=== PATIENT | female | born 1935 | race Caucasian/White ===

== ENCOUNTER 2020-08-03 11:53 | Outpatient (REF) | payer MEDICARE, SELFPAY | END 2020-08-03 11:54 | disposition home or self-care (01) | LOC: HO.10HDL 11:53 | PROVIDERS: Visit Provider Otolaryngology | DX: L50.1 Idiopathic urticaria (principal) | CPT/HCPCS: 36415; 82785; 86003 ==

== ENCOUNTER 2020-10-19 13:09 | Emergency (ER) | payer MEDICARE, SELFPAY ==
--- NOTE | ~2020-10-19 | CT_ITS ---
EXAMINATION: CT BRAIN AND CHEST X-RAY APPEAR CLINICAL INFORMATION: Resolving aphagia. YESTERDAY. COMPARISON: CT brain 11/22/2019 TECHNIQUE: Chest 2 views. 5 mm thin axial and reformatted 2 mm thin coronal and sagittal images of brain were obtained without contrast. DLP [id number] FINDINGS: BRAIN: There is no acute intra-axial, extra-axial bleed, masses or midline shift. There is no acute infarction in evolution. The lateral ventricles are symmetrical in size and configuration without enlargement. The cabrera to white matter differential is maintained normal. The lateral ventricles are symmetrical in size and mildly prominent. Bone windows reveal no calvarial abnormality. Bilateral paranasal sinuses and mastoid air cells are well-aerated. CHEST X-RAY: Both lungs are fairly well-expanded and clear. The heart size and pulmonary vascularity is normal. No gross bony abnormality seen. CT/CT head/brain wo IV con IMPRESSION: Unremarkable chest exam. No acute intracranial process seen.
[2020-10-19 13:14] VITALS: BP 190/83; PULSE 66; RESP 18; TEMP 36.8; O2SAT 95; BMI 28.3
--- NOTE | 2020-10-19 14:21 | ECG_ITS ---
Test Reason : WEAK Blood Pressure : / mmHG Vent. Rate : 059 BPM Atrial Rate : 059 BPM P-R Int : 174 ms QRS Dur : 094 ms QT Int : 422 ms P-R-T Axes : 018 -18 017 degrees QTc Int : 417 ms Sinus bradycardia Otherwise normal ECG When compared with ECG of 22-NOV-2019 16:24, No significant change was found Referred By: Lilibeth Silva Electronically Signed By:KHURRAM ROB
[2020-10-19 14:45] LABS: MANUAL DIFF FLAG NO
[2020-10-19 14:46] LABS: Basophils Absolute Auto 0.1 X10*3/uL (0.0-0.2); Basophils Percent Auto 0.7 % (0-2); Eosinophils Absolute Auto 0.1 X10*3/uL (0.0-0.4); Eosinophils Percent Auto 1.6 % (0-4); Hematocrit 40.6 % (37-47); Hemoglobin 13.6 g/dl (12.0-16.0); Imm Gran Abs Auto 0.02 X10*3/uL (0.00-0.03); Imm Gran Pct Auto 0.3 % (0.0-0.4); Lymphocytes Absolute Auto 1.8 X10*3/uL (1.2-4.9); Lymphocytes Percent Auto 26.7 % (20-40); Mean Corpuscular HGB Conc 33.5 g/dl (31.0-35.0); Mean Corpuscular Hemoglobin 29.4 pg (27.0-33.0); Mean Corpuscular Volume 87.7 fL (80-98); Mean Platelet Volume 9.5 fL (9.4-12.3); Monocytes Absolute Auto 0.7 X10*3/uL (0.1-1.2); Monocytes Percent Auto 9.4 % (2-11); Neutrophils Absolute Auto 4.2 X10*3/uL (2.0-8.3); Neutrophils Percent Auto 61.3 % (45-73); Platelet Count 251 X10*3/uL (160-400); Red Blood Count 4.63 X10*6/uL (4.20-5.50); Red Cell Distribution Width 12.1 % (11.0-16.0); White Blood Count 6.9 X10*3/uL (4.8-10.8)
[2020-10-19 14:58] LABS: Prothrombin Time 11.9 SEC (10.8-13.0)
[2020-10-19 15:26] LABS: Alanine Aminotransferase 11 U/L (0-31); Albumin Level 4.2 g/dL (3.5-5.0); Alkaline Phosphatase 89 U/L (39-117); Anion Gap 12 (12-20); Aspartate Amino Transferase 17 U/L (5-31); Bilirubin Total 0.8 mg/dL (0.0-1.0); Blood Urea Nitrogen 13 mg/dL (9-16); Calcium 9.2 mg/dL (8.4-10.2); Carbon Dioxide 27 mmol/L (22-29); Chloride 100 mmol/L (96-108); Creatinine Clr Calc Pharmacy 48.8; Estimated Glomerular Filt Rate > 60; Glucose Random 98 mg/dL (60-115); Potassium 4.2 mmol/L (3.3-5.1); Sodium 135 mmol/L (135-145); Total Protein 7.3 g/dL (6.5-8.0)
--- NOTE | 2020-10-19 15:45 | ED_ITS ---
HPI - Neuro Symptoms/Deficit General Chief Complaint: General Medical Stated Complaint: multiple complaints Time Seen by Provider: 10/19/20 14:05 Source: patient Mode of arrival: ambulatory Limitations: no limitations History of Present Illness HPI Narrative: 85-year-old female with a past medical history of hypothyroidism and hyperlipidemia presenting to the ED with complaints of resolve aphasia that occurred yesterday around 14:00 where she was unable to express her thoughts. She reports that the symptoms lasted less than 5 minutes. Reports after that she was able to go grocery shopping without any difficulty. She reports she called her niece today and told her what happened yesterday and her niece is a nurse and told that she should come to the ER for CT scan of her brain for a possible mini-stroke per patient. Patient denies any symptoms at this time. Patient denies being on any anticoagulation. Related Data Previous Rx's Medication Instructions Recorded aspirin 81 mg PO DAILY #30 tab 10/19/20 Allergies Allergy/AdvReac Type Severity Reaction Status Date / Time No Known Allergies Allergy Unverified 01/20/20 19:08 [No Known Allergies*] Review of Systems Review of Systems: Constitutional : No Fever, No Chills, No Night Sweats, No Fatigue, No Malaise ENT/Mouth : No Ear Pain, No Nasal Congestion, No Sinus Pain, No sore throat, No Rhinorrhea Eyes: No Eye Pain, No Swelling, No Redness, No Foreign Body, No Discharge, No Vision Changes Cardiovascular : No Chest Pain, No SOB, No Dyspnea on Exertion, No Orthopnea, No Palpitations Respiratory : No Cough, No Sputum, No Wheezing, No Dyspnea Gastrointestinal : No Nausea, No Vomiting, No Diarrhea, No Constipation, No abdominal Pain, No Hematochezia, No Melena Genitourinary : No Dysuria, No Urinary Frequency, No Urinary Incontinence, No Urgency, No Flank Pain Musculoskeletal : No joint pain, No Myalgias Skin : No lacerations Neuro : Positive resolved aphasia, No Focal weakness, no general weakness, No Numbness, No Paresthesias, No Loss of Consciousness, No Dizziness, No Headache Yes all other systems are reviewed and are negative [facility] Past Medical History Attestation statement: The following information was validated with the patient. Medical History High cholesterol Hypothyroid Surgical History History of hysterectomy Social History Social History Advance Directives: Yes Advance Directives Information Provided: Yes Advance Directives on File: No Physical Exam Vital Signs: Vital Signs: Last Vital Signs Temp 98.2 F 10/19/20 13:14 Pulse 66 10/19/20 13:14 Resp 18 10/19/20 13:14 BP 190/83 H 10/19/20 13:14 Pulse Ox 95 10/19/20 13:14 Body Mass Index 28.3 Vital signs have been reviewed as normal and appeared to be correct. Blood pressure hypertensive at 190/83. Heart rate normal. Respiration rate normal. Temperature normal. Oxygen saturation normal. Appearance: Alert. Oriented X3. No acute distress. Head: Normal external exam. Normocephalic. Atraumatic. Able to rotate head bilaterally. Eyes: PERRLA. EOMI. No nystagmus noted. Conjunctiva and sclera normal. Eyelids normal. Corneal reflex normal. ENT: EAC normal. TM's Normal. Hearing normal. Pharynx normal. Uvula midline. tongue midline. Moist mucous membranes. No trismus noted. No drooling noted. No muffled voice noted. No nystagmus noted. Neck: Normal inspection. Neck supple. FROM. No adenopathy. Trachea midline. Thyroid Normal. No meningeal signs. No neck mass noted. CVS: Normal heart rate and rhythm. Heart sound normal. No murmurs noted. Pulses normal throughout. Respiratory: No respiratory distress. Painless inspiration. Breath sounds normal. No wheezes/rales/rhonchi noted. Chest nontender. No accessory muscle usage noted or decreased air movement noted. Abdomen: Soft and nontender. Bowel sounds normal in all 4 quadrants. No distention noted. No organomegaly noted. No visible injury noted. Back: No CVA tenderness. Full range of motion noted. Skin: Skin warm and dry. Normal skin color. Normal skin turgor. No rashes/lesions/lacerations noted. Extremities: No lower extremity edema. Extremities exhibit normal range of motion. Extremities nontender. Able to shrug shoulders bilaterally and keep up against resistance. Neuro: Oriented X 3. No motor deficit. No sensory deficit. Reflexes normal. Moving all extremities. No focal motor deficits. Cranial nerves II-XI intact bilaterally. Facial strength normal. Normal cognition. Speech normal. Gait normal. Strength 5/5 throughout. No pronator drift. No tremor noted. No fasciculations noted. No rigidity noted. Muscle tone normal throughout. No asterixis noted. Bzyagf-lj-[id number] test normal. Heel to oakes test normal. Tandem gait normal. Does not sway with eyes open. Romberg test negative. Rapid al ternating movement upper extremity normal. Rapid alternating movement lower extremity normal. Hand drop from overhead Misses face. NIHSS score 0. Course Course Course Narrative: 14:21pm - 85-year-old female presenting to the ED with complaints of resolve aphasia that occurred yesterday around 14:00 where she was unable to express her thoughts. She reports that the symptoms lasted less than 5 minutes. Reports after that she was able to go grocery shopping without any difficulty. On exam patient is alert oriented x3. No focal neuro deficits are noted. Normal speech. NIH SS score is 0. Patient has non disabling symptoms and not a tPA candidate as symptoms started yesterday around to PN and again patient has non disabling symptoms. Normal steady gait. Lungs clear to auscultation. CV RRR. Abdomen is soft and nontender. No lower extremity edema is noted or calf tenderness. Plan: Labs, chest x-ray, EKG and CT scan of brain then re-evaluate. Reevaluation(s) Reevaluation #1: - labs obtained and all within normal limits. Chest x-ray negative for any acute processes. CT scan of brain within normal limits No acute processes are noted. EKG is normal sinus bradycardia no acute ischemic. - patient reports that she was at the mailbox and could not remember what she was going to ask a neighbor although resolved quickly and she has not had another episode and does not have any weakness or aphasia at this time. This occurred yesterday around 14:00. - therefore at this time I believe it is safe to discharge the patient on aspirin and instructions follow up with her primary care provider. Patient understands agrees with this plan. Time: 16:13 [facility] - Neuro Symptoms/Deficit Medical Records Attestation: I reviewed the patient's medical records. Lab Data Attestation: I reviewed the patient's lab results. Result diagrams: 10/19/20 14:40 10/19/20 14:40 Labs: Lab Results 10/19/20 10/19/20 10/19/20 Range/Units 14:40 14:40 14:40 WBC 6.9 (4.8-10.8) X10*3/uL RBC 4.63 (4.20-5.50) X10*6/uL Hgb 13.6 (12.0-16.0) g/dl Hct 40.6 (37-47) % MCV 87.7 (80-98) fL MCH 29.4 (27.0-33.0) pg MCHC 33.5 (31.0-35.0) g/dl RDW 12.1 (11.0-16.0) % Plt Count 251 (160-400) X10*3/uL MPV 9.5 (9.4-12.3) fL Immature Gran % (Auto) 0.3 (0.0-0.4) % Neut % (Auto) 61.3 (45-73) % Lymph % (Auto) 26.7 (20-40) % Stanly % (Auto) 9.4 (2-11) % Eos % (Auto) 1.6 (0-4) % Baso % (Auto) 0.7 (0-2) % Lymph # (Auto) 1.8 (1.2-4.9) X10*3/uL Stanly # (Auto) 0.7 (0.1-1.2) X10*3/uL Eos # (Auto) 0.1 (0.0-0.4) X10*3/uL Baso # (Auto) 0.1 (0.0-0.2) X10*3/uL Abs Immat Gran (auto) 0.02 (0.00-0.03) X10*3/uL Absolute Neuts (auto) 4.2 (2.0-8.3) X10*3/uL Absolute Nucleated RBC 0.000 (0.0-0.012) X10*3/uL Nucleated RBC % (auto) 0.0 (0.0-0.2) /100WBC Hold Purple Top PT 11.9 (10.8-13.0) SEC INR 1.0 (0.9-1.1) Sodium (135-145) mmol/L Potassium (3.3-5.1) mmol/L Chloride (96-108) mmol/L Carbon Dioxide (22-29) mmol/L Anion Gap (12-20) BUN (9-16) mg/dL Creatinine (0.5-1.4) mg/dL Estim Creat Clear Calc Estimated GFR Random Glucose (60-115) mg/dL Calcium (8.4-10.2) mg/dL Magnesium 2.0 (1.6-2.6) mg/dL Total Bilirubin (0.0-1.0) mg/dL AST (5-31) U/L ALT (0-31) U/L Alkaline Phosphatase (39-117) U/L Total Protein (6.5-8.0) g/dL Albumin (3.5-5.0) g/dL 10/19/20 10/19/20 Range/Units 14:40 14:40 WBC (4.8-10.8) X10*3/uL RBC (4.20-5.50) X10*6/uL Hgb (12.0-16.0) g/dl Hct (37-47) % MCV (80-98) fL MCH (27.0-33.0) pg MCHC (31.0-35.0) g/dl RDW (11.0-16.0) % Plt Count (160-400) X10*3/uL MPV (9.4-12.3) fL Immature Gran % (Auto) (0.0-0.4) % Neut % (Auto) (45-73) % Lymph % (Auto) (20-40) % Stanly % (Auto) (2-11) % Eos % (Auto) (0-4) % Baso % (Auto) (0-2) % Lymph # (Auto) (1.2-4.9) X10*3/uL Stanly # (Auto) (0.1-1.2) X10*3/uL Eos # (Auto) (0.0-0.4) X10*3/uL Baso # (Auto) (0.0-0.2) X10*3/uL Abs Immat Gran (auto) (0.00-0.03) X10*3/uL Absolute Neuts (auto) (2.0-8.3) X10*3/uL Absolute Nucleated RBC (0.0-0.012) X10*3/uL Nucleated RBC % (auto) (0.0-0.2) /100WBC Hold Purple Top SEE NOTE PT (10.8-13.0) SEC INR (0.9-1.1) Sodium 135 (135-145) mmol/L Potassium 4.2 (3.3-5.1) mmol/L Chloride 100 (96-108) mmol/L Carbon Dioxide 27 (22-29) mmol/L Anion Gap 12 (12-20) BUN 13 (9-16) mg/dL Creatinine 0.77 (0.5-1.4) mg/dL Estim Creat Clear Calc 48.8 Estimated GFR > 60 Random Glucose 98 (60-115) mg/dL Calcium 9.2 (8.4-10.2) mg/dL Magnesium (1.6-2.6) mg/dL Total Bilirubin 0.8 (0.0-1.0) mg/dL AST 17 (5-31) U/L ALT 11 (0-31) U/L Alkaline Phosphatase 89 (39-117) U/L Total Protein 7.3 (6.5-8.0) g/dL Albumin 4.2 (3.5-5.0) g/dL Imaging Data CT scan of brain without contrast: Attestation: I personally reviewed and interpreted this imaging study as follows: Radiologist's impression: FINDINGS: BRAIN: There is no acute intra-axial, extra-axial bleed, masses or midline shift. There is no acute infarction in evolution. The lateral ventricles are symmetrical in size and configuration without enlargement. The cabrera to white matter differential is maintained normal. The lateral ventricles are symmetrical in size and mildly prominent. Bone windows reveal no calvarial abnormality. Bilateral paranasal sinuses and mastoid air cells are well-aerated. Chest x-ray: Attestation: I personally reviewed and interpreted this imaging study as follows: Radiologist's impression: Both lungs are fairly well-expanded and clear. The heart size and pulmonary vascularity is normal. No gross bony abnormality seen. ECG Data Attestation: I personally reviewed and interpreted this ECG as follows: ECG interpretation date: 10/19/20 NIH Stroke Scale Internal: Initial- Upon Arrival Time: 14:21 Level of Consciousness: Alert Level of Consciousness Questions: Answers both questions correctly Level of Consciousness Commands: Performs both tasks correctly Best Gaze: Normal Visual: No visual loss Facial Palsy: Normal Motor Arm (Right): No drift Motor Arm (Left): No drift Motor Leg (Right): No drift Motor Leg (Left): No drift Limb Ataxia: Absent Sensory: Normal Best Language: No aphasia Dysarthia: Normal Extinction and Inattention: No abnormality Score: 0 Discharge Plan Discharge Clinical Impression: Encounter for wellness examination Patient Disposition: Home, Self-Care Instructions: Normal Exam (ED) Prescriptions: New aspirin 81 mg tablet,delayed release (DR/EC) 81 mg PO DAILY Qty: 30 RF: 0 Referrals: Dee Garcia MD [Primary Care Provider] - 2 days Print Language: Spanish
== END 2020-10-19 16:43 | disposition home or self-care (01) ==
PROVIDERS: Physician Assistant Medical; Emergency Provider Emergency Medicine; PCP Internal Medicine
DX: Z03.89 Encounter for observation for other suspected diseases and conditions ruled out (principal)
CPT/HCPCS: 36415; 70450; 71046; 80053; 83735; 85025; 85610; 93005; 99283; 99285

== ENCOUNTER → 2020-11-21 14:39 | Outpatient (BNVA) | payer MEDICARE, SELFPAY | PROVIDERS: PCP Internal Medicine; Visit Provider Surgery Vascular Surgery | DX: R47.01 Aphasia (principal); I65.23 Occlusion and stenosis of bilateral carotid arteries | CPT/HCPCS: 99202 ==

== ENCOUNTER 2021-01-03 12:53 | Outpatient (REF) | payer MEDICARE, SELFPAY ==
--- NOTE | ~2021-01-03 | US_ITS ---
EXAMINATION: BILATERAL LOWER EXTREMITY VENOUS ULTRASOUND (Reflux Exam) CLINICAL INDICATION: This is an 85-year-old female with venous insufficiency and varicose veins. COMPARISON: None. TECHNIQUE: Color flow triplex imaging and compression Doppler was performed to evaluate both the deep and the superficial systems bilaterally. To evaluate the superficial system, the examination was performed in the upright position. Color-flow Doppler ultrasound and compression ultrasound were utilized. In addition, maneuvers were utilized to demonstrate reflux. FINDINGS: 1. DEEP VENOUS ULTRASOUND OF THE RIGHT LOWER EXTREMITY: Common Femoral Vein: Compressible, normal respiratory variation and augmented flow. Femoral vein: Compressible, normal color flow and augmentation. Popliteal Vein: Compressible, normal augmentation. Deep Reflux: There is no evidence of reflux in the deep system in either the common femoral vein or the popliteal vein. . There is no evidence of a Mclean's cyst. 2. SUPERFICIAL ULTRASOUND WITH DOPPLER OF RIGHT LOWER EXTREMITY GREAT SAPHENOUS VEIN: Saphenofemoral junction: 0.8 cm. There is no reflux at the junction. Mid thigh: 0.6 cm. The reflux time is 3003 and 76 ms. Above knee: 0.5 cm. The reflux time is 3416 ms per Below knee: 0.6 cm. The reflux time is 3340 ms. Mid calf: 0.5 cm. The reflux time is 2936 ms. Ankle: 0.3 cm GSV REFLUX: There is reflux beginning in the proximal thigh and extending down the leg. There is no reflux at the junction. DUPLICATED GREAT SAPHENOUS VEIN: There is a duplicated lateral great saphenous vein measuring 0.3 cm without reflux. SMALL SAPHENOUS VEIN: Upper: 0.3 cm Lower: 0.3 cm SSV REFLUX: No evidence of reflux. VEIN OF GIACOMINI: None Imaged. PERFORATORS: There is a 0.3 cm office clinician in the mid calf without reflux. VARICOSITIES: There are 0.3 cm proximal thigh, distal thigh, mid calf varicose veins without reflux. 3. DEEP VENOUS ULTRASOUND OF THE LEFT LOWER EXTREMITY: Common Femoral Vein: Compressible, normal respiratory variation and augmented flow. Femoral vein: Compressible, normal color flow and augmentation. Popliteal Vein: Compressible, normal augmentation. Deep Reflux: There is no evidence of reflux in the deep system in either the common femoral vein or the popliteal vein. There is no evidence of a Mclean's cyst. 4. SUPERFICIAL ULTRASOUND WITH DOPPLER OF LEFT LOWER EXTREMITY GREAT SAPHENOUS VEIN: Saphenofemoral junction: 0.7 cm Mid thigh: 0.4 cm Above knee: 0.4 cm Below knee: 0.3 cm Mid calf: 0.2 cm Ankle: 0.3 cm GSV REFLUX: No evidence of reflux. DUPLICATED GREAT SAPHENOUS VEIN: There is a 0.3 cm duplicated lateral great saphenous vein without reflux. SMALL SAPHENOUS VEIN: Upper: 0.2 cm Lower: 0.2 cm SSV REFLUX: No evidence of reflux. VEIN OF GIACOMINI: None Imaged. PERFORATORS: None Imaged VARICOSITIES: There are 0.3 cm mid calf varicose veins with the reflux time of 3120 ms. There are 0.3 cm proximal and mid thigh, respectively, varicose veins without reflux. US/US venous duplex LE BI IMPRESSION: 1. There is a patent right great saphenous vein without reflux at the junction. The reflux begins in the proximal right thigh. 2. 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 3. There is a right small saphenous vein without reflux. 4. There are varicose veins on the right as described. 5. There is a patent left great saphenous vein without reflux. 6. There is a duplicated left lateral great saphenous vein without reflux. 7. There is a left small saphenous vein without reflux. 8. There are left-sided varicose veins as described.
== END 2021-01-03 12:54 | disposition home or self-care (01) ==
LOC: HO.US 12:53
PROVIDERS: Visit Provider Surgery Vascular Surgery
DX: I83.893 Varicose veins of bilateral lower extremities with other complications (principal)
CPT/HCPCS: 93970

== ENCOUNTER → 2021-02-08 15:14 | Outpatient (BNVA) | payer MEDICARE, SELFPAY | PROVIDERS: PCP Internal Medicine; Referring Provider Internal Medicine; Visit Provider Surgery Vascular Surgery | DX: I83.11 Varicose veins of right lower extremity with inflammation (principal); I65.23 Occlusion and stenosis of bilateral carotid arteries; E78.00 Pure hypercholesterolemia, unspecified; E03.9 Hypothyroidism, unspecified | CPT/HCPCS: 99212 ==

== ENCOUNTER 2021-12-05 11:48 | Outpatient (REF) | payer MEDICARE, SELFPAY ==
[2021-12-05 12:22] LABS: MANUAL DIFF FLAG NO
[2021-12-05 12:40] LABS: Basophils Percent Auto 0.7 % (0-2); Eosinophils Absolute Auto 0.1 X10*3/uL (0.0-0.4); Eosinophils Percent Auto 2.3 % (0-4); Hematocrit 39.1 % (37.0-47.0); Hemoglobin 13.2 g/dl (12.0-16.0); Imm Gran Abs Auto 0.01 X10*3/uL (0.00-0.03); Imm Gran Pct Auto 0.2 % (0.0-0.4); Lymphocytes Absolute Auto 1.9 X10*3/uL (1.2-4.9); Mean Corpuscular HGB Conc 33.8 g/dl (31.0-35.0); Mean Corpuscular Hemoglobin 29.7 pg (27.0-33.0); Mean Corpuscular Volume 87.9 fL (80.0-98.0); Mean Platelet Volume 10.3 fL (9.4-12.3); Monocytes Absolute Auto 0.6 X10*3/uL (0.1-1.2); Monocytes Percent Auto 10.2 % (2-11); Neutrophils Absolute Auto 3.4 x10*3/uL (2.0-8.3); Neutrophils Percent Auto 55.6 % (45-73); Platelet Count 224 X10*3/uL (160-400); Red Blood Count 4.45 X10*6/uL (4.20-5.50); Red Cell Distribution Width 12.1 % (11.0-16.0); White Blood Count 6.1 X10*3/uL (4.8-10.8)
[2021-12-05 14:32] LABS: Free T4 (Free Thyroxine) 1.12 ng/dL (0.71-1.85); Thyroid Stimulating Hormone 1.49 uIU/mL (0.32-4.0); Vitamin D 25-OH Total 62.1 ng/mL (>30)
[2021-12-05 15:00] LABS: Alanine Aminotransferase 16 U/L (0-31); Albumin Level 4.3 g/dL (3.5-5.0); Alkaline Phosphatase 71 U/L (39-117); Anion Gap 14 (12-20); Aspartate Amino Transferase 20 U/L (5-31); Bilirubin Total 0.9 mg/dL (0.0-1.0); Blood Urea Nitrogen 12 mg/dL (9-16); Calcium 9.1 mg/dL (8.4-10.2); Carbon Dioxide 25 mmol/L (22-29); Chloride 103 mmol/L (96-108); Cholesterol 143 mg/dL; Estimated Glomerular Filt Rate > 60; Glucose Fasting 88 mg/dL (60-99); HDL Cholesterol 43 mg/dL; LDL Cholesterol Calculated 79 mg/dl; Potassium 4.2 mmol/L (3.3-5.1); Sodium 138 mmol/L (135-145); Total Protein 7.1 g/dL (6.5-8.0); Triglycerides 109 mg/dL
== END 2021-12-05 11:49 | disposition home or self-care (01) ==
LOC: HO.LAB 11:48
PROVIDERS: PCP Internal Medicine; Visit Provider Internal Medicine
DX: E78.00 Pure hypercholesterolemia, unspecified (principal); E03.9 Hypothyroidism, unspecified; E55.9 Vitamin D deficiency, unspecified
CPT/HCPCS: 36415; 80053; 80061; 82306; 84439; 84443; 85025

== ENCOUNTER 2021-12-14 12:32 | Outpatient (REF) | payer MEDICARE, SELFPAY ==
--- NOTE | ~2021-12-14 | MM_ITS ---
EXAMINATION: MM SCREENING DIGITAL BREAST TOMOSYNTHESIS, BILATERAL CLINICAL INFORMATION: Screening. Asymptomatic. Remote prior mammography 2001 no longer available. The lifetime risk of breast cancer based on the Tyrer-Cuzick Model is 1%. COMPARISON: None (current study represents new baseline exam). TECHNIQUE: Digital breast tomosynthesis is performed in both the craniocaudal and mediolateral oblique views along with computer-aided detection (CAD). Synthesized 2D images are generated from the tomosynthesis. FINDINGS: There are scattered areas of fibroglandular density (ACR BI-RADS breast composition Category b). There are no significant masses, abnormal calcifications, or other abnormalities. The axilla and skin contours are unremarkable. MM/MM tomosynthesis screening BI IMPRESSION: No mammographic evidence of malignancy. ASSESSMENT: BI-RADS 1: Negative RECOMMENDATION: Routine annual mammography screening. This patient's information was entered into a reminder system with a target due date for their next mammogram.
--- NOTE | ~2021-12-14 | MM_ITS ---
EXAMINATION: BONE DENSITOMETRY CLINICAL INDICATION: Asymptomatic menopausal state. COMPARISON: None (current study represents initial baseline exam). TECHNIQUE: Using a [employer] DXA System (software version: 13.1) manufactured by [employer], dual-energy x-ray absorptiometry was performed of the lumbar spine and left hip. The images are of good technical quality. Summary results are attached. FINDINGS: AP SPINE L1-L2 (excluding L3 and L4): The data of L1-L4 has been changed to exclude the L3 and L4 vertebral bodies, because degenerative changes at these levels may cause overestimation of lumbar spine density. BMD 1.173 g/cm2, Z-score 2.0, T-score 0.1, normal. LEFT FEMUR, NECK: BMD 0.824 g/cm2, Z-score 0.8, T-score -1.5, osteopenia. LEFT FEMUR, TOTAL: BMD 1.016 g/cm2, Z-score 2.3, T-score 0.1, normal. IDENTIFIED RISK FACTORS: Menopause, hysterectomy, bilateral oophorectomy. HISTORY OF FRACTURE: None listed. MEDICATIONS: Vitamin D. MM/XR DEXA axial skeleton IMPRESSION: 1. DIAGNOSIS: Osteopenia based on the lowest T-score value of -1.5 in the femoral neck applying World Health Organization criteria. 2. 10-YEAR FRACTURE RISK PREDICTION, FRAX: Major osteoporotic fracture (clinical spine, forearm, hip or shoulder) 13.9%. Hip fracture 3.8%. 3. Treatment Recommendations: NOF guidelines recommend consideration for treatment in postmenopausal women and men age 50 and older presenting with the following: -A hip or vertebral (clinical or morphometric) fracture. -T-score less than or equal to -2.5 at the femoral neck or spine after appropriate evaluation to exclude secondary causes. -Low bone mass at the hip or spine and a 10-year fracture probability by FRAX of greater than or equal to 3% for hip fracture or greater than or equal to 20% for major osteoporotic fracture based on the [place] adapted WHO algorithm. 4. Other Recommendations: All treatment decisions require clinical judgment and consideration of individual patient factors, including patient preferences, comorbidities, previous drug use, risk factors not captured in the FRAX model (e.g. frailty, falls, vitamin D deficiency, increased bone turnover, interval significant decline in bone density) and possible under or overestimation of fracture risk by FRAX. Additional medical evaluation for secondary cause of low bone mineral density may be appropriate. FUTURE SCAN RECOMMENDATION: People with diagnosed cases of osteoporosis or at high risk for fracture should have regular bone mineral density tests. For patients eligible for Medicare, routine testing is allowed once every 2 years. The testing frequency can be increased to one year for patients who have rapidly progressing disease, those who are receiving or discontinuing medical therapy to restore bone mass, or have additional risk factors.
== END 2021-12-14 12:33 | disposition home or self-care (01) ==
LOC: HO.MAMMO 12:32
PROVIDERS: PCP Internal Medicine; Visit Provider Internal Medicine
DX: Z12.31 Encounter for screening mammogram for malignant neoplasm of breast (principal); Z13.820 Encounter for screening for osteoporosis; Z78.0 Asymptomatic menopausal state
CPT/HCPCS: 77063; 77067; 77080

== ENCOUNTER 2022-10-18 11:02 | Outpatient (REF) | payer MEDICARE, SELFPAY ==
[2022-10-18 14:12] LABS: Appearance Urine Cloudy; Color Urine Yellow; Glucose Urine UA Negative (Negative); Leukocyte Esterase Urine Large (3+) (Negative); Nitrite Urine Negative (Negative); PH 7.5 (5.0-9.0); Specific Gravity - Urine <= 1.005 (1.005-1.025); UMIC TRIGGER UA YES; Urine Blood Small (1+) (Negative); Urine Ketones Negative (Negative); Urine Protein Negative (Neg-Trace)
[2022-10-18 14:32] LABS: Bacteria Urine None Seen (None Seen); Hyaline Casts Urine 0-2 /LPF (0-2); RBC Urine 0-2 /HPF (0-2); Squamous Epithelial Cell Urine 0-2 /HPF (0-2); WBC Urine >50 /HPF (0-5)
== END 2022-10-18 11:03 | disposition home or self-care (01) ==
LOC: HO.10HDL 11:02
PROVIDERS: Visit Provider Internal Medicine
DX: R30.0 Dysuria (principal)
CPT/HCPCS: 81001; 81003; 87086

== ENCOUNTER 2022-11-02 11:38 | Emergency (ER) | payer MEDICARE, SELFPAY ==
--- NOTE | ~2022-11-02 | XR_ITS ---
EXAMINATION: XR CHEST CLINICAL INFORMATION: Cough and desaturation COMPARISON: 10/19/2020 TECHNIQUE: 2 views of the chest were obtained. FINDINGS: Nonspecific basal reticular markings unchanged likely minor airways disease. No focal pneumonia. No effusion or pneumothorax. Lung volumes preserved. Stable heart and mediastinum within normal limits. No pulmonary edema. No mass or adenopathy. Nonobstructive gas pattern. Atherosclerotic peripheral vascular disease. Positional scoliosis. XR/XR chest 2V IMPRESSION: No acute disease. 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
[2022-11-02 11:40] VITALS: BP 116/74; PULSE 96; RESP 19; TEMP 36.6; O2SAT 90; BMI 25.6
--- NOTE | 2022-11-02 11:42 | ED_ITS ---
HPI - General Adult General Chief complaint: General Medical Stated complaint: covid test Time Seen by Provider: 11/02/22 11:44 Source: patient Mode of arrival: ambulatory Limitations: no limitations History of Present Illness HPI narrative: Patient is an 87-year-old female with history of hypothyroid, carotid stenosis, and high cholesterol presenting to the emergency department with one week of diarrhea. Recently took Macrobid followed by a course of Cipro for a UTI, states diarrhea began 3-4 days after that. Reports several episodes per hour of diarrhea when not using Imodium. Last episode of diarrhea was 2:30 a.m. today, patient took Imodium prior to arrival. Does not have a thermometer at home but states has felt sweats/chills. Denies abdominaly pain, nausea, vomiting but reports decreased appetite. Denies any blood in stool or dark, tarry stool. Has been able to tolerate fluids, has been drinking water and Gatorade. Reports prior to treatment for UTI she had a cold for approximately 1 week which improved with Mucinex. Reports lingering nonproductive cough. Denies shortness of breath at rest or on exertion. Denies any chest pain. MD complaint: diarrhea Onset (ago): day(s) Location: abdomen Radiation: non-radiation Treatments prior to arrival: other (Imodium) Related Data Home Medications Medication Instructions Recorded Confirmed levothyroxine 50 mcg tablet 50 mcg PO DAILY 11/21/20 rosuvastatin 10 mg tablet 10 mg PO DAILY 11/21/20 nystatin 100,000 unit/gram topical 1 appl topical BID 02/08/21 cream Previous Rx's Medication Instructions Recorded aspirin 81 mg tablet,delayed 81 mg PO DAILY #30 tabs 10/19/20 release vancomycin 125 mg capsule 125 mg PO QID #40 caps 11/02/22 (Vancocin) Allergies Allergy/AdvReac Type Severity Reaction Status Date / Time No Known Allergies Allergy Verified 02/08/21 15:18 [No Known Allergies*] Review of Systems Review of Systems: As per HPI. Yes all other systems are reviewed and are negative Constitutional: Constitutional: Reports as per HPI PMF Past Medical History Medical History High cholesterol Hypothyroid Surgical History History of hysterectomy Social History Social History Advance Directives: No Advance Directives Information Provided: Yes Physical Exam ED Vital Signs: Vital Signs - 24 hr 11/02/22 11:40 11/02/22 11:59 11/02/22 13:51 Temperature 98 F 98.4 F Pulse Rate 96 93 79 Respiratory Rate 19 16 Blood Pressure 116/74 124/62 Pulse Oximetry 90 L 97 95 Oxygen Delivery Method Room Air Room Air Room Air 11/02/22 15:25 11/02/22 15:38 Temperature 97.5 F Pulse Rate 81 Respiratory Rate 15 Blood Pressure 121/64 Pulse Oximetry 92 94 Oxygen Delivery Method Room Air Room Air BMI result Body Mass Index 25.6 Vital signs have been reviewed and appear to be correct. Blood pressure normal. Heart rate normal. Respiratory rate normal. Temperature normal. Oxygen saturation initially low, repeat normal. Const General: cooperative, healthy appearing and no acute distress Orientation/consciousness: oriented to person, oriented to place, oriented to time and patient oriented x3 Limitations: no limitations HENMT Head: Yes normocephalic and Yes atraumatic Ears: external ears normal General nose exam: Normal external nose present Face and sinus: Yes face symmetric Mouth: oropharynx normal and moist mucous membranes Throat: Yes uvula midline Eyes Pupils: Equal, round and reactive pupils present Neck Neck: Yes normal visual inspection and Yes supple Resp Effort & Inspection: normal respiratory effort and able to speak in complete sentences Auscultation: clear to auscultation bilaterally Cardio Rate: regular rate Rhythm: regular rhythm Heart sounds: S1 normal heart sound present and S2 normal heart sound present GI Palpation (GI): Soft to palpation and nontender Auscultation: normoactive bowel sounds General: Yes no CVA tenderness Back/Spine/Pelvis Back: no CVA tenderness Skin General skin exam: elasticity normal and turgor normal Neuro General: oriented to person, oriented to place, oriented to time, patient oriented x3, moves all extremities, no focal motor deficits and CN's II-XI intact bilaterally Cranial nerves: Yes Equal, round and reactive pupils present Cognition (Neuro): normal cognition Extrem General: Yes full ROM, Yes no pedal edema and Yes no calf tenderness Psych Mental Status: mental status grossly normal Affect: normal affect Thought process: Normal thought process present Course Course Course Narrative: RME performed by Antonette Sahu PA-C. Patient is an 87 year old assigned female at presenting to the emergency department with diarrhea and nasal congestion. Patient states that she was told to come here by her niece who is an RN so that she can get tested for COVID because she has diarrhea and congestion. Labs and swab ordered. Patient placed back in the waiting room pending room availability and results. Medical Decision Making Medical Decision Making [facility] Narrative: Patient is an 87-year-old female with history of hypothyroid, carotid stenosis, and high cholesterol presenting to the emergency department with one week of diarrhea. On exam patient is awake, A+Ox3, nontoxic appearing, VS WNL, af ebrile, normal neurological exam without focal deficits, LS CTA throughout, abdomen soft and nontender with normoactive bowel sounds, no CVA tenderness. Given reported symptoms and physical exam findings, differential includes C. diff, other antibiotic associated diarrhea, electrolyte abnormality. Labs notable for leukocytosis with left shift, slight hyponatremia, mildly elevated bilirubin. X-ray notable for no acute disease. My interpretation is in agreement with the radiologist's interpretation. Considered but think unlikely diverticulitis, bowel obstruction, abscess. Stool positive for C. diff. Patient updated on results. Prescribed Vancomycin QID x 10 days. Instructed patient to follow-up with PCP, return precautions discussed bedside. All other results discussed and questions answered, patient agreeable to plan. Differential Diagnosis Differential Diagnoses: The differential diagnosis associated with the pres entation includes C. diff, other antibiotic associated diarrhea, electrolyte abnormality Admission/Observation Consideration of admission/observation: Escalation of care including admission/observation considered Considered upon initial assessment given report of frequent diarrhea and concern for possible electrolyte abnormality Lab Data [facility] Lab Attestation statement: I reviewed the patient's lab results. See above 11/02/22 11:55 11/02/22 11:55 Labs: Lab Results 11/02/22 11/02/22 11/02/22 Range/Units 11:55 11:55 11:55 WBC 17.9 H (4.8-10.8) X10*3/uL RBC 4.52 (4.20-5.50) X10*6/uL Hgb 13.1 (12.0-16.0) g/dl Hct 38.7 (37.0-47.0) % MCV 85.6 (80.0-98.0) fL MCH 29.0 (27.0-33.0) pg MCHC 33.9 (31.0-35.0) g/dl RDW 12.0 (11.0-16.0) % Plt Count 241 (160-400) X10*3/uL MPV 9.9 (9.4-12.3) fL Immature Gran % (Auto) 0.6 H (0.0-0.4) % Neut % (Auto) 80.4 H (45-73) % Lymph % (Auto) 5.7 L (20-40) % Mcleod % (Auto) 12.9 H (2-11) % Eos % (Auto) 0.1 (0-4) % Baso % (Auto) 0.3 (0-2) % Lymph # (Auto) 1.0 L (1.2-4.9) X10*3/uL Mcleod # (Auto) 2.3 H (0.1-1.2) X10*3/uL Eos # (Auto) 0.0 (0.0-0.4) X10*3/uL Baso # (Auto) 0.1 (0.0-0.2) X10*3/uL Abs Immat Gran (auto) 0.10 H (0.00-0.03) X10*3/uL Absolute Neuts (auto) 14.4 H (2.0-8.3) x10*3/uL Absolute Nucleated RBC 0.000 (0.0-0.012) X10*3/uL Nucleated RBC % (auto) 0.0 (0.0-0.2) /100WBC Smear Tech's Comments VERIFIED Sodium 132 L (135-145) mmol/L Potassium 3.4 (3.3-5.1) mmol/L Chloride 98 (96-108) mmol/L Carbon Dioxide 23 (22-29) mmol/L Anion Gap 14 (12-20) BUN 14 (9-16) mg/dL Creatinine 1.01 (0.5-1.4) mg/dL Estim Creat Clear Calc 35.6 Estimated GFR 52 Random Glucose 118 H (60-115) mg/dL Calcium 9.4 (8.4-10.2) mg/dL Magnesium 1.7 (1.6-2.6) mg/dL Total Bilirubin 1.5 H (0.0-1.0) mg/dL AST 25 (5-31) U/L ALT 14 (0-31) U/L Alkaline Phosphatase 91 (39-117) U/L Total Protein 7.1 (6.5-8.0) g/dL Albumin 3.8 (3.5-5.0) g/dL Stl C. cayetanensis PCR Stool Rotavirus A PCR Stl Adenov F 40/41 PCR Stool Astrovirus (PCR) Stool Campylobacter PCR Stool Cryptosporidium PCR Stl Sh Tox Pr E STEC PCR Stool E coli O157 PCR Stl Enterotoxigenic E PCR Stool EPEC (PCR) Stool EAEC (PCR) Stl E. histolytica PCR Stool Giardia Lamblia PCR Stl P. shigelloides PCR Stool Salmonella PCR Stool Sapovirus (PCR) Stl Shigella/EIEC PCR St Y.enterocolitica PCR Stool Vibrio (PCR) Stl Vibrio cholerae PCR Stl Norovirus GI/GII PCR C. difficile Tox B Gene (Negative) COVID-19 (AURELIA) Negative (Negative) COVID-19 Clin Com See Note 11/02/22 11/02/22 Range/Units 14:56 14:56 WBC (4.8-10.8) X10*3/uL RBC (4.20-5.50) X10*6/uL Hgb (12.0-16.0) g/dl Hct (37.0-47.0) % MCV (80.0-98.0) fL MCH (27.0-33.0) pg MCHC (31.0-35.0) g/dl RDW (11.0-16.0) % Plt Count (160-400) X10*3/uL MPV (9.4-12.3) fL Immature Gran % (Auto) (0.0-0.4) % Neut % (Auto) (45-73) % Lymph % (Auto) (20-40) % Mcleod % (Auto) (2-11) % Eos % (Auto) (0-4) % Baso % (Auto) (0-2) % Lymph # (Auto) (1.2-4.9) X10*3/uL Mcleod # (Auto) (0.1-1.2) X10*3/uL Eos # (Auto) (0.0-0.4) X10*3/uL Baso # (Auto) (0.0-0.2) X10*3/uL Abs Immat Gran (auto) (0.00-0.03) X10*3/uL Absolute Neuts (auto) (2.0-8.3) x10*3/uL Absolute Nucleated RBC (0.0-0.012) X10*3/uL Nucleated RBC % (auto) (0.0-0.2) /100WBC Smear Tech's Comments Sodium (135-145) mmol/L Potassium (3.3-5.1) mmol/L Chloride (96-108) mmol/L Carbon Dioxide (22-29) mmol/L Anion Gap (12-20) BUN (9-16) mg/dL Creatinine (0.5-1.4) mg/dL Estim Creat Clear Calc Estimated GFR Random Glucose (60-115) mg/dL Calcium (8.4-10.2) mg/dL Magnesium (1.6-2.6) mg/dL Total Bilirubin (0.0-1.0) mg/dL AST (5-31) U/L ALT (0-31) U/L Alkaline Phosphatase (39-117) U/L Total Protein (6.5-8.0) g/dL Albumin (3.5-5.0) g/dL Stl C. cayetanensis PCR Cancelled Stool Rotavirus A PCR Cancelled Stl Adenov F 40/41 PCR Cancelled Stool Astrovirus (PCR) Cancelled Stool Campylobacter PCR Cancelled Stool Cryptosporidium PCR Cancelled Stl Sh Tox Pr E STEC PCR Cancelled Stool E coli O157 PCR Cancelled Stl Enterotoxigenic E PCR Cancelled Stool EPEC (PCR) Cancelled Stool EAEC (PCR) Cancelled Stl E. histolytica PCR Cancelled Stool Giardia Lamblia PCR Cancelled Stl P. shigelloides PCR Cancelled Stool Salmonella PCR Cancelled Stool Sapovirus (PCR) Cancelled Stl Shigella/EIEC PCR Cancelled St Y.enterocolitica PCR Cancelled Stool Vibrio (PCR) Cancelled Stl Vibrio cholerae PCR Cancelled Stl Norovirus GI/GII PCR Cancelled C. difficile Tox B Gene POSITIVE A* (Negative) COVID-19 (AURELIA) (Negative) COVID-19 Clin Com Independent Interpretation I performed an independent interpretation of an: Plain X-Ray Interpretation: I independently reviewed the x-ray and agree with the radiologist's interpretation of no acute disease Radiology Impression Discussion of test interpretation with radiology: I have reviewed the radiologist's reading. Radiologist Impression: XR/XR chest 2V IMPRESSION: No acute disease. 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 External Record Review External record reviewed: Inpatient record, Office record and Outpatient record Prescription Management I considered prescription management with: Antibiotic (vanco) Discharge Plan Discharge Clinical Impression: Clostridium difficile diarrhea Patient Disposition: Home, Self-Care Instructions: C. Diff (Clostridioides Difficile) Infection (ED) Additional Instructions: You are being treated for a C. diff infection with an antibiotic called Vancomycin. Please follow-up with your primary care provider within 2 days. Return to the emergency department with abdominal pain, worsening diarrhea, chest pain, shortness of breath, fever 100.4? F or greater, or any other concerning symptoms. Prescriptions: New vancomycin [Vancocin] 125 mg capsule 125 mg PO QID Qty: 40 0RF No Action aspirin 81 mg tablet,delayed release (DR/EC) 81 mg PO DAILY Qty: 30 0RF
[2022-11-02 11:59] VITALS: PULSE 93; O2SAT 97
--- NOTE | 2022-11-02 12:03 | PC.NURSE ---
pt SpO2 90%on RA, reassessed in exam room pt SpO2 97% RA, lungs CTA
[2022-11-02 13:51] VITALS: BP 124/62; PULSE 79; RESP 16; TEMP 36.9; O2SAT 95
[2022-11-02 15:25] VITALS: BP 121/64; PULSE 81; RESP 15; TEMP 36.4; O2SAT 92
[2022-11-02 15:38] VITALS: O2SAT 94
== END 2022-11-02 17:47 | disposition home or self-care (01) ==
PROVIDERS: Emergency Provider Emergency Medicine Emergency Medical Services
DX: A04.72 Enterocolitis due to Clostridium difficile, not specified as recurrent (principal); E78.00 Pure hypercholesterolemia, unspecified; Z20.822 Contact with and (suspected) exposure to COVID-19
CPT/HCPCS: 71046; 80053; 83735; 85025; 87324; 87493; 87507; 87635; 99283; 99284

== ENCOUNTER 2022-11-12 09:58 | Outpatient (REF) | payer MEDICARE, SELFPAY ==
[2022-11-12 10:33] LABS: MANUAL DIFF FLAG NO
[2022-11-12 12:31] LABS: Basophils Absolute Auto 0.1 X10*3/uL (0.0-0.2); Basophils Percent Auto 0.5 % (0-2); Eosinophils Absolute Auto 0.3 X10*3/uL (0.0-0.4); Eosinophils Percent Auto 2.8 % (0-4); Hematocrit 37.8 % (37.0-47.0); Hemoglobin 12.2 g/dl (12.0-16.0); Imm Gran Abs Auto 0.07 X10*3/uL (0.00-0.03); Imm Gran Pct Auto 0.6 % (0.0-0.4); Lymphocytes Absolute Auto 1.6 X10*3/uL (1.2-4.9); Lymphocytes Percent Auto 13.5 % (20-40); Mean Corpuscular HGB Conc 32.3 g/dl (31.0-35.0); Mean Corpuscular Volume 89.8 fL (80.0-98.0); Mean Platelet Volume 9.7 fL (9.4-12.3); Monocytes Absolute Auto 0.8 X10*3/uL (0.1-1.2); Monocytes Percent Auto 7.2 % (2-11); Neutrophils Absolute Auto 8.8 x10*3/uL (2.0-8.3); Neutrophils Percent Auto 75.4 % (45-73); Platelet Count 354 X10*3/uL (160-400); Red Blood Count 4.21 X10*6/uL (4.20-5.50); Red Cell Distribution Width 12.3 % (11.0-16.0); White Blood Count 11.6 X10*3/uL (4.8-10.8)
[2022-11-12 13:02] LABS: Anion Gap 15 (12-20); Blood Urea Nitrogen 9 mg/dL (9-16); Calcium 9.5 mg/dL (8.4-10.2); Carbon Dioxide 26 mmol/L (22-29); Chloride 103 mmol/L (96-108); Estimated Glomerular Filt Rate > 60; Glucose Random 93 mg/dL (60-115); Potassium 3.7 mmol/L (3.3-5.1); Sodium 140 mmol/L (135-145)
[2022-11-12 13:25] LABS: Free T4 (Free Thyroxine) 1.12 ng/dL (0.71-1.85); Thyroid Stimulating Hormone 2.68 uIU/mL (0.32-4.0)
== END 2022-11-12 09:59 | disposition home or self-care (01) ==
LOC: HO.LAB 09:58
PROVIDERS: PCP Internal Medicine; Visit Provider Internal Medicine
DX: E03.9 Hypothyroidism, unspecified (principal); N18.9 Chronic kidney disease, unspecified; B96.89 Other specified bacterial agents as the cause of diseases classified elsewhere
CPT/HCPCS: 36415; 80048; 84439; 84443; 85025

== ENCOUNTER 2022-11-26 11:58 | Outpatient (REF) | payer MEDICARE, SELFPAY ==
[2022-11-26 13:52] LABS: Appearance Urine Turbid; Color Urine Yellow; Glucose Urine UA Negative (Negative); Leukocyte Esterase Urine Large (3+) (Negative); Nitrite Urine Positive (Negative); PH 6.5 (5.0-9.0); UMIC TRIGGER UACC YES; Urine Blood Trace (Negative); Urine Ketones Negative (Negative); Urine Protein 30 (1+) mg/dL (Neg-Trace)
[2022-11-26 13:55] LABS: Bacteria Urine 4+ (None Seen); RBC Urine 0-2 /HPF (0-2); UACC Culture Trigger YES; WBC Urine >50 /HPF (0-5)
== END 2022-11-26 11:59 | disposition home or self-care (01) ==
LOC: HO.10HDLNP 11:58
PROVIDERS: Visit Provider Internal Medicine
DX: R30.0 Dysuria (principal)
CPT/HCPCS: 81001; 87086; 87088; 87186

== ENCOUNTER 2022-11-28 09:27 | Emergency (ER) | payer MEDICARE, SELFPAY ==
[2022-11-28 09:43] VITALS: BP 100/52; PULSE 82; RESP 18; TEMP 36.7; O2SAT 92; BMI 25.6
--- NOTE | 2022-11-28 11:33 | ED.NAVMDI ---
HPI - Nausea/Vomiting/Diarrhea General Chief complaint: Nausea/Vomiting/Diarrhea Stated complaint: diarrhea Time Seen by Provider: 11/28/22 10:44 Source: patient Mode of arrival: ambulatory Limitations: no limitations History of Present Illness HPI Narrative: 87-year-old female with history of hypothyroid, carotid stenosis, and high cholesterol, C diff diagnosis on November 02 completed 10 days of vancomycin who presents to the ER with multiple episodes of diarrhea since yesterday. Patient reports on November 13 she was prescribed a course of ciprofloxacin for a urinary tract infection. She had a another urinary tract infection on November 26 and was prescribed a cephalosporin. Yesterday morning she developed diarrhea which is nonbloody. Patient reports multiple episodes unable to quantify since yesterday. She did have some chills yesterday but no fever. She had 1 episode of vomiting yesterday but none today. She has had abdominal cramping. Associated nausea: Yes Related Data Home Medications Medication Instructions Recorded Confirmed levothyroxine 50 mcg tablet 50 mcg PO DAILY 11/21/20 rosuvastatin 10 mg tablet 10 mg PO DAILY 11/21/20 nystatin 100,000 unit/gram topical 1 appl topical BID 02/08/21 cream Previous Rx's Medication Instructions Recorded aspirin 81 mg tablet,delayed 81 mg PO DAILY #30 tabs 10/19/20 release vancomycin 125 mg capsule 125 mg PO QID #40 caps 11/02/22 (Vancocin) fidaxomicin 200 mg tablet 200 mg PO Q12H 10 days #20 tabs 11/28/22 Allergies Allergy/AdvReac Type Severity Reaction Status Date / Time No Known Allergies Allergy Verified 02/08/21 15:18 [No Known Allergies*] Review of Systems Review of Systems: Yes all other systems are reviewed and are negative Constitutional: Constitutional: Reports no additional constitutional complaints, Denies body ache(s), Reports chills, Denies fever(s), Denies headache(s) and Denies weakness Eyes: Eyes: Reports no additional eye complaints and Denies change in vision ENT: Reports system reviewed and no additional complaints, except as documented, Denies dizziness, Denies headache(s), Denies nasal congestion, Denies nasal discharge and Denies neck pain Cardiovascular: Cardiovascular: Reports no additional cardiovascular complaints, Denies chest pain, Denies leg edema and Denies dyspnea Respiratory: Respiratory: Reports no additional respiratory complaints, Denies cough and Denies dyspnea Gastrointestinal: Gastrointestinal: Reports no additional gastrointestinal complaints, Reports abdominal pain, Reports diarrhea, Reports nausea and Reports vomiting Genitourinary: Genitourinary: Reports no additional female genitourinary complaints and Denies urinary incontinence Musculoskeletal: Musculoskeletal: Reports no additional musculoskeletal complaints, Denies back pain, Denies arthralgias, Denies joint swelling, Denies neck pain, Denies numbness and Denies tingling Integumentary/Breasts: Skin/Breast: Reports system reviewed and no additional complaints, except as docu and Denies rash Neurologic: Reports system reviewed and no additional complaints, except as documented, Denies Abnormal speech present, Denies dizziness, Denies headache(s), Denies numbness, Denies tingling and Denies weakness PMFSH Past Medical History Attestation statement: The following information was validated with the patient. Source: old records reviewed and nursing notes reviewed Medical History High cholesterol Hypothyroid Surgical History History of hysterectomy Social History Social History Alcohol intake: never Smoked in Last 30 Days: No Use of substances other than those prescribed or required for medical reasons: No Advance Directives: No Physical Exam Vital Signs: Vital Signs: Last Vital Signs Temp 98.0 F 11/28/22 09:43 Pulse 84 11/28/22 14:10 Resp 16 11/28/22 14:10 BP 125/53 L 11/28/22 14:10 Pulse Ox 92 11/28/22 14:10 O2 Del Method Room Air 11/28/22 14:10 BMI result Body Mass Index 25.6 Const: General: cooperative, healthy appearing, comfortable and no acute distress Orientation/consciousness: patient oriented x3 Limitations: no limitations HEENT: Head: Yes normal to inspection Ears: hearing grossly normal bilaterally General nose exam: Normal external nose present Face and sinus: Yes normal facial exam Mouth: Normal oral and palatal mucosa present Throat: Yes posterior oropharynx normal Eyes: General: appearance normal, both eyes and all related structures Pupils: Equal, round and reactive pupils present Neck: Neck: Yes normal visual inspection Chest: Chest palpation & inspection: normal inspection of the chest Resp: Effort & Inspection: normal respiratory effort Auscultation: clear to auscultation bilaterally Cardio: Rate: regular rate Rhythm: regular rhythm Peripheral pulses: Peripheral pulses 2+ throughout GI: Inspection: Yes normal to inspection Palpation (GI): Soft to palpation, nontender and no guarding Auscultation: normal bowel sounds Back/Spine/Pelvis: Thoracic/Lumbar Spine: thoracic and lumbar spine normal to inspection Skin: General skin exam: no rashes or lesions noted Neuro: General: patient oriented x3, no focal motor deficits and normal sensation to monofilament Cranial nerves: Yes Equal, round and reactive pupils present Cognition (Neuro): normal cognition Speech: No Abnormal speech present Gait exam (Neuro): Normal gait present Motor exam (neuro): 5/5 motor strength present throughout Extrem: General: Yes normal to inspection Course Course Course Narrative: C diff is positive. Stool culture was sent and is pending. I reviewed the labs. Patient has a mild leukocytosis with no shift. She has normal renal function. Repeat abdominal exam is benign. She has no focal tenderness. Overall she is nontoxic appearing. Patient appears very well hydrated. As this is her 2nd course of antibiotics for C diff we will try to prescribe her fidaxomicin. I explained to the patient and may be difficult for pharmacy to get over the insurance to cover this. She does have a prescription for vancomycin at home and I explained to her that if her insurance does not cover this to take the vancomycin instead. She is currently on cefuroxime for urinary tract infection. She has a urine culture from November 26 which shows greater than 100,000 E coli pansensitive. I recommend she only take the cefuroxime for 5 days total and then discontinue it. Recommend patient follow-up with primary care outpatient. Reviewed worrisome signs and symptoms of when to return to the emergency room. Comfortable plan for discharge home. Medical Decision Making Medical Decision Making [facility] Narrative: 87-year-old female who was diagnosed with C diff on November 02 and completed a 10 day course of vancomycin who has had several rounds of antibiotics since for urinary tract infections presents to the ER with complaints of multiple episodes of diarrhea since yesterday with abdominal cramping, chills and 1 episode of vomiting. On exam patient has no focal abdominal pain. Normal bowel sounds. Well-hydrated appearing. Vital stable. Will check labs, C diff studies Differential Diagnosis Differential Diagnoses: The differential diagnosis associated with the presentation includes C diff, infectious diarrhea Low concern for acute abdominal pathology Admission/Observation Consideration of admission/observation: Escalation of care including admission/observation considered c diff positive however patient well appearing, no fever, tolerating po, no focal abdominal pain, well hydrated-no need for admit Lab Data MDM Lab Attestation statement: I reviewed the patient's lab results. C diff positive Mild leukocytosis with no shift. Normal renal function 11/28/22 11:47 11/28/22 11:47 Labs: Lab Results 11/28/22 11/28/22 11/28/22 Range/Units 11:19 11:47 11:47 WBC 16.5 H (4.8-10.8) X10*3/uL RBC 4.41 (4.20-5.50) X10*6/uL Hgb 13.0 (12.0-16.0) g/dl Hct 38.6 (37.0-47.0) % MCV 87.5 (80.0-98.0) fL MCH 29.5 (27.0-33.0) pg MCHC 33.7 (31.0-35.0) g/dl RDW 13.1 (11.0-16.0) % Plt Count 223 D (160-400) X10*3/uL MPV 10.4 (9.4-12.3) fL Immature Gran % (Auto) 0.5 H (0.0-0.4) % Neut % (Auto) 84.4 H (45-73) % Lymph % (Auto) 6.9 L (20-40) % [place] % (Auto) 7.7 (2-11) % Eos % (Auto) 0.1 (0-4) % Baso % (Auto) 0.4 (0-2) % Lymph # (Auto) 1.1 L (1.2-4.9) X10*3/uL [place] # (Auto) 1.3 H (0.1-1.2) X10*3/uL Eos # (Auto) 0.0 (0.0-0.4) X10*3/uL Baso # (Auto) 0.1 (0.0-0.2) X10*3/uL Abs Immat Gran (auto) 0.09 H (0.00-0.03) X10*3/uL Absolute Neuts (auto) 13.9 H (2.0-8.3) x10*3/uL Absolute Nucleated RBC 0.000 (0.0-0.012) X10*3/uL Nucleated RBC % (auto) 0.0 (0.0-0.2) /100WBC Sodium 133 L (135-145) mmol/L Potassium 3.8 (3.3-5.1) mmol/L Chloride 99 (96-108) mmol/L Carbon Dioxide 23 (22-29) mmol/L Anion Gap 15 (12-20) BUN 12 (9-16) mg/dL Creatinine 0.88 (0.5-1.4) mg/dL Estim Creat Clear Calc 40.9 Estimated GFR > 60 Random Glucose 96 (60-115) mg/dL Lactic Acid (0.5-2.0) mmol/L Calcium 8.8 D (8.4-10.2) mg/dL Magnesium 1.9 (1.6-2.6) mg/dL Total Bilirubin 1.5 H (0.0-1.0) mg/dL Direct Bilirubin 0.5 (0.0-0.5) mg/dL AST 16 (5-31) U/L ALT 13 (0-31) U/L Alkaline Phosphatase 76 (39-117) U/L Total Protein 6.9 (6.5-8.0) g/dL Albumin 3.8 (3.5-5.0) g/dL C. difficile Tox B Gene POSITIVE A* (Negative) C. difficile Toxin A&B Negative (Negative) C. difficile Interpret SEE NOTE 11/28/22 Range/Units 11:47 WBC (4.8-10.8) X10*3/uL RBC (4.20-5.50) X10*6/uL Hgb (12.0-16.0) g/dl Hct (37.0-47.0) % MCV (80.0-98.0) fL MCH (27.0-33.0) pg MCHC (31.0-35.0) g/dl RDW (11.0-16.0) % Plt Count (160-400) X10*3/uL MPV (9.4-12.3) fL Immature Gran % (Auto) (0.0-0.4) % Neut % (Auto) (45-73) % Lymph % (Auto) (20-40) % [place] % (Auto) (2-11) % Eos % (Auto) (0-4) % Baso % (Auto) (0-2) % Lymph # (Auto) (1.2-4.9) X10*3/uL [place] # (Auto) (0.1-1.2) X10*3/uL Eos # (Auto) (0.0-0.4) X10*3/uL Baso # (Auto) (0.0-0.2) X10*3/uL Abs Immat Gran (auto) (0.00-0.03) X10*3/uL Absolute Neuts (auto) (2.0-8.3) x10*3/uL Absolute Nucleated RBC (0.0-0.012) X10*3/uL Nucleated RBC % (auto) (0.0-0.2) /100WBC Sodium (135-145) mmol/L Potassium (3.3-5.1) mmol/L Chloride (96-108) mmol/L Carbon Dioxide (22-29) mmol/L Anion Gap (12-20) BUN (9-16) mg/dL Creatinine (0.5-1.4) mg/dL Estim Creat Clear Calc Estimated GFR Random Glucose (60-115) mg/dL Lactic Acid 1.0 (0.5-2.0) mmol/L Calcium (8.4-10.2) mg/dL Magnesium (1.6-2.6) mg/dL Total Bilirubin (0.0-1.0) mg/dL Direct Bilirubin (0.0-0.5) mg/dL AST (5-31) U/L ALT (0-31) U/L Alkaline Phosphatase (39-117) U/L Total Protein (6.5-8.0) g/dL Albumin (3.5-5.0) g/dL C. difficile Tox B Gene (Negative) C. difficile Toxin A&B (Negative) C. difficile Interpret Prescription Management I considered prescription management with: Antibiotic see discussion in course Discharge Plan Discharge Clinical Impression: Clostridium difficile infection Patient Disposition: Home, Self-Care Instructions: C. Diff (Clostridioides Difficile) Infection (ED) Additional Instructions: Only take your cefuroxime for a total of 5 days. You should only have 4 pills left when this time for you to stop taking this medication You do have C diff Increase probiotics in her diet and eat a yogurt daily Start taking Fidaxomicin. If the pharmacy cannot get you this medication or if your insurance will not cover the medication please take the vancomycin instead for 10 days. Return for worsening abdominal pain, fever, vomiting, feeling dizzy or lightheaded If you continue to get C diff you may be a candidate for a fecal transplant. This can be discussed with your primary care Prescriptions: New fidaxomicin 200 mg tablet 200 mg PO Q12H 10 Days Qty: 20 0RF No Action aspirin 81 mg tablet,delayed release (DR/EC) 81 mg PO DAILY Qty: 30 0RF vancomycin [Vancocin] 125 mg capsule 125 mg PO QID Qty: 40 0RF Referrals: Sunil Gastelum MD [Primary Care Provider] - 1 week (as needed)
[2022-11-28 12:00] LABS: MANUAL DIFF FLAG NO
[2022-11-28 12:07] LABS: Basophils Absolute Auto 0.1 X10*3/uL (0.0-0.2); Basophils Percent Auto 0.4 % (0-2); Eosinophils Percent Auto 0.1 % (0-4); Hematocrit 38.6 % (37.0-47.0); Imm Gran Abs Auto 0.09 X10*3/uL (0.00-0.03); Imm Gran Pct Auto 0.5 % (0.0-0.4); Lymphocytes Absolute Auto 1.1 X10*3/uL (1.2-4.9); Lymphocytes Percent Auto 6.9 % (20-40); Mean Corpuscular HGB Conc 33.7 g/dl (31.0-35.0); Mean Corpuscular Hemoglobin 29.5 pg (27.0-33.0); Mean Corpuscular Volume 87.5 fL (80.0-98.0); Mean Platelet Volume 10.4 fL (9.4-12.3); Monocytes Absolute Auto 1.3 X10*3/uL (0.1-1.2); Monocytes Percent Auto 7.7 % (2-11); Neutrophils Absolute Auto 13.9 x10*3/uL (2.0-8.3); Neutrophils Percent Auto 84.4 % (45-73); Platelet Count 223 X10*3/uL (160-400); Red Blood Count 4.41 X10*6/uL (4.20-5.50); Red Cell Distribution Width 13.1 % (11.0-16.0); White Blood Count 16.5 X10*3/uL (4.8-10.8)
[2022-11-28 12:27] LABS: Anion Gap 15 (12-20)
[2022-11-28 12:59] LABS: Alanine Aminotransferase 13 U/L (0-31); Albumin Level 3.8 g/dL (3.5-5.0); Alkaline Phosphatase 76 U/L (39-117); Aspartate Amino Transferase 16 U/L (5-31); Bilirubin Direct 0.5 mg/dL (0.0-0.5); Bilirubin Total 1.5 mg/dL (0.0-1.0); Blood Urea Nitrogen 12 mg/dL (9-16); Calcium 8.8 mg/dL (8.4-10.2); Carbon Dioxide 23 mmol/L (22-29); Chloride 99 mmol/L (96-108); Creatinine Clr Calc Pharmacy 40.9; Estimated Glomerular Filt Rate > 60; Glucose Random 96 mg/dL (60-115); Magnesium 1.9 mg/dL (1.6-2.6); Potassium 3.8 mmol/L (3.3-5.1); Sodium 133 mmol/L (135-145); Total Protein 6.9 g/dL (6.5-8.0)
[2022-11-28 13:21] LABS: CDiff Gene PCR POSITIVE (Negative)
[2022-11-28 13:57] LABS: CDIFF Internal ctrl Dots and bkg OK (V); CDiff Toxin Negative (Negative)
[2022-11-28 14:10] VITALS: BP 125/53; PULSE 84; RESP 16; O2SAT 92
[2022-11-29 16:02] LABS: Adenovirus F 40/41 Not Detected (Not Detect.); Astrovirus Not Detected (Not Detect.); Campylobacter Not Detected (Not Detect.); Cryptosporidium Not Detected (Not Detect.); Cyclospora cayetanensis Not Detected (Not Detect.); E. coli EAEC Not Detected (Not Detect.); E. coli EPEC Not Detected (Not Detect.); E. coli ETEC Not Detected (Not Detect.); E. coli STEC Not Detected (Not Detect.); Entamoeba histolytica Not Detected (Not Detect.); Giardia lamblia Not Detected (Not Detect.); Norovirus GI/GII Not Detected (Not Detect.); Plesiomonas shigelloides Not Detected (Not Detect.); Rotavirus A Not Detected (Not Detect.); Salmonella Not Detected (Not Detect.); Sapovirus Not Detected (Not Detect.); Shigella sp./EIEC Not Detected (Not Detect.); Vibrio Not Detected (Not Detect.); Vibrio Cholerae Not Detected (Not Detect.); Yersinia enterocolitica Not Detected (Not Detect.)
== END 2022-11-28 15:25 | disposition home or self-care (01) ==
PROVIDERS: Nurse Practitioner Family; Emergency Provider Emergency Medicine Emergency Medical Services; PCP Internal Medicine
DX: A04.72 Enterocolitis due to Clostridium difficile, not specified as recurrent (principal); R11.2 Nausea with vomiting, unspecified; N39.0 Urinary tract infection, site not specified; R19.7 Diarrhea, unspecified; Z79.899 Other long term (current) drug therapy
CPT/HCPCS: 36415; 80048; 80076; 83605; 83735; 85025; 87040; 87324; 87493; 87507; 99283; 99284

== ENCOUNTER 2022-12-05 11:53 | Outpatient (REF) | payer MEDICARE, SELFPAY ==
[2022-12-05 13:44] LABS: Appearance Urine Turbid; Color Urine Yellow; Glucose Urine UA Negative (Negative); Leukocyte Esterase Urine Large (3+) (Negative); Nitrite Urine Negative (Negative); Specific Gravity - Urine 1.015 (1.005-1.025); UMIC TRIGGER UACC YES; Urine Blood Moderate (2+) (Negative); Urine Ketones Negative (Negative); Urine Protein 30 (1+) mg/dL (Neg-Trace)
[2022-12-05 13:50] LABS: Bacteria Urine 2+ (None Seen); Hyaline Casts Urine 0-2 /LPF (0-2); RBC Urine >20 /HPF (0-2); UACC Culture Trigger YES; WBC Urine >50 /HPF (0-5)
== END 2022-12-05 11:54 | disposition home or self-care (01) ==
LOC: HO.10HDLNP 11:53
PROVIDERS: Visit Provider Internal Medicine
DX: R30.0 Dysuria (principal)
CPT/HCPCS: 81001; 87086; 87088; 87186

== ENCOUNTER 2022-12-17 12:00 | Outpatient (AMB) | payer MEDICARE, SELFPAY ==
--- NOTE | 2022-12-17 13:13 | AM.OFFWIN_ITS ---
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 Pt states her urine has been cloudy. 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 She reports frequent UTIs in the past. She actually developed C-diff from frequent antibiotic use. She has been taking probiotics and increasing hydration. She an appointment with Urology this month on the . She reports only having cloudy urine. Denies any urgency, frequency, burning with urination. Denies any fever chills. PFSH Medical History High cholesterol Hypothyroid Surgical History History of hysterectomy Social History Alcohol intake: never Patient Tobacco Use Status: Never used Tobacco Review of Systems Const All systems reviewed & are unremarkable except as noted in HPI and below Physical Exam Vital Signs: Last Vital Signs Temp 97 F 12/17/22 13:19 Pulse 66 12/17/22 13:19 BP 126/62 12/17/22 13:19 Pulse Ox 96 12/17/22 13:19 Oxygen Delivery Method Room Air 12/17/22 13:19 BMI result Body Mass Index 23.6 Const General: cooperative, healthy appearing, comfortable and no acute distress Resp Effort & Inspection: normal respiratory effort and able to speak in complete sentences Auscultation: clear to auscultation bilaterally Cardio Jugular venous distension: no JVD Palpation: normal PMI Rate: regular rate Rhythm: regular rhythm General: Yes bladder normal to palpation and Yes no CVA tenderness Bimanual exam- vagina & uterus: bladder normal to palpation Back/Spine/Pelvis Back: no CVA tenderness Skin General skin exam: no rashes or lesions noted Psych Appearance: grossly normal Mental Status: mental status grossly normal Speech and movement: Normal speech and movement present Results AMB Urinalysis, Automated UA Leukoctes 125 [place]/uL Last Edit by Renuka Sanders CMA on 12/17/22 13:39 UA Nitrite Negative Last Edit by Renuka Sanders, JEF on 12/17/22 13:39 UA Urobilinogen 0.2 mg/dL Last Edit by Renuka Sanders, JEF on 12/17/22 13:39 UA Protein 0 mg/dL Last Edit by Renuka Sanders, JEF on 12/17/22 13:39 UA pH 6.0 Last Edit by Renuka Sanders, JEF on 12/17/22 13:39 UA Blood 0 Nazario/uL Last Edit by Renuka Sanders, JEF on 12/17/22 13:39 UA Specific [place] 1.010 Last Edit by Renuka Sanders CMA on 12/17/22 13:3 9 UA Ketone Negative Last Edit by Renuka Sanders CMA on 12/17/22 13:39 UA Bilirubin 0 mg/dL Last Edit by Renuka Sanders, JEF on 12/17/22 13:39 UA Glucose 0 mg/dL Last Edit by Renuka Sanders CMA on 12/17/22 13:39 Assessment & Plan Assessment & Plan (1) Cloudy urine: Code(s): R82.90 - Unspecified abnormal findings in urine Plan: Patient presented today with cloudy urine, however no other symptoms of UTI. She has a history significant for very frequent UTIs and frequent antibiotic use, so much that she has developed C diff in the past. She has urology appointment this month in another week or so. Her urine dip in the office showed only 2+ leukocytes. No nitrite, no blood, no protein. I discussed this with patient and ideally would like to hold off on antibiotics for now, given her history. Patient agrees with this plan, and will increase hydration and closely monitor for any additional UTI symptoms. If these develop, she can start the course of abx which I have prescribed. Otherwise she will not fill rx. She agrees to plan. Orders: Orders AMB Urinalysis Automated Today Z13.9 - Encounter for screening, unspecified Medications: New nitrofurantoin macrocrystal must administer with a meal/food 100 mg PO BID 10 caps 0RF 5 days R82.90 - Unspecified abnormal findings in urine Coding Level of Care Code Est Pt Level 3 (47696) Diagnoses Cloudy urine R82.90
[2022-12-17 13:19] VITALS: BP 126/62; PULSE 66; TEMP 36.1; O2SAT 96; BMI 23.6
== END 2022-12-17 14:07 | disposition home or self-care (01) ==
PROVIDERS: PCP Internal Medicine; Visit Provider Nurse Practitioner Family
DX: R82.90 Unspecified abnormal findings in urine (principal)
CPT/HCPCS: 81003; 99213

== ENCOUNTER 2022-12-27 11:59 | Outpatient (REF) | payer MEDICARE, SELFPAY | END 2022-12-27 12:00 | disposition home or self-care (01) | LOC: HO.LNP 11:59 | PROVIDERS: PCP Internal Medicine; Visit Provider Nurse Practitioner Family | DX: N39.0 Urinary tract infection, site not specified (principal); R31.29 Other microscopic hematuria | CPT/HCPCS: 51798; 81003; 87086; 87088; 87186; 99202 ==

== ENCOUNTER 2022-12-27 11:59 | Outpatient (AMB) | payer MEDICARE, SELFPAY ==
--- NOTE | 2022-12-27 11:59 | MHC.OFFVIS ---
Intake Intake Visit Reasons: recurrent UTI Intake Note: New Patient presents for initial visit recurrent uti Urology Medications: ?macrobid Blood Thinner: aspirin PVR: 0ml's Ux Developer Designer Required: No Accompanied by: Self / Same As Patient Allergies No Known Allergies [No Known Allergies*] Allergy (Verified 12/28/22 14:53) Medication List - Last Reconciled 12/28/22 by ALMA DELIA Rivera aspirin 81 mg PO DAILY estradiol 0.01%(0.1mg/gram) vaginally 3 times a week; pea sized amount to urethra 3 times a week 30 days levothyroxine 50 mcg PO DAILY nystatin 1 appl topical BID rosuvastatin 10 mg PO DAILY HPI HPI Comments History of Present Illness Details Maryann is a pleasant 87 year old female patient of Dr. Gastelum. She has a past medical history of hypothyroidism and hypercholesteremia. She presents to the office today as a new patient for recurrent urinary tract infections. She reports to have a history of bladder prolapse with surgical intervention approximately [address] Zayda Melchor. She also reports having had a hysterectomy at the age of [age] years old. She discusses having followed up with [facility] in [place] approximately 2 weeks ago for cloudy urine at which time she was prescribed antibiotics for a urinary tract infection. She reports having followed up with her GP 2-3 times prior to this for urinary tract infection. When asked she denies any issues with constipation. She reports to be drinking plenty of water daily. In office urinalysis results reviewed with the patient today. Discussed at length potential causes for recurrent urinary tract infections as well as further workup to include imaging and potential in office cystoscopy if symptoms persist and/or worsen. Currently patient reporting cloudy urine with intermittent episodes of dysuria upon urination however she denies urinary urgency, urinary frequency, incontinence, nocturia, hematuria, foul smelling urine, changes to urinary stream, flank pain, fever, and or chills. She is happy with her current voiding parameters. She otherwise offers no other issues or concerns at this time. [facility] Medical History (Updated 12/28/22 @ 15:07 by ALMA DELIA Rivera) High cholesterol Hypothyroid Surgical History (Updated 12/28/22 @ 14:58 by ALMA DELIA Rivera) History of bladder suspension procedure History of hysterectomy Social History Alcohol intake: never Patient Tobacco Use Status: Never used Tobacco Review of Systems Const Reports as per HPI Eyes Reports no additional complaints ENT Reports no additional complaints Card Reports as per HPI Resp Reports no additional complaints GI Reports no additional complaints Reports as per HPI Musc Reports no additional complaints Neuro Reports no additional complaints Psych Reports no additional complaints Endo Reports as per HPI Avila/Lymph Reports no additional complaints Aller/Immun Reports no additional complaints Physical Exam Const General: cooperative, healthy appearing, comfortable, no acute distress, well developed, alert and awake Nutritional Appearance: average body habitus Orientation/consciousness: patient oriented x3 Limitations: no limitations HEENT Head: Yes normal to inspection, Yes normocephalic and Yes atraumatic Ears: hearing grossly normal bilaterally Eyes General: appearance normal, both eyes and all related structures Neck Neck: Yes normal visual inspection and Yes trachea midline Chest Chest palpation & inspection: normal inspection of the chest Resp Effort & Inspection: normal respiratory effort and able to speak in complete sentences Cardio Rate: regular rate GI Inspection: Yes normal to inspection General: Yes no CVA tenderness Back/Spine/Pelvis Back: no CVA tenderness Skin General skin exam: no rashes or lesions noted Neuro General: patient oriented x3 Extrem General: Yes normal to inspection Psych Appearance: grossly normal and well kempt Mental Status: mental status grossly normal Speech and movement: Normal speech and movement present and Clear speech present Affect: normal affect Attitude: cooperative Thought process: Normal thought process present Thought content: Normal thought content present Insight: Good insight present (Psych) Judgement: Good judgement present (Psych) Office Procedures Post Void Residual Post Residual Void Post Void Residual (PVR): 0 51386-Czsv Void Residual by ultrasound Results AMB Urinalysis, Automated UA Leukoctes 15 Chilo/uL Last Edit by Novacem Ophelia on 12/27/22 12:19 UA Nitrite Last Edit by Novacem Ophelia on 12/27/22 12:19 UA Urobilinogen 0.2 mg/dL Last Edit by Sigma Pharmaceuticalsarthur Siegel[employer]rus [employer] on 12/27/22 12:19 UA Protein 0 mg/dL Last Edit by Yassetsgaro on 12/27/22 12:19 UA pH 6.0 Last Edit by Novacem Ophelia on 12/27/22 12:19 UA Blood 10 Nazario/uL Last Edit by Maximarthur Siegelgaro on 12/27/22 12:19 UA Specific [place] 1.010 Last Edit by Marlin Jacinto on 12/27/22 12:19 UA Ketone Negative Last Edit by Marlin Jacinto on 12/27/22 12:19 UA Bilirubin 0 mg/dL Last Edit by Marlin Jacinto on 12/27/22 12:19 UA Glucose 0 mg/dL Last Edit by Marlin Jacinto on 12/27/22 12:19 Results Reviewed Results Reviewed: Laboratory Last Values Urine pH (Auto) 6.0 12/27/22 12:06 Specific [place] (Auto) 1.010 12/27/22 12:06 Urine Protein (Auto) 0 mg/dL 12/27/22 12:06 Glucose (UA)(Auto) 0 mg/dL 12/27/22 12:06 Urine Ketones (Auto) Negative 12/27/22 12:06 Urine Blood (Auto) 10 Nazario/uL 12/27/22 12:06 Urine Bilirubin (Auto) 0 mg/dL 12/27/22 12:06 Urine Urobilinogen (Auto) 0.2 mg/dL 12/27/22 12:06 Leukocyte Esterase (Auto) 15 Chilo/uL 12/27/22 12:06 Assessment & Plan Assessment & Plan (1) Recurrent UTI: Code(s): N39.0 - Urinary tract infection, site not specified (2) Microscopic hematuria: Code(s): R31.29 - Other microscopic hematuria Plan In office urinalysis results reviewed with the patient today; as noted above; will send for urine culture. Will obtain retroperitoneal ultrasound for further assessment evaluation. Start Estrace cream as discussed and prescribed. Discussed at length importance of continuing to drink plenty of water daily. Discussed UTI prevention with D mannose supplement, vitamin-C, increasing fluid intake, behavioral therapy with timed voiding, perineal hygiene and postcoital voiding, and management of constipation with stool softeners and increased fiber intake. Follow-up in 6-8 weeks with imaging to be completed prior; or sooner with any issues, concerns, and or questions. Orders: Orders US retroperitoneal comp 12/27/22 N39.0 - Urinary tract infection, site not specified Urine Culture 12/27/22 N39.0 - Urinary tract infection, site not specified AMB Urinalysis Automated 12/27/22 Z13.9 - Encounter for screening, unspecified AMB Post Void Residual by ultrasound 12/27/22 Z13.9 - Encounter for screening, unspecified Medications: New estradiol 0.01%(0.1mg/gram) vaginally 3 times a week; pea sized amount to urethra 3 times a week 30 days 42.5 grams 0RF R32 - Unspecified urinary incontinence Patient Instructions: The patient had an opportunity to ask questions regarding the treatment plan. All questions were answered. Physical exam, labs, and imaging were discussed and reviewed in detail. As well as risks, benefits, and discussion of treatment choices. No major barriers to understanding were identified. The patient expressed understanding and agreement with the above treatment plan. The patient was made aware they should contact our office by phone for worsening of their current condition, the appearance of new symptoms, or with any questions or concerns. Compliance is encouraged with any medications and follow up testing that is ordered. It is a privilege to be allowed the opportunity to participate in? your urological care.? Again, if you have any questions or concerns If you have any questions or concerns please do not hesitate to contact me. The office is [phone]. This note is constructed using voice recognition software. While every effort has been made to ensure accuracy curtain hemmer automatic errors may have been included. Yours sincerely, ALMA DELIA Rivera Coding Level of Care Code New Pt Level 4 (94040) Diagnoses Recurrent UTI N39.0 Microscopic hematuria R31.29 CPT Codes Post Residual Void - PVR CPT Code: 64255-Npnp Void Residual by ultrasound ([id number])
== END 2022-12-27 12:46 | disposition home or self-care (01) ==
PROVIDERS: PCP Internal Medicine; Visit Provider Nurse Practitioner Family
DX: Z13.9 Encounter for screening, unspecified (principal)
CPT/HCPCS: 99204

== ENCOUNTER 2022-12-30 10:39 | Outpatient (REF) | payer MEDICARE, SELFPAY ==
[2022-12-30 14:07] LABS: CDiff Gene PCR POSITIVE (Negative)
[2022-12-30 14:50] LABS: CDIFF Internal ctrl Dots and bkg OK (V)
[2022-12-30 14:54] LABS: CDiff Toxin Positive (Negative)
== END 2022-12-30 10:40 | disposition home or self-care (01) ==
LOC: HO.10HDLNP 10:39
PROVIDERS: Visit Provider Nurse Practitioner Family
DX: K52.9 Noninfective gastroenteritis and colitis, unspecified (principal)
CPT/HCPCS: 87324; 87493

== ENCOUNTER 2023-01-14 15:17 | Outpatient (REF) | payer MEDICARE, SELFPAY ==
--- NOTE | ~2023-01-14 | US_ITS ---
EXAMINATION: US RETROPERITONEAL COMPLETE (RENAL) CLINICAL INFORMATION: Urinary tract infection, site not specified. COMPARISON: CT abdomen and pelvis 01/01/2016. TECHNIQUE: Real-time imaging of the kidneys and bladder. FINDINGS: RIGHT KIDNEY: 9.2 x 5.4 x 4.6 cm (SAG x AP x TRV). The kidney is normal in size, contour, and echogenicity. Renal cortical thickness is normal. No calculi or focal parenchymal lesions. No hydronephrosis. LEFT KIDNEY: 10.0 x 5.8 x 3.9 cm (SAG x AP x TRV). The kidney is normal in size, contour, and echogenicity. Renal cortical thickness is normal. No calculi or focal parenchymal lesions. No hydronephrosis. BLADDER: Well distended and normal. Bilateral ureteral jets are demonstrated. Prevoid bladder volume is 223.2 mL. Postvoid bladder volume is 48 mL. US/US retroperitoneal comp IMPRESSION: Small postvoid bladder residual of 48 mL. Otherwise unremarkable renal ultrasound.
== END 2023-01-14 15:18 | disposition home or self-care (01) ==
LOC: HO.US 15:17
PROVIDERS: Visit Provider Nurse Practitioner Family
DX: N39.0 Urinary tract infection, site not specified (principal)
CPT/HCPCS: 76770

== ENCOUNTER 2023-01-15 14:16 | Outpatient (AMB) | payer MEDICARE, SELFPAY ==
[2023-01-15 14:23] VITALS: BP 120/64; PULSE 82; O2SAT 96; BMI 24.0
--- NOTE | 2023-01-15 14:23 | A.OFFVIS_ITS ---
Intake Vital Signs 01/15/23 14:23 Height 5 ft 2 in Weight 131 lb BMI 24.0 BP 120/64 Blood Pressure Location Lt brachial Position Sitting Pulse 82 Pulse Source Pulse Oximeter Pulse Oximetry (%) 96 Intake Visit Reasons: Ref.[facility],Urology,recurrent cdiff Allergies No Known Allergies [No Known Allergies*] Allergy (Verified 12/28/22 14:53) HPI Ref.C,Urology,recurrent cdiff HPI Details She is here for Cdiff referral. She has had antibiotics for UTI and episodes of diarrhea. She has been treated but still has diarrhea after po Vancomycin stopped. [facility] Medical History (Updated 01/24/23 @ 16:24 by Rebekah Esqueda MD) Clostridium difficile colitis High cholesterol Hypothyroid Surgical History History of bladder suspension procedure History of hysterectomy Social History Alcohol intake: never Patient Tobacco Use Status: Never used Tobacco Review of Systems Const All systems reviewed & are unremarkable except as noted in HPI and below Physical Exam Vital Signs: Last Vital Signs Pulse 82 01/15/23 14:23 BP 120/64 01/15/23 14:23 Pulse Ox 96 01/15/23 14:23 BMI result Body Mass Index 24.0 Const General: cooperative Orientation/consciousness: patient oriented x3 HEENT Head: Yes normal to inspection Mouth: Normal oral and palatal mucosa present Eyes General: appearance normal, both eyes and all related structures Pupils: Equal, round and reactive pupils present Resp Effort & Inspection: normal respiratory effort Cardio Rate: regular rate Rhythm: regular rhythm GI Palpation (GI): Soft to palpation and nontender General: Yes no CVA tenderness Back/Spine/Pelvis Back: no CVA tenderness Skin General skin exam: no rashes or lesions noted Neuro General: patient oriented x3 Cranial nerves: Yes CN's II-XII intact bilaterally and Yes Equal, round and reactive pupils present Extrem General: Yes normal to inspection Psych Appearance: grossly normal Assessment & Plan Assessment & Plan (1) Clostridium difficile colitis: Comment: She should get suppressive treatment Code(s): A04.72 - Enterocolitis due to Clostridium difficile, not specified as recurrent Plan Indefinite duration po Vancomycin. Consider Zinplava if no CHF and wants to get off Vancomycin. See every six months. Medications: New vancomycin 125 mg po qid for 10 days and then 125 mg po every , , Friday thereafter 125 mg PO QID 120 caps 0RF 30 days A04.72 - Enterocolitis due to Clostridium difficile, not specified as recurrent Coding Level of Care Code New Pt Level 3 (09134) Diagnoses Clostridium difficile colitis A04.72
== END 2023-01-15 15:12 | disposition home or self-care (01) ==
LOC: HO.HID 14:16
PROVIDERS: PCP Internal Medicine; Visit Provider Internal Medicine
DX: A04.72 Enterocolitis due to Clostridium difficile, not specified as recurrent (principal)
CPT/HCPCS: 99203

== ENCOUNTER → 2023-01-15 14:16 | Outpatient (BNVA) | payer MEDICARE, SELFPAY | PROVIDERS: PCP Internal Medicine; Visit Provider Internal Medicine ==

== ENCOUNTER 2023-01-28 12:27 | Outpatient (AMB) | payer MEDICARE, SELFPAY ==
--- NOTE | 2023-01-28 13:27 | A.OFFVIS_ITS ---
Intake Intake Visit Reasons: follow up/US(set) Intake Note: Patient presents for follow up visit recurrent uti/ultrasound (imaging 01/14/23) Urology Medications: Estrace Cream Blood Thinner: aspirin PVR: 0ml's Dip Guider Stoves Required: No Accompanied by: Self / Same As Patient Allergies No Known Allergies [No Known Allergies*] Allergy (Verified 01/28/23 15:06) Medication List - Last Reconciled 01/28/23 by PATEL Rivera- aspirin 81 mg PO DAILY estradiol 0.01%(0.1mg/gram) vaginally 3 times a week; pea sized amount to urethra 3 times a week 30 days levothyroxine 50 mcg PO DAILY nystatin 1 appl topical BID rosuvastatin 10 mg PO DAILY sulfamethoxazole-trimethoprim 800-160 mg (Bactrim DS) 1 tab PO BID vancomycin 125 mg PO QID 30 days HPI HPI Comments History of Present Illness Details Maryann is a pleasant 87 year old female patient of Dr. Gastelum. She has a past medical history of hypothyroidism and hypercholesteremia. She presents to the office today for follow-up. Of note, patient was seen approximately 1month ago as a new patient for recurrent urinary tract infections at which time a retroperitoneal ultrasound was ordered for further assessment evaluation. During last office visit patient was noted to have a urinary tract infection at which time she was treated for UTI as well as C diff. Referral sent for infectious disease. In discussion with the patient today she reports having followed up with Dr. Esqueda and is currently on supression therapy for C diff. recent retroperitoneal ultrasound results reviewed with the patient today. Bilateral kidneys with no calculi, lesions, and or hydronephrosis noted. The bladder is well distended and normal. Bilateral ureteral jets are demonstrated. Pre void bladder volume is approximately 225 mL. Postvoid bladder volume is approximately 50 mL. She reports to be drinking plenty of water daily. In office urinalysis results reviewed with the patient today. Discussed at length potential causes for recurrent urinary tract infections. Patient denies any bothersome urinary issues or concerns at this time. She denies urinary urgency, urinary frequency, incontinence, nocturia, hematuria, dysuria, foul smelling urine, changes to urinary stream, flank pain, fever, and or chills. PVR 0 mL. She is happy with her current voiding parameters. [facility] Medical History Clostridium difficile colitis High cholesterol Hypothyroid Surgical History History of bladder suspension procedure History of hysterectomy Social History Alcohol intake: never Patient Tobacco Use Status: Never used Tobacco Review of Systems Const Reports as per HPI Eyes Reports no additional complaints ENT Reports no additional complaints Card Reports as per HPI Resp Reports no additional complaints GI Reports no additional complaints Reports as per HPI Musc Reports no additional complaints Neuro Reports no additional complaints Psych Reports no additional complaints Endo Reports as per HPI Avila/Lymph Reports no additional complaints Aller/Immun Reports no additional complaints Physical Exam Const General: cooperative, healthy appearing, comfortable, no acute distress, well developed, alert and awake Nutritional Appearance: average body habitus Orientation/consciousness: patient oriented x3 Limitations: no limitations HEENT Head: Yes normal to inspection, Yes normocephalic and Yes atraumatic Ears: hearing grossly normal bilaterally Eyes General: appearance normal, both eyes and all related structures Neck Neck: Yes normal visual inspection and Yes trachea midline Chest Chest palpation & inspection: normal inspection of the chest Resp Effort & Inspection: normal respiratory effort and able to speak in complete sentences Cardio Rate: regular rate GI Inspection: Yes normal to inspection General: Yes no CVA tenderness Back/Spine/Pelvis Back: no CVA tenderness Skin General skin exam: no rashes or lesions noted Neuro General: patient oriented x3 Extrem General: Yes normal to inspection Psych Appearance: grossly normal and well kempt Mental Status: mental status grossly normal Speech and movement: Normal speech and movement present and Clear speech present Affect: normal affect Attitude: cooperative Thought process: Normal thought process present Thought content: Normal thought content present Insight: Good insight present (Psych) Judgement: Good judgement present (Psych) Office Procedures Post Void Residual Post Residual Void Post Void Residual (PVR): 0 [id number]-[id number] Void Residual by ultrasound Results AMB Urinalysis, Automated UA Leukoctes 0 Chilo/uL Last Edit by Marlin Jacinto on 01/28/23 13:38 UA Nitrite Negative Last Edit by Marlin Jacinto on 01/28/23 13:38 UA Urobilinogen 0.2 mg/dL Last Edit by Marlin Jacinto on 01/28/23 13:38 UA Protein 0 mg/dL Last Edit by Marlin Jacinto on 01/28/23 13:38 UA pH 6.0 Last Edit by Marlin Jacinto on 01/28/23 13:38 UA Blood 0 Nazario/uL Last Edit by Marlin Jacinto on 01/28/23 13:38 UA Specific [place] 1.020 Last Edit by Marlin Jacinto on 01/28/23 13:38 UA Ketone Negative Last Edit by Marlin Jacinto on 01/28/23 13:38 UA Bilirubin 0 mg/dL Last Edit by Marlin Jacinto on 01/28/23 13:38 UA Glucose 0 mg/dL Last Edit by Marlin Jacinto on 01/28/23 13:38 Results Reviewed Results Reviewed: Laboratory Last Values Urine pH (Auto) 6.0 01/28/23 13:36 Specific [place] (Auto) 1.020 01/28/23 13:36 Urine Protein (Auto) 0 mg/dL 01/28/23 13:36 Glucose (UA)(Auto) 0 mg/dL 01/28/23 13:36 Urine Ketones (Auto) Negative 01/28/23 13:36 Urine Blood (Auto) 0 Nazario/uL 01/28/23 13:36 Urine Nitrite (Auto) Negative 01/28/23 13:36 Urine Bilirubin (Auto) 0 mg/dL 01/28/23 13:36 Urine Urobilinogen (Auto) 0.2 mg/dL 01/28/23 13:36 Leukocyte Esterase (Auto) 0 Chilo/uL 01/28/23 13:36 Date of Service: 01/14/23 EXAMINATION: US RETROPERITONEAL COMPLETE (RENAL) FINDINGS: RIGHT KIDNEY: 9.2 x 5.4 x 4.6 cm (SAG x AP x TRV). The kidney is normal in size, contour, and echogenicity. Renal cortical thickness is normal. No calculi or focal parenchymal lesions. No hydronephrosis. LEFT KIDNEY: 10.0 x 5.8 x 3.9 cm (SAG x AP x TRV). The kidney is normal in size, contour, and echogenicity. Renal cortical thickness is normal. No calculi or focal parenchymal lesions. No hydronephrosis. BLADDER: Well distended and normal. Bilateral ureteral jets are demonstrated. Prevoid bladder volume is 223.2 mL. Postvoid bladder volume is 48 mL. US/US retroperitoneal comp IMPRESSION: Small postvoid bladder residual of 48 mL. Otherwise unremarkable renal ultrasound. Assessment & Plan Assessment & Plan (1) Recurrent UTI: Code(s): N39.0 - Urinary tract infection, site not specified (2) Clostridium difficile colitis: Comment: She should get suppressive treatment Code(s): A04.72 - Enterocolitis due to Clostridium difficile, not specified as recurrent Plan In office urinalysis results reviewed with the patient today; as noted above. Recent retroperitoneal ultrasound results reviewed with the patient today; as noted above. Discussed completion of suppression therapy as prescribed by Infectious Disease. Patient denies any bothersome urinary issues or concerns at this time. Continue Estrace cream as discussed and prescribed. Discussed UTI prevention with D mannose supplement, vitamin-C, increasing fluid intake, behavioral therapy with timed voiding, perineal hygiene and postcoital voiding, and management of constipation with stool softeners and increased fiber intake. PVR 0 mL. Follow-up in 3 months with PVR; or sooner with any issues, concerns, and or questions. Orders: Orders AMB Urinalysis Automated Today Z13.9 - Encounter for screening, unspecified AMB Post Void Residual by ultrasound Today N39.0 - Urinary tract infection, site not specified Patient Instructions: The patient had an opportunity to ask questions regarding the treatment plan. All questions were answered. Physical exam, labs, and imaging were discussed and reviewed in detail. As well as risks, benefits, and discussion of treatment choices. No major barriers to understanding were identified. The patient expr essed understanding and agreement with the above treatment plan. The patient was made aware they should contact our office by phone for worsening of their current condition, the appearance of new symptoms, or with any questions or concerns. Compliance is encouraged with any medications and follow up testing that is ordered. It is a privilege to be allowed the opportunity to participate in? your urological care.? Again, if you have any questions or concerns If you have any questions or concerns please do not hesitate to contact me. The office is [phone]. This note is constructed using voice recognition software. While every effort has been made to ensure accuracy assistant customer service manager errors may have been included. Yours sincerely, TRES Rivrea Coding Level of Care Code Est Pt Level 3 (09760) Diagnoses Recurrent UTI N39.0 Clostridium difficile colitis A04.72 CPT Codes Post Residual Void - PVR CPT Code: 68028-Kqjn Void Residual by ultrasound ([id number])
== END 2023-01-28 14:50 | disposition home or self-care (01) ==
LOC: HO.HUSH 12:27
PROVIDERS: PCP Internal Medicine; Visit Provider Nurse Practitioner Family
DX: N39.0 Urinary tract infection, site not specified (principal); A04.72 Enterocolitis due to Clostridium difficile, not specified as recurrent; Z13.9 Encounter for screening, unspecified
CPT/HCPCS: 99213

== ENCOUNTER → 2023-01-28 12:27 | Outpatient (BNVA) | payer MEDICARE, SELFPAY | PROVIDERS: PCP Internal Medicine; Visit Provider Nurse Practitioner Family | DX: N39.0 Urinary tract infection, site not specified (principal); A04.72 Enterocolitis due to Clostridium difficile, not specified as recurrent | CPT/HCPCS: 51798; 81003; 99212 ==

== ENCOUNTER 2023-02-21 11:21 | Outpatient (REF) | payer MEDICARE, SELFPAY ==
[2023-02-21 13:25] LABS: Appearance Urine Clear; Color Urine Yellow; Glucose Urine UA Negative (Negative); Leukocyte Esterase Urine Large (3+) (Negative); Nitrite Urine Negative (Negative); Specific Gravity - Urine <= 1.005 (1.005-1.025); UMIC TRIGGER UA YES; Urine Blood Negative (Negative); Urine Ketones Negative (Negative); Urine Protein Negative (Neg-Trace)
[2023-02-21 13:31] LABS: Bacteria Urine 1+ (None Seen); Hyaline Casts Urine 0-2 /LPF (0-2); RBC Urine 0-2 /HPF (0-2); WBC Urine >50 /HPF (0-5)
== END 2023-02-21 11:22 | disposition home or self-care (01) ==
LOC: HO.LAB 11:21
PROVIDERS: PCP Internal Medicine; Visit Provider Nurse Practitioner Family
DX: N39.0 Urinary tract infection, site not specified (principal)
CPT/HCPCS: 81001; 87086; 87088; 87186

== ENCOUNTER 2023-03-05 12:11 | Outpatient (REF) | payer MEDICARE, SELFPAY ==
[2023-03-05 12:22] LABS: MANUAL DIFF FLAG NO
[2023-03-05 12:28] LABS: Basophils Absolute Auto 0.1 X10*3/uL (0.0-0.2); Eosinophils Absolute Auto 0.2 X10*3/uL (0.0-0.4); Eosinophils Percent Auto 2.2 % (0-4); Imm Gran Abs Auto 0.01 X10*3/uL (0.00-0.03); Imm Gran Pct Auto 0.1 % (0.0-0.4); Lymphocytes Absolute Auto 2.4 X10*3/uL (1.2-4.9); Mean Corpuscular HGB Conc 33.3 g/dl (31.0-35.0); Mean Corpuscular Hemoglobin 29.2 pg (27.0-33.0); Mean Corpuscular Volume 87.7 fL (80.0-98.0); Mean Platelet Volume 9.7 fL (9.4-12.3); Monocytes Absolute Auto 0.6 X10*3/uL (0.1-1.2); Monocytes Percent Auto 8.4 % (2-11); Neutrophils Absolute Auto 3.9 x10*3/uL (2.0-8.3); Neutrophils Percent Auto 55.3 % (45-73); Platelet Count 255 X10*3/uL (160-400); Red Blood Count 4.79 X10*6/uL (4.20-5.50); Red Cell Distribution Width 12.9 % (11.0-16.0); White Blood Count 7.1 X10*3/uL (4.8-10.8)
[2023-03-05 12:57] LABS: Alanine Aminotransferase 22 U/L (0-31); Albumin Level 4.3 g/dL (3.5-5.0); Alkaline Phosphatase 74 U/L (39-117); Anion Gap 13 (12-20); Aspartate Amino Transferase 25 U/L (5-31); Bilirubin Total 0.8 mg/dL (0.0-1.0); Blood Urea Nitrogen 10 mg/dL (9-16); Calcium 9.8 mg/dL (8.4-10.2); Carbon Dioxide 27 mmol/L (22-29); Chloride 102 mmol/L (96-108); Cholesterol 167 mg/dL (<200); Estimated Glomerular Filt Rate > 60; Glucose Fasting 93 mg/dL (60-99); HDL Cholesterol 56 mg/dL (>40); LDL Cholesterol Calculated 86 mg/dL (<100); Potassium 3.8 mmol/L (3.3-5.1); Sodium 138 mmol/L (135-145); Total Protein 7.8 g/dL (6.5-8.0); Triglycerides 127 mg/dL (<150)
[2023-03-05 13:11] LABS: Free T4 (Free Thyroxine) 1.04 ng/dL (0.71-1.85); Thyroid Stimulating Hormone 2.12 uIU/mL (0.32-4.0)
== END 2023-03-05 12:12 | disposition home or self-care (01) ==
LOC: HO.LAB 12:11
PROVIDERS: PCP Internal Medicine; Visit Provider Internal Medicine
DX: E78.00 Pure hypercholesterolemia, unspecified (principal); E03.9 Hypothyroidism, unspecified; Z86.19 Personal history of other infectious and parasitic diseases
CPT/HCPCS: 36415; 80053; 80061; 84439; 84443; 85025

== ENCOUNTER 2023-03-17 13:59 | Outpatient (AMB) | payer MEDICARE, SELFPAY ==
--- NOTE | 2023-03-17 14:03 | A.OFFVIS_ITS ---
Intake Vital Signs 03/17/23 14:11 Height 5 ft 2 in Weight 133 lb BMI 24.3 BP 112/58 L Pulse 75 Pulse Source Pulse Oximeter Temp 97.4 F Temp Source Oral Pulse Oximetry (%) 97 Intake Visit Reasons: 2 mth. F/U Allergies No Known Allergies [No Known Allergies*] Allergy (Verified 03/17/23 14:16) HPI 2 mth. F/U HPI Details She reports no Cdiff. She has intermittent loose stools. She has not been on antibiotics. [facility] Medical History Clostridium difficile colitis High cholesterol Hypothyroid Surgical History History of bladder suspension procedure History of hysterectomy Alcohol intake: never Patient Tobacco Use Status: Never used Tobacco Review of Systems Const All systems reviewed & are unremarkable except as noted in HPI and below Physical Exam Vital Signs: Last Vital Signs Temp 97.4 F 03/17/23 14:11 Pulse 75 03/17/23 14:11 BP 112/58 L 03/17/23 14:11 Pulse Ox 97 03/17/23 14:11 BMI result Body Mass Index 24.3 Const General: cooperative Orientation/consciousness: patient oriented x3 HEENT Head: Yes normal to inspection Mouth: Normal oral and palatal mucosa present Eyes General: appearance normal, both eyes and all related structures Pupils: Equal, round and reactive pupils present Resp Effort & Inspection: normal respiratory effort Cardio Rate: regular rate Rhythm: regular rhythm GI Palpation (GI): Soft to palpation and nontender General: Yes no CVA tenderness Back/Spine/Pelvis Back: no CVA tenderness Skin General skin exam: no rashes or lesions noted Neuro General: patient oriented x3 Cranial nerves: Yes CN's II-XII intact bilaterally and Yes Equal, round and reactive pupils present Extrem General: Yes normal to inspection Psych Appearance: grossly normal Assessment & Plan Assessment & Plan (1) Clostridium difficile colitis: Comment: She should get suppressive treatment Code(s): A04.72 - Enterocolitis due to Clostridium difficile, not specified as recurrent Plan: She is not sure if taking Vancomycin. Will check. Coding Level of Care Code Est Pt Level 3 (32603) Diagnoses Clostridium difficile colitis A04.72
[2023-03-17 14:11] VITALS: BP 112/58; PULSE 75; TEMP 36.3; O2SAT 97; BMI 24.3
== END 2023-03-17 14:37 | disposition home or self-care (01) ==
PROVIDERS: PCP Internal Medicine; Visit Provider Internal Medicine
DX: A04.72 Enterocolitis due to Clostridium difficile, not specified as recurrent (principal)
CPT/HCPCS: 99213

== ENCOUNTER → 2023-03-17 13:59 | Outpatient (BNVA) | payer MEDICARE, SELFPAY | PROVIDERS: PCP Internal Medicine; Visit Provider Internal Medicine | DX: A04.72 Enterocolitis due to Clostridium difficile, not specified as recurrent (principal) | CPT/HCPCS: 99212 ==

== ENCOUNTER 2023-03-21 10:55 | Outpatient (REF) | payer MEDICARE, SELFPAY ==
[2023-03-21 13:22] LABS: Appearance Urine Turbid; Color Urine Yellow; Glucose Urine UA Negative (Negative); Leukocyte Esterase Urine Large (3+) (Negative); Nitrite Urine Negative (Negative); PH 5.5 (5.0-9.0); UMIC TRIGGER UA YES; Urine Blood Trace (Negative); Urine Ketones Negative (Negative); Urine Protein Negative (Neg-Trace)
[2023-03-21 13:24] LABS: Bacteria Urine 4+ (None Seen); Hyaline Casts Urine 0-2 /LPF (0-2); RBC Urine 0-2 /HPF (0-2); WBC Urine >50 /HPF (0-5)
== END 2023-03-21 10:56 | disposition home or self-care (01) ==
LOC: HO.10HDLNP 10:55
PROVIDERS: Visit Provider Nurse Practitioner Family
DX: N39.0 Urinary tract infection, site not specified (principal)
CPT/HCPCS: 81001; 87086; 87088; 87186

== ENCOUNTER → 2023-04-24 13:34 | Outpatient (BNVA) | payer MEDICARE, SELFPAY | PROVIDERS: PCP Internal Medicine; Visit Provider Nurse Practitioner Family ==

== ENCOUNTER → 2023-04-30 13:13 | Outpatient (BNVA) | payer MEDICARE, SELFPAY | PROVIDERS: PCP Internal Medicine; Visit Provider Nurse Practitioner Family | DX: R19.7 Diarrhea, unspecified (principal); N39.0 Urinary tract infection, site not specified | CPT/HCPCS: 51798; 81003; 99212 ==

== ENCOUNTER 2023-05-27 14:30 | Outpatient (AMB) | payer MEDICARE, SELFPAY ==
--- NOTE | 2023-05-27 14:31 | A.OFFVIS_ITS ---
Intake Intake Visit Reasons: cystoscopy Intake Note: Patient presents today for a CYSTOSCOPY CONSULT: Meds: Estradiol Allergies to Antibiotic: No Known Allergies Blood Thinner: Aspirin Lead Quality Technician Required: No Accompanied by: Self / Same As Patient Allergies No Known Allergies [No Known Allergies*] Allergy (Verified 04/30/23 22:22) HPI HPI Comments History of Present Illness Details Maryann is a pleasant 87 year old female patient of Dr. Gastelum. She has a past medical history of hypothyroidism and hypercholesteremia. She presents to the office today for follow-up of her recurrent urinary tract infections. She has problems with loose stools and is folowed by administrative medical director Dr. Branham. She is s/p hysterectomy and states she had bladder prolapse repair x 2, the last one about 7 years ago. Review of chart: Renal US -- 01/2023-- Kidneys WNL, bilateral kidneys with no calculi, lesions, or hydronephrosis noted. The bladder is well distended and normal. Bilateral ureteral jets are demonstrated. Pre void bladder volume is approximately 225 mL. Postvoid bladder volume is approximately 50 mL. Pt declined office cysto today, had questions, wants to resched office cystoscopy in 6 wks Discussed using baby wipes (front/back) post 's [facility] Medical History Clostridium difficile colitis High cholesterol Hypothyroid Surgical History History of bladder suspension procedure History of hysterectomy Social History Alcohol intake: never Patient Tobacco Use Status: Never used Tobacco Review of Systems Const All systems reviewed & are unremarkable except as noted in HPI and below Reports no additional complaints Eyes Reports no additional complaints ENT Reports no additional complaints Card Denies dyspnea Resp Denies cough and Denies dyspnea GI Reports no additional complaints Reports no additional complaints Musc Reports no additional complaints Skin/Breast Denies rash and Denies unusual bruising Neuro Reports no additional complaints Psych Reports no additional complaints Endo Reports no additional complaints Avila/Lymph Reports no additional complaints Aller/Immun Reports no additional complaints Assessment & Plan Assessment & Plan (1) Frequent loose stools: Code(s): R19.7 - Diarrhea, unspecified (2) Recurrent UTI: Code(s): N39.0 - Urinary tract infection, site not specified Plan office cystoscopy in 6 wks Discussed using baby wipes (front/back) post BM's Patient Instructions: The patient had an opportunity to ask questions regarding treatment plan. All questions were answered. Imaging, Laboratory studies and physical exam results were discussed and reviewed in detail. No major barriers to understanding were identified. The patient expressed understanding and agreement with the above treatment plan. The patient is aware they should contact our office by phone for worsening of their current condition or the appearance of new symptoms. Compliance is encouraged with any medications and followup testing that is ordered. It is a privilege to be allowed the opportunity to participate in the urologic care of your patient. If you have any questions or concerns regarding treatment for the above conditions please do not hesitate to contact me. The office telephone contact is [phone]. This note is constructed in part using voice recognition software. While every effort has been made to ensure accuracy pearl technician errors may have been included. Yours sincerely, Jamie Avalos MD Coding Level of Care Code Est Pt Level 3 (82808) Diagnoses Frequent loose stools R19.7 Recurrent UTI N39.0
--- OUTSIDE RECORDS SUMMARY | 2023-05-27 14:32 | XMS_ITS | Patient Health Record ---
Author Name Unknown Organization [facility] Address [address] [place] [address] Care Team Providers Care Orthotics Assistant Name Role Phone Sunil Gastelum MD Primary Care Provider Anthony Tapia Jr Unavailable ALLERGIES No Known Allergies REASON FOR REFERRAL No Information MEDICATIONS Medication SIG (Take, Route, Frequency, Duration) Notes Start Date End Date Status Aspirin Childrens 81 MG 1 tablet Orally Once a day for 30 day(s) Active Vitamin D (Cholecalciferol) 25 MCG (1000 UT) 1 capsule Orally Once a day for 30 day(s) Active metroNIDAZOLE 500 MG TAKE ONE TABLET BY MOUTH THREE TIMES A DAY FOR 14 DAYS Oral for 14 Active Rosuvastatin Calcium 10 MG Oral for 90 Active Levothyroxine Sodium 50 MCG TAKE ONE TAB LET BY MOUTH EVERY DAY Oral for 30 Active IMMUNIZATIONS Vaccine Route Administration Date Status Comme nts Influenza Unknown 02/21/2021 Administered Influenza Unknown 02/19/2022 Administered Influenza Unknown 03/11/2019 Refused SOCIAL HISTORY Tobacco Use: Social History Observation Description Date Details (start date - stop date) Former Smoker NA - NA Sex Assigned At : Social History Observation Description Sex Assigned At Unknown Tobacco Use/Smoking Question Answer Notes Patient is a former smoker When did you stop smoking? 38 years ago How long has it been since you last smoked? > 10 years Alcohol Screen Question Answer Notes Did you have a drink containing alcohol in the p ast year? No Points 0 Interpretation Negative PROBLEMS Problem Type ICD Code Onset Dates Problem Status W/U Status Risk SNOMED Code Notes Problem Abdominal bloating (R14.0) Active confirmed 025103832 Problem Abdominal gas pain (R14.1) Active confirmed 02195073 Problem Rectal discharge (R19.8) Active confirmed 817022477 Problem Clostridioides difficile infection (A49.8) Active confirmed 746219694 Encounters Encounter Location Date Provider Diagnosis [facility] [address] [place] [phone] 04/02/2023 Anthony Branham Jr [facility] [address] [place] [address] 01/08/2023 Anthony Branham Jr Clostridioides difficile infection A49.8 [facility] [address] [place] [address] 01/08/2023 Anthony Branham Jr ASSESSMENTS Encounter Date Diagnosis Assessment Notes Treatment Notes Treatment Clinical Notes 01/08/2023 Clostridioides difficile infection (ICD-10 - A49.8) Diarrhea - what to ask your health care provider - adult material was printed PLAN OF TREATMENT Next Appt Details Provider Name:Anthony carrillo Jr, 07/10/2023 01:55:00 PM, [address] [place] [address], [address], [place], [address], Insurance Providers Payer Name Payer Address Payer Phone Subscriber Number Group Number Insured Name Patient Relationship to Insured Coverage Start Date Coverage End Date MEDICARE OF [place] [address] [place] [address] [id number] RICKIE DURÁN Self - patient is the insured MED[employer] ATT[employer] CLAIMS [address] [place] [address] [phone] [id number] RICKIE DURÁN Self - patient is the insured MEDICAL (GENERAL) HISTORY Medical History History ICD Code hypothyroidism elevated cholesterol URINARY TRACT INFECTIONS Surgical History Surgery Date(Month/Year) bladder prolapse 2016 hysterectomy
== END 2023-05-27 15:15 | disposition home or self-care (01) ==
PROVIDERS: PCP Internal Medicine; Visit Provider Urology
DX: R19.7 Diarrhea, unspecified (principal); N39.0 Urinary tract infection, site not specified
CPT/HCPCS: 99213

== ENCOUNTER → 2023-05-27 14:30 | Outpatient (BNVA) | payer MEDICARE, SELFPAY | PROVIDERS: PCP Internal Medicine; Visit Provider Urology | DX: N39.0 Urinary tract infection, site not specified (principal); R19.7 Diarrhea, unspecified | CPT/HCPCS: 99212 ==

== ENCOUNTER 2023-07-08 14:06 | Outpatient (REF) | payer MEDICARE, SELFPAY ==
[2023-07-08 17:08] LABS: Anion Gap 11 (12-20); Blood Urea Nitrogen 14 mg/dL (9-16); Calcium 9.7 mg/dL (8.4-10.2); Carbon Dioxide 30 mmol/L (22-29); Chloride 103 mmol/L (96-108); Estimated Glomerular Filt Rate > 60; Glucose Random 61 mg/dL (60-115); Potassium 3.9 mmol/L (3.3-5.1); Sodium 140 mmol/L (135-145)
[2023-07-08 17:19] LABS: Free T4 (Free Thyroxine) 1.03 ng/dL (0.71-1.85); Thyroid Stimulating Hormone 1.31 uIU/mL (0.32-4.0)
== END 2023-07-08 14:07 | disposition home or self-care (01) ==
LOC: HO.LAB 14:06
PROVIDERS: PCP Internal Medicine; Visit Provider Internal Medicine
DX: E03.9 Hypothyroidism, unspecified (principal); E78.00 Pure hypercholesterolemia, unspecified
CPT/HCPCS: 36415; 80048; 84439; 84443

== ENCOUNTER 2023-08-11 14:24 | Outpatient (REF) | payer MEDICARE, SELFPAY ==
[2023-08-11 16:06] LABS: Appearance Urine Turbid; Color Urine Yellow; Glucose Urine UA Negative (Negative); Leukocyte Esterase Urine Moderate (2+) (Negative); Nitrite Urine Positive (Negative); PH 5.5 (5.0-9.0); Specific Gravity - Urine 1.015 (1.005-1.025); UMIC TRIGGER UA YES; Urine Blood Small (1+) (Negative); Urine Ketones Negative (Negative); Urine Protein 100 (2+) mg/dL (Neg-Trace)
[2023-08-11 16:24] LABS: Bacteria Urine 4+ (None Seen); Hyaline Casts Urine 0-2 /LPF (0-2); Squamous Epithelial Cell Urine 0-2 /HPF (0-2); WBC Urine >50 /HPF (0-5)
== END 2023-08-11 14:25 | disposition home or self-care (01) ==
LOC: HO.LAB 14:24
PROVIDERS: Visit Provider Nurse Practitioner Family
DX: N39.0 Urinary tract infection, site not specified (principal)
CPT/HCPCS: 81001; 87086; 87088; 87186

== ENCOUNTER 2023-08-13 13:45 | Outpatient (AMB) | payer MEDICARE, SELFPAY ==
--- NOTE | 2023-08-13 13:50 | A.OFFVIS_ITS ---
Vital Signs 08/13/23 14:01 Height 5 ft 1.5 in Weight 134 lb BMI 24.9 Pulse 68 Pulse Source Pulse Oximeter Pulse Oximetry (%) 95 Intake Visit Reasons: f/u 6 mth. Allergies No Known Allergies [No Known Allergies*] Allergy (Verified 08/13/23 14:02) HPI HPI f/u 6 mth.: Details: She has been on Bactrim for possible UTI. She is taking Vancomycin 125 mg po three times a week and told to take qid if on antibiotics. She has no complaints. COUNT INCLUDES THE [facility] Medical History Clostridium difficile colitis High cholesterol Hypothyroid Surgical History History of bladder suspension procedure History of hysterectomy Social History Alcohol intake: never Patient Tobacco Use Status: Never used Tobacco Review of Systems Const All systems reviewed & are unremarkable except as noted in HPI and below Physical Exam Vital Signs: Last Vital Signs Pulse 68 08/13/23 14:01 Pulse Ox 95 08/13/23 14:01 BMI result Body Mass Index 24.9 Const General: cooperative Orientation/consciousness: patient oriented x3 HEENT Head: Yes normal to inspection Mouth: Normal oral and palatal mucosa present Eyes General: appearance normal, both eyes and all related structures Pupils: Equal, round and reactive pupils present Resp Effort & Inspection: normal respiratory effort Cardio Rate: regular rate Rhythm: regular rhythm GI Palpation (GI): Soft to palpation and nontender General: Yes no CVA tenderness Back/Spine/Pelvis Back: no CVA tenderness Skin General skin exam: no rashes or lesions noted Neuro General: patient oriented x3 Cranial nerves: Yes CN's II-XII intact bilaterally and Yes Equal, round and reactive pupils present Extrem General: Yes normal to inspection Psych Appearance: grossly normal Assessment & Plan Assessment & Plan (1) Clostridium difficile colitis: Comment: She should conitinue suppressive treatment 125 M,W,Friday Code(s): A04.72 - Enterocolitis due to Clostridium difficile, not specified as recurrent Category: Medical Plan: as above Medications: New vancomycin 125 mg PO QID 120 caps 0RF 30 days
[2023-08-13 14:01] VITALS: PULSE 68; O2SAT 95; BMI 24.9
== END 2023-08-13 14:31 | disposition home or self-care (01) ==
LOC: HO.HID 13:45
PROVIDERS: PCP Internal Medicine; Visit Provider Internal Medicine
DX: A04.72 Enterocolitis due to Clostridium difficile, not specified as recurrent (principal)
CPT/HCPCS: 99213

== ENCOUNTER → 2023-08-13 13:45 | Outpatient (BNVA) | payer MEDICARE, SELFPAY | PROVIDERS: PCP Internal Medicine; Visit Provider Internal Medicine | DX: A04.72 Enterocolitis due to Clostridium difficile, not specified as recurrent (principal); Z79.2 Long term (current) use of antibiotics | CPT/HCPCS: 99212 ==

== ENCOUNTER 2023-09-05 14:21 | Outpatient (AMB) | payer MEDICARE, SELFPAY ==
[2023-09-05 14:26] VITALS: PULSE 74; O2SAT 91; BMI 24.7
--- NOTE | 2023-09-05 14:26 | A.OFFVIS_ITS ---
Vital Signs 09/05/23 14:26 Height 5 ft 2 in Weight 135 lb BMI 24.7 Pulse 74 Pulse Source Pulse Oximeter Pulse Oximetry (%) 91 L Intake Visit Reasons: f/u 1 vanda conway Allergies No Known Allergies [No Known Allergies*] Allergy (Verified 09/05/23 14:33) HPI HPI f/u 1 vanda conway: Details: She has run out of po Vancomycin preventive Cdiff. She has been taking qid always instead of tapering dose. She has no diarrhea. [facility] Medical History Clostridium difficile colitis High cholesterol Hypothyroid Surgical History History of bladder suspension procedure History of hysterectomy Social History Alcohol intake: never Patient Tobacco Use Status: Never used Tobacco Review of Systems Const All systems reviewed & are unremarkable except as noted in HPI and below Physical Exam Vital Signs: Last Vital Signs Pulse 74 09/05/23 14:26 Pulse Ox 91 L 09/05/23 14:26 BMI result Body Mass Index 24.7 Const General: cooperative HEENT Head: Yes normal to inspection Face and sinus: Yes normal facial exam Mouth: Normal oral and palatal mucosa present Teeth and gingiva: dentition normal Eyes General: appearance normal, both eyes and all related structures Pupils: Equal, round and reactive pupils present Resp Effort & Inspection: normal respiratory effort Cardio Rate: regular rate Rhythm: regular rhythm GI Palpation (GI): Soft to palpation and nontender General: Yes no CVA tenderness Back/Spine/Pelvis Back: no CVA tenderness Skin General skin exam: no rashes or lesions noted Neuro General: moves all extremities Cranial nerves: Yes Equal, round and reactive pupils present Extrem General: Yes normal to inspection Psych Appearance: grossly normal Assessment & Plan Assessment & Plan (1) Clostridium difficile colitis: Comment: She should conitinue suppressive treatment 125 M,W,Friday Code(s): A04.72 - Enterocolitis due to Clostridium difficile, not specified as recurrent Category: Medical Plan: See as scheduled make sure taking right. Will probably give Zinplava after stable three times a week. Medications: New vancomycin 125 mg PO .three times a week 30 days 13 caplets 5RF vancomycin 125 mg PO .three times a week 13 caplets 5RF 30 days vancomycin 125 mg PO .three times a week 30 days 13 caplets 5RF Coding Level of Care Code Est Pt Level 3 (14808) Diagnoses Clostridium difficile colitis A04.72
== END 2023-09-05 15:29 | disposition home or self-care (01) ==
LOC: HO.HID 14:21
PROVIDERS: PCP Internal Medicine; Visit Provider Internal Medicine
DX: A04.72 Enterocolitis due to Clostridium difficile, not specified as recurrent (principal)
CPT/HCPCS: 99213

== ENCOUNTER → 2023-09-05 14:21 | Outpatient (BNVA) | payer MEDICARE, SELFPAY | PROVIDERS: PCP Internal Medicine; Visit Provider Internal Medicine | DX: A04.72 Enterocolitis due to Clostridium difficile, not specified as recurrent (principal) | CPT/HCPCS: 99212 ==

== ENCOUNTER 2023-09-15 10:12 | Outpatient (AMB) | payer MEDICARE, SELFPAY ==
--- NOTE | 2023-09-15 11:11 | A.OFFVIS_ITS ---
Intake Visit Reasons: Cysto Intake Note: Patient presents today for a CYSTOSCOPY Procedure: Meds: None Allergies to Antibiotic: No Known Allergies Blood Thinner: None Urinalysis test clear for Cysto? YES Disposable Uro-G HD Cystoscope Cannula: Lot: [id number] Exp: 05/06/2026 Meter Readers Supervisor Required: No Accompanied by: Self / Same As Patient Allergies No Known Allergies [No Known Allergies*] Allergy (Verified 09/15/23 11:27) HPI Comments Details: 09/15/23--Cystoscopy findings: Mild bladder wall thickening, no suspicious bladder lesions visualized Pelvic exam narrow introitus status post colposcopy. Cystoscopy findings: Mild bladder wall thickening, no suspicious bladder lesions visualized. Follow-up in 4-5 months. Review of chart: 05/27/23--Maryann is a pleasant 87 year old female patient of Dr. Gastelum. She has a past medical history of hypothyroidism and hypercholesteremia. She presents to the office today for follow-up of her recurrent urinary tract infections. She has problems with loose stools and is folowed by dictaphone typist Dr. Branham. She is s/p hysterectomy and states she had bladder prolapse repair x 2, the last one about 7 years ago. Discussed using baby wipes (front/back) post BM's. Pt declined office cysto today, had questions, wants to resched, office cystoscopy in 6 wks. Renal US -- 01/2023-- Kidneys WNL, bilateral kidneys with no calculi, lesions, or hydronephrosis noted. The bladder is well distended and normal. Bilateral ureteral jets are demonstrated. Pre void bladder volume is approximately 225 mL. Postvoid bladder volume is approximately 50 mL. [facility] Medical History Clostridium difficile colitis High cholesterol Hypothyroid Surgical History History of bladder suspension procedure History of hysterectomy Social History Alcohol intake: never Patient Tobacco Use Status: Never used Tobacco Office Procedures Cystoscopy Consent Discussed risk and benefit or proposed procedure with the patient. Information consent for procedure given to the patient. Discussed technical aspects, risks, benefits and alternatives in full. Addressed all of the patient's questions and concerns regarding the procedure. The patient demonstrated knowledge and understanding. They wish to proceed with this procedure. Preparation The patient was prepped in the usual manner. A economic forecaster was present and in the room. Genitalia was prepped with betadine solution in a sterile manner. Lidocaine Jelly 2% was placed into the urethra and 16Fr flexible Olympus cystoscope was inserted into the meatus after adequate lubrication. Procedure Time out per protocol performed. Bladder Inspection Bladder Inspection: The bladder was inspected in its entirety with utilization retroflexion displaying: Tumor(s): no suspicious bladder lesions Trabeculation: Present-mild Mucosal Erthema: NA Orifices: normal shape and position Urethra: normal Cystoscopy findings: Mild bladder wall thickening, no suspicious bladder lesi ons visualized [id number] DISPOSABLE SCOPE URO-G FLEXIBLE SCOPE Procedure code (CPT) selection complete Office Meds lidocaine HCl 2 % mucosal jelly in applicator Performing Provider: Jamie Avalos MD [facility] Administered by: Dora Ag RN on 09/15/23 11:20 Dose Route Admin Location Dispensed Lot Number Expiration Date ND Facepiece Line Supervisor 10 mL intra-urethral 20 mL naproxen 500 mg tablet Performing Provider: Jamie Avalos MD Performing [facility] Administered by: Dora Ag RN on 09/15/23 11:20 Dose Route Admin Location Dispensed Lot Number Expiration Date NDC Facepiece Line Supervisor 500 mg PO 1 tab ciprofloxacin HCl 500 mg tablet Performing Provider: Jamie Avalos MD Performing [facility] Administered by: Dora Ag RN on 09/15/23 11:20 Dose Route Admin Location Dispensed Lot Number Expiration Date NDC Facepiece Line Supervisor 500 mg PO 1 tab Results AMB Urinalysis, Automated UA Leukoctes 0 Chilo/uL Last Edit by Rodriguez Hannah Елена on 09/15/23 11:27 UA Nitrite Negative Last Edit by Rodriguez Hannah [facility] on 09/15/23 11:27 UA Urobilinogen 0.2 mg/dL Last Edit by Rodriguez Hannah [facility] on 09/15/23 11:2 7 UA Protein 0 mg/dL Last Edit by Rodriguez Hannah [facility] on 09/15/23 11:27 UA pH 6.0 Last Edit by Rodriguez Hannah [facility] on 09/15/23 11:27 UA Blood 10 Nazario/uL Last Edit by Rodriguez Hannah [facility] on 09/15/23 11:27 UA Specific [place] 1.015 Last Edit by Rodriguez Hannah [facility] on 09/15/23 11: 27 UA Ketone Negative Last Edit by Rodrgiuez Hannah [facility] on 09/15/23 11:27 UA Bilirubin 0 mg/dL Last Edit by Rodriguez Hannah [facility] on 09/15/23 11:27 UA Glucose 0 mg/dL Last Edit by Rodriguez Hannah [facility] on 09/15/23 11:27 Results Reviewed Results Reviewed: Laboratory Last Values Urine pH (Auto) 6.0 09/15/23 11:11 Specific [place] (Auto) 1.015 09/15/23 11:11 Urine Protein (Auto) 0 mg/dL 09/15/23 11:11 Glucose (UA)(Auto) 0 mg/dL 09/15/23 11:11 Urine Ketones (Auto) Negative 09/15/23 11:11 Urine Blood (Auto) 10 Nazario/uL 09/15/23 11:11 Urine Nitrite (Auto) Negative 09/15/23 11:11 Urine Bilirubin (Auto) 0 mg/dL 09/15/23 11:11 Urine Urobilinogen (Auto) 0.2 mg/dL 09/15/23 11:11 Leukocyte Esterase (Auto) 0 Chilo/uL 09/15/23 11:11 Assessment & Plan Assessment & Plan (1) Frequent loose stools: Code(s): R19.7 - Diarrhea, unspecified Category: Medical (2) Recurrent UTI: Code(s): N39.0 - Urinary tract infection, site not specified Category: Medical Plan Cystoscopy performed today, history of recurrent UTIs, finding: bladder wall thickening no suspicious bladder lesions. Follow-up in 4-5 months Orders: Orders AMB Urinalysis Automated 09/15/23 Z13.9 - Encounter for screening, unspecified AMB Cystoscopy 09/15/23 N39.0 - Urinary tract infection, site not specified, R31.29 - Other microscopic hematuria Patient Instructions: The patient had an opportunity to ask questions regarding treatment plan. The patient expressed understanding and agreement with the above treatment plan. The patient is aware they should contact our office by phone for worsening of their current condition or the appearance of new symptoms. Compliance is encouraged with any medications and followup testing that is ordered. It is a privilege to be allowed the opportunity to participate in the urologic care of your patient. If you have any questions or concerns regarding treatment for the above conditions please do not hesitate to contact me. The office telephone contact is [phone]. This note is constructed in part using voice recognition software. While every effort has been made to ensure accuracy order dispatcher errors may have been included. Yours sincerely, Jamie Avalos MD Coding Level of Care Code Procedure Only Diagnoses Frequent loose stools R19.7 Recurrent UTI N39.0 CPT Codes Cystoscopy - CPT: 94984-[id number] ([id number])
== END 2023-09-15 12:27 | disposition home or self-care (01) ==
PROVIDERS: PCP Internal Medicine; Visit Provider Urology
DX: N39.0 Urinary tract infection, site not specified (principal); R31.29 Other microscopic hematuria; Z13.9 Encounter for screening, unspecified
CPT/HCPCS: 52000

== ENCOUNTER → 2023-09-15 10:12 | Outpatient (BNVA) | payer MEDICARE, SELFPAY | PROVIDERS: PCP Internal Medicine; Visit Provider Urology | DX: R31.29 Other microscopic hematuria (principal); N39.0 Urinary tract infection, site not specified; R19.7 Diarrhea, unspecified | CPT/HCPCS: 52000; 81003 ==

== ENCOUNTER 2023-10-06 14:45 | Outpatient (REF) | payer MEDICARE, SELFPAY ==
[2023-10-06 16:05] LABS: Appearance Urine Turbid; Color Urine Yellow; Glucose Urine UA Negative (Negative); Leukocyte Esterase Urine Large (3+) (Negative); Nitrite Urine Negative (Negative); Specific Gravity - Urine 1.015 (1.005-1.025); UMIC TRIGGER UA YES; Urine Blood Moderate (2+) (Negative); Urine Ketones Negative (Negative); Urine Protein 100 (2+) mg/dL (Neg-Trace)
[2023-10-06 16:07] LABS: Bacteria Urine 1+ (None Seen); Hyaline Casts Urine 0-2 /LPF (0-2); WBC Urine >50 /HPF (0-5)
== END 2023-10-06 14:46 | disposition home or self-care (01) ==
LOC: HO.LAB 14:45
PROVIDERS: PCP Internal Medicine; Visit Provider Urology
DX: N39.0 Urinary tract infection, site not specified (principal)
CPT/HCPCS: 81001; 87086; 87088; 87186

== ENCOUNTER 2023-10-27 13:39 | Outpatient (REF) | payer MEDICARE, SELFPAY ==
[2023-10-27 14:37] LABS: Appearance Urine Clear; Color Urine Yellow; Glucose Urine UA Negative (Negative); Leukocyte Esterase Urine Trace (Negative); Nitrite Urine Negative (Negative); Specific Gravity - Urine <= 1.005 (1.005-1.025); UMIC TRIGGER UA YES; Urine Blood Negative (Negative); Urine Ketones Negative (Negative); Urine Protein Negative (Neg-Trace)
[2023-10-27 14:43] LABS: Bacteria Urine None Seen (None Seen); Hyaline Casts Urine 0-2 /LPF (0-2); RBC Urine 0-2 /HPF (0-2)
== END 2023-10-27 13:40 | disposition home or self-care (01) ==
LOC: HO.LAB 13:39
PROVIDERS: PCP Internal Medicine; Visit Provider Urology
DX: N39.0 Urinary tract infection, site not specified (principal)
CPT/HCPCS: 81001; 87086

== ENCOUNTER 2023-11-11 13:45 | Outpatient (REF) | payer MEDICARE, SELFPAY ==
[2023-11-11 14:48] LABS: Appearance Urine Turbid; Color Urine Yellow; Glucose Urine UA Negative (Negative); Leukocyte Esterase Urine Large (3+) (Negative); Nitrite Urine Negative (Negative); UMIC TRIGGER UACC YES; Urine Blood Trace (Negative); Urine Ketones Negative (Negative); Urine Protein Trace mg/dL (Neg-Trace)
[2023-11-11 14:50] LABS: Bacteria Urine 4+ (None Seen); Hyaline Casts Urine 0-2 /LPF (0-2); RBC Urine 0-2 /HPF (0-2); UACC Culture Trigger YES; WBC Urine >50 /HPF (0-5)
== END 2023-11-11 13:46 | disposition home or self-care (01) ==
LOC: HO.LAB 13:45
PROVIDERS: PCP Internal Medicine; Visit Provider Internal Medicine
DX: R30.0 Dysuria (principal)
CPT/HCPCS: 81001; 87086; 87088; 87186

== ENCOUNTER 2023-11-19 11:19 | Outpatient (REF) | payer MEDICARE, SELFPAY ==
[2023-11-19 17:28] LABS: Appearance Urine Turbid; Color Urine Dark Yellow; Glucose Urine UA Negative (Negative); Leukocyte Esterase Urine Large (3+) (Negative); Nitrite Urine Negative (Negative); PH 5.5 (5.0-9.0); UMIC TRIGGER UA YES; Urine Blood Moderate (2+) (Negative); Urine Ketones Trace mg/dL (Negative); Urine Protein 300 (3+) mg/dL (Neg-Trace)
[2023-11-19 17:51] LABS: Bacteria Urine 4+ (None Seen); RBC Urine >20 /HPF (0-2); WBC Urine >50 /HPF (0-5)
== END 2023-11-19 11:20 | disposition home or self-care (01) ==
LOC: HO.LAB 11:19
PROVIDERS: PCP Internal Medicine; Visit Provider Urology
DX: N39.0 Urinary tract infection, site not specified (principal)
CPT/HCPCS: 81001; 87086; 87088; 87186

== ENCOUNTER 2023-12-10 14:12 | Outpatient (AMB) | payer MEDICARE, SELFPAY ==
--- NOTE | 2023-12-10 14:13 | MHC.OFFVIS ---
Vital Signs 12/10/23 14:18 Height 5 ft 2 in Weight 136 lb BMI 24.9 Pulse 76 Pulse Source Pulse Oximeter Pulse Oximetry (%) 93 Oxygen Delivery Method Room Air Intake Visit Reasons: follow up vancomycin Allergies No Known Allergies [No Known Allergies*] Allergy (Verified 12/10/23 14:19) HPI HPI follow up vancomycin: Details: She reports no diarrhea. She reports taking Vancomycin 125 mg po every ,,Friday PFS Medical History Clostridium difficile colitis High cholesterol Hypothyroid Surgical History History of bladder suspension procedure History of hysterectomy Social History Alcohol intake: never Patient Tobacco Use Status: Never used Tobacco Review of Systems Const All systems reviewed & are unremarkable except as noted in HPI and below Physical Exam Vital Signs: Last Vital Signs Pulse 76 12/10/23 14:18 Pulse Ox 93 12/10/23 14:18 Oxygen Delivery Method Room Air 12/10/23 14:18 BMI result Body Mass Index 24.9 Const General: cooperative Orientation/consciousness: patient oriented x3 HEENT Head: Yes normal to inspection Mouth: Normal oral and palatal mucosa present Eyes General: appearance normal, both eyes and all related structures Pupils: Equal, round and reactive pupils present Resp Effort & Inspection: normal respiratory effort Cardio Rate: regular rate Rhythm: regular rhythm GI Palpation (GI): Soft to palpation and nontender General: Yes no CVA tenderness Back/Spine/Pelvis Back: no CVA tenderness Skin General skin exam: no rashes or lesions noted Neuro General: patient oriented x3 Cranial nerves: Yes CN's II-XII intact bilaterally and Yes Equal, round and reactive pupils present Extrem General: Yes normal to inspection Psych Appearance: grossly normal Assessment & Plan Assessment & Plan (1) Clostridium difficile colitis: Comment: She should conitinue suppressive treatment 125 M,,Friday Code(s): A04.72 - Enterocolitis due to Clostridium difficile, not specified as recurrent Category: Medical Plan: na Medications: Refilled vancomycin 125 mg PO .three times a week 13 caplets 5RF 30 days vancomycin 125 mg PO .three times a week 13 caplets 5RF 30 days Coding Level of Care Code Est Pt Level 3 (44076) Diagnoses Clostridium difficile colitis A04.72
[2023-12-10 14:18] VITALS: PULSE 76; O2SAT 93; BMI 24.9
== END 2023-12-10 14:43 | disposition home or self-care (01) ==
LOC: HO.HID 14:12
PROVIDERS: PCP Internal Medicine; Visit Provider Internal Medicine
DX: A04.72 Enterocolitis due to Clostridium difficile, not specified as recurrent (principal)
CPT/HCPCS: 99213

== ENCOUNTER → 2023-12-10 14:12 | Outpatient (BNVA) | payer MEDICARE, SELFPAY | PROVIDERS: PCP Internal Medicine; Visit Provider Internal Medicine | DX: A04.72 Enterocolitis due to Clostridium difficile, not specified as recurrent (principal) | CPT/HCPCS: 99212 ==

== ENCOUNTER 2023-12-22 13:05 | Outpatient (REF) | payer MEDICARE, SELFPAY ==
[2023-12-22 14:05] LABS: Appearance Urine Turbid; Color Urine Yellow; Glucose Urine UA Negative (Negative); Leukocyte Esterase Urine Large (3+) (Negative); Nitrite Urine Negative (Negative); PH 5.5 (5.0-9.0); UMIC TRIGGER UA YES; Urine Blood Small (1+) (Negative); Urine Ketones Negative (Negative); Urine Protein Trace mg/dL (Neg-Trace)
[2023-12-22 14:26] LABS: Bacteria Urine 4+ (None Seen); Hyaline Casts Urine 0-2 /LPF (0-2); RBC Urine 0-2 /HPF (0-2); Squamous Epithelial Cell Urine 0-2 /HPF (0-2); WBC Urine >50 /HPF (0-5)
== END 2023-12-22 13:06 | disposition home or self-care (01) ==
LOC: HO.LAB 13:05
PROVIDERS: PCP Internal Medicine; Visit Provider Urology
DX: N39.0 Urinary tract infection, site not specified (principal)
CPT/HCPCS: 81001; 87086; 87088; 87186

== ENCOUNTER 2024-02-12 13:02 | Outpatient (AMB) | payer MEDICARE, SELFPAY ==
--- NOTE | 2024-02-12 13:06 | A.OFFVIS_ITS ---
Intake Visit Reasons: 5m follow up Intake Note: Patient is present for 5m f/u Urology Medication:macrobid, vancomycin, nitrofurantoin Antibiotic Allergy:none Blood Thinner:none Atmospheric Sciences Professor Required: No Allergies No Known Allergies [No Known Allergies*] Allergy (Verified 02/12/24 13:08) HPI Comments Details: 02/12/24--Maryann is an 88 year old female patient who presents to the office today for follow-up of her recurrent urinary tract infections. She has comorbidity of bowel disorder with symptoms of loose stools, h/o C. Diff followed by GI. H/O hyst and prolapse surgery x 2. UA today is within normal limits. Review of chart: 09/15/23--Cystoscopy findings: Mild bladder wall thickening, no suspicious bladder lesions visualized Pelvic exam narrow introitus status post colposcopy. Cystoscopy findings: Mild bladder wall thickening, no suspicious bladder lesions visualized. Follow-up in 4-5 months. 05/27/23--Maryann is a pleasant 87 year old female patient of Dr. Gastelum. She has a past medical history of hypothyroidism and hypercholesteremia. She presents to the office today for follow-up of her recurrent urinary tract infections. She has problems with loose stools and is folowed by corporate security officer Dr. Branham. She is s/p hysterectomy and states she had bladder prolapse repair x 2, the last one about 7 years ago. Discussed using baby wipes (front/back) post BM's. Pt declined office cysto today, had questions, wants to resched, office cystoscopy in 6 wks. Renal US -- 01/2023-- Kidneys WNL, bilateral kidneys with no calculi, lesions, or hydronephrosis noted. The bladder is well distended and normal. Bilateral ureteral jets are demonstrated. Pre void bladder volume is approximately 225 mL. Postvoid bladder volume is approximately 50 mL. [facility] Medical History Clostridium difficile colitis High cholesterol Hypothyroid Surgical History History of bladder suspension procedure History of hysterectomy Social History Alcohol intake: never Patient Tobacco Use Status: Never used Tobacco Review of Systems Const All systems reviewed & are unremarkable except as noted in HPI and below Reports no additional complaints Eyes Reports no additional complaints ENT Reports no additional complaints Card Reports no additional complaints Resp Reports no additional complaints GI Reports no additional complaints Reports as per HPI Musc Reports no additional complaints Skin/Breast Reports system reviewed and no additional complaints, except as documented Neuro Reports no additional complaints Psych Reports no additional complaints Endo Reports no additional complaints Avila/Lymph Reports no additional complaints Aller/Immun Reports no additional complaints Results AMB Urinalysis, Automated UA Leukoctes 0 Chilo/uL Last Edit by VIKRAM Rocha on 02/12/24 13:24 UA Nitrite Negative Last Edit by Shwetha Sorensen CCM on 02/12/24 13:24 UA Urobilinogen 0.2 mg/dL Last Edit by Shwetha Sorensen [facility] on 02/12/24 13:2 4 UA Protein 0 mg/dL Last Edit by Shwetha Sorensen CCM on 02/12/24 13:24 UA pH 5.5 Last Edit by Shwetha Sorensen [facility] on 02/12/24 13:24 UA Blood 0 Nazario/uL Last Edit by Shwetha Sorensen [facility] on 02/12/24 13:24 UA Specific [place] 1.015 Last Edit by Shwetha Sorensen CCM on 02/12/24 13: 24 UA Ketone Negative Last Edit by Shwetha Sorensen CCM on 02/12/24 13:24 UA Bilirubin 0 mg/dL Last Edit by Shwetha Sorensen [facility] on 02/12/24 13:24 UA Glucose 0 mg/dL Last Edit by Shwetha Sorensen [facility] on 02/12/24 13:24 Results Reviewed Results Reviewed: Laboratory Last Values Urine pH (Auto) 5.5 02/12/24 13:23 Specific [place] (Auto) 1.015 02/12/24 13:23 Urine Protein (Auto) 0 mg/dL 02/12/24 13:23 Glucose (UA)(Auto) 0 mg/dL 02/12/24 13:23 Urine Ketones (Auto) Negative 02/12/24 13:23 Urine Blood (Auto) 0 Nazario/uL 02/12/24 13:23 Urine Nitrite (Auto) Negative 02/12/24 13:23 Urine Bilirubin (Auto) 0 mg/dL 02/12/24 13:23 Urine Urobilinogen (Auto) 0.2 mg/dL 02/12/24 13:23 Leukocyte Esterase (Auto) 0 Chilo/uL 02/12/24 13:23 Date of Service: 01/14/23 EXAMINATION: US RETROPERITONEAL COMPLETE (RENAL) FINDINGS: RIGHT KIDNEY: 9.2 x 5.4 x 4.6 cm (SAG x AP x TRV). The kidney is normal in size, contour, and echogenicity. Renal cortical thickness is normal. No calculi or focal parenchymal lesions. No hydronephrosis. LEFT KIDNEY: 10.0 x 5.8 x 3.9 cm (SAG x AP x TRV). The kidney is normal in size, contour, and echogenicity. Renal cortical thickness is normal. No calculi or focal parenchymal lesions. No hydronephrosis. BLADDER: Well distended and normal. Bilateral ureteral jets are demonstrated. Prevoid bladder volume is 223.2 mL. Postvoid bladder volume is 48 mL. IMPRESSION: Small postvoid bladder residual of 48 mL. Otherwise unremarkable renal ultrasound. Assessment & Plan Assessment & Plan (1) Frequent loose stools: Code(s): R19.7 - Diarrhea, unspecified Category: Medical (2) Recurrent UTI: Code(s): N39.0 - Urinary tract infection, site not specified Category: Medical Plan Recurrent UTI's cont to monitor Orders: Orders AMB Urinalysis Automated 02/12/24 Z13.9 - Encounter for screening, unspecified Patient Instructions: The patient had an opportunity to ask questions regarding treatment plan. The patient expressed understanding and agreement with the above treatment plan. The patient is aware they should contact our office by phone for worsening of their current condition or the appearance of new symptoms. Compliance is encouraged with any medications and followup testing that is ordered. It is a privilege to be allowed the opportunity to participate in the urologic care of your patient. If you have any questions or concerns regarding treatment for the above conditions please do not hesitate to contact me. The office telephone contact is [phone]. This note is constructed in part using voice recognition software. While every effort has been made to ensure accuracy clerk cashier errors may have been included. Yours sincerely, Jamie Avalos MD Coding Level of Care Code Est Pt Level 3 (90220) Diagnoses Frequent loose stools R19.7 Recurrent UTI N39.0
== END 2024-02-12 13:43 | disposition home or self-care (01) ==
PROVIDERS: PCP Internal Medicine; Visit Provider Urology
DX: R19.7 Diarrhea, unspecified (principal); N39.0 Urinary tract infection, site not specified
CPT/HCPCS: 99213

== ENCOUNTER → 2024-02-12 13:02 | Outpatient (BNVA) | payer MEDICARE, SELFPAY | PROVIDERS: PCP Internal Medicine; Visit Provider Urology | DX: R19.7 Diarrhea, unspecified (principal); K63.9 Disease of intestine, unspecified; Z87.440 Personal history of urinary (tract) infections | CPT/HCPCS: 81003; 99212 ==

== ENCOUNTER 2024-03-24 14:02 | Outpatient (REF) | payer MEDICARE, SELFPAY ==
[2024-03-24 14:59] LABS: Appearance Urine Turbid; Color Urine Yellow; Glucose Urine UA Negative (Negative); Leukocyte Esterase Urine Large (3+) (Negative); Nitrite Urine Negative (Negative); PH 5.5 (5.0-9.0); UMIC TRIGGER UA YES; Urine Blood Trace (Negative); Urine Ketones Negative (Negative); Urine Protein Negative (Neg-Trace)
[2024-03-24 15:05] LABS: Bacteria Urine 4+ (None Seen); Hyaline Casts Urine 0-2 /LPF (0-2); RBC Urine 0-2 /HPF (0-2); WBC Urine >50 /HPF (0-5)
== END 2024-03-24 14:03 | disposition home or self-care (01) ==
LOC: HO.LAB 14:02
PROVIDERS: PCP Internal Medicine; Visit Provider Urology
DX: N39.0 Urinary tract infection, site not specified (principal); B96.20 Unspecified Escherichia coli [E. coli] as the cause of diseases classified elsewhere
CPT/HCPCS: 81001; 87086; 87088; 87186

== ENCOUNTER 2024-04-07 13:13 | Outpatient (AMB) | payer MEDICARE, SELFPAY ==
[2024-04-07 13:21] VITALS: PULSE 64; O2SAT 95; BMI 25.1
--- NOTE | 2024-04-07 13:21 | MHC.OFFVIS ---
Vital Signs 04/07/24 13:21 Height 5 ft 2 in Weight 137 lb BMI 25.1 Pulse 64 Pulse Source Pulse Oximeter Pulse Oximetry (%) 95 Oxygen Delivery Method Room Air Intake Visit Reasons: follow up 4 month vanco Allergies No Known Allergies [No Known Allergies*] Allergy (Verified 04/07/24 13:26) HPI HPI follow up 4 month vanco: Details: She is somewhat disoriented and talking randomly She denies diarrhea and reports taking medication. [facility] Medical History Clostridium difficile colitis High cholesterol Hypothyroid Surgical History History of bladder suspension procedure History of hysterectomy Social History Alcohol intake: never Patient Tobacco Use Status: Never used Tobacco Review of Systems Const All systems reviewed & are unremarkable except as noted in HPI and below Physical Exam Vital Signs: Last Vital Signs Pulse 64 04/07/24 13:21 Pulse Ox 95 04/07/24 13:21 Oxygen Delivery Method Room Air 04/07/24 13:21 BMI result Body Mass Index 25.1 Const General: cooperative Orientation/consciousness: patient oriented x3 HEENT Head: Yes normal to inspection Mouth: Normal oral and palatal mucosa present Eyes General: appearance normal, both eyes and all related structures Pupils: Equal, round and reactive pupils present Resp Effort & Inspection: normal respiratory effort Cardio Rate: regular rate Rhythm: regular rhythm GI Palpation (GI): Soft to palpation and nontender General: Yes no CVA tenderness Back/Spine/Pelvis Back: no CVA tenderness Skin General skin exam: no rashes or lesions noted Neuro General: patient oriented x3 Cranial nerves: Yes CN's II-XII intact bilaterally and Yes Equal, round and reactive pupils present Extrem General: Yes normal to inspection Psych Appearance: grossly normal Assessment & Plan Assessment & Plan (1) Clostridium difficile colitis: Comment: She should conitinue suppressive treatment 125 M,W,Friday Code(s): A04.72 - Enterocolitis due to Clostridium difficile, not specified as recurrent Category: Medical Plan: See in six months Medications: Refilled vancomycin 125 mg PO .three times a week 13 caplets 5RF 30 days Coding Level of Care Code Est Pt Level 3 (35731) Diagnoses Clostridium difficile colitis A04.72
== END 2024-04-07 14:17 | disposition home or self-care (01) ==
LOC: HO.HID 13:13
PROVIDERS: PCP Internal Medicine; Visit Provider Internal Medicine
DX: A04.72 Enterocolitis due to Clostridium difficile, not specified as recurrent (principal)
CPT/HCPCS: 99213

== ENCOUNTER → 2024-04-07 13:13 | Outpatient (BNVA) | payer MEDICARE, SELFPAY | PROVIDERS: PCP Internal Medicine; Visit Provider Internal Medicine | DX: A04.72 Enterocolitis due to Clostridium difficile, not specified as recurrent (principal) | CPT/HCPCS: 99212 ==

== ENCOUNTER 2024-06-29 08:56 | Emergency (ER) | payer MEDICARE, SELFPAY ==
--- NOTE | ~2024-06-29 | XR_ITS ---
EXAMINATION: XR HIP, RIGHT CLINICAL INFORMATION: right pelvic pain COMPARISON: None available. TECHNIQUE: Two views of the right hip. AP pelvis. FINDINGS: Sclerosis along the articular surface of the right coxofemoral joint with asymmetric joint space narrowing. No acute cortical disruption or gross malalignment. No lytic or blastic lesions. Spondylosis L4-5 and L5-S1. Vascular calcifications. XR/XR hip RT w PEL1V IMPRESSION: Osteoarthrosis, mild to moderate, right coxofemoral joint. No acute fracture or dislocation. Electronically signed by: Honorio Falcon MD 06/29/2024 01:39 PM [facility]
[2024-06-29 09:15] VITALS: BP 175/83; PULSE 73; RESP 16; TEMP 36; O2SAT 93; BMI 24.6
--- NOTE | 2024-06-29 12:43 | ED_ITS ---
HPI - Extremity Problem General Chief complaint: Extremity Problem Stated complaint: discomfort in groin area Time Seen by Provider: 06/29/24 12:22 Source: patient and RN notes reviewed Mode of arrival: ambulatory Limitations: no limitations History of Present Illness ED Provider: Lani Frausto PA-C HPI Narrative: This is a 88-year-old female who presents emergency department with complaints of right-sided groin pain for the last month and a half. Patient reports that she believes that while she was getting up from her recliner she may have stretched her right inner groin. She states that the pain waxes and wanes in severity. She states that the pain worsens standing for prolonged periods of time as well as walking. Pain slightly increased with palpation however states that it hurts more with ambulation and with movement. She states that she was overall feeling well. She denies any chest pain, shortness of breath, decreased sensation to her lower leg. No numbness, tingling or weakness. No urinary or bowel retention or incontinence. No saddle anesthesia. No other complaints or concerns at this time. MD Complaint: extremity pain Onset (ago): day(s) Pain Consistency: constant Location: left and lower extremity Quality: aching Radiation: none Relieving factors: rest Exacerbating factors: range of motion, weight bearing, walking, exertion and palpation Associated symptoms: denies other symptoms Related Data Home Medications ?Medication ?Instructions ?Recorded ?Confirmed levothyroxine 50 mcg tablet 50 mcg PO DAILY 11/21/20 Previous Rx's ?Medication ?Instructions ?Recorded vancomycin 125 mg capsule 125 mg PO QID 30 days #120 caps 01/15/23 vancomycin 125 mg capsule 125 mg PO QID 30 days #120 caps 08/13/23 fosfomycin tromethamine 3 gram 1 packet PO .weekly UTI 08/14/23 oral packet suppression 12 weeks #12 ea fosfomycin tromethamine 3 gram 3 g PO Q3D UTI 9 days #3 ea 08/14/23 oral packet vancomycin 125 mg capsule 125 mg PO TID 14 days #42 caps 11/21/23 fosfomycin tromethamine 3 gram 3 g PO Q3D 9 days #3 ea 11/28/23 oral packet nitrofurantoin macrocrystal 50 mg 50 mg PO BEDTIME 30 days #30 caps 12/25/23 capsule nitrofurantoin 100 mg PO BID 7 days #14 caps 12/25/23 monohydrate/macrocrystals 100 mg capsule (Macrobid) phenazopyridine 100 mg tablet 100 mg PO TID PRN pain 5 days #15 03/26/24 (Pyridium) tabs nitrofurantoin 100 mg PO BID 5 days #10 caps 03/29/24 monohydrate/macrocrystals 100 mg capsule (Macrobid) vancomycin 125 mg capsule 125 mg PO .three times a week 30 04/07/24 days #13 caplets Allergies Allergy/AdvReac Type Severity Reaction Status Date / Time No Known Allergies Allergy Verified 06/29/24 09:19 [No Known Allergies*] Review of Systems Review of Systems: Yes all other systems are reviewed and are negative Constitutional: Constitutional: Reports as per [facility] Past Medical History Medical History Clostridium difficile colitis High cholesterol Hypothyroid Surgical History History of bladder suspension procedure History of hysterectomy Social History Social History Alcohol intake: never Patient Tobacco Use Status: Never used Tobacco Physical Exam Vital Signs: Vital Signs: Last Vital Signs Temp 96.8 F 06/29/24 14:21 Pulse 73 06/29/24 14:21 Resp 16 06/29/24 14:21 BP 175/83 H 06/29/24 14:21 Pulse Ox 93 06/29/24 14:21 O2 Del Method Room Air 06/29/24 14:21 BMI result Body Mass Index 24.6 Const: General: cooperative, comfortable and no acute distress Orientation/consciousness: patient oriented x3 Limitations: no limitations HEENT: Head: Yes normal to inspection, Yes normocephalic and Yes atraumatic Ears: hearing grossly normal bilaterally General nose exam: Normal external nose present Face and sinus: Yes normal facial exam Mouth: Normal oral and palatal mucosa present, oropharynx normal and moist mucous membranes Throat: Yes posterior oropharynx normal Eyes: General: appearance normal, both eyes and all related structures Eyelids: Yes eyelids normal Conjunctivae: conjunctivae normal Sclerae: sclerae normal Pupils: Equal, round and reactive pupils present EOM: EOMs intact bilaterally Neck: Neck: Yes normal visual inspection, Yes full ROM and Yes no lymphadenopathy Lymphatic: no lymphadenopathy noted Chest: Chest palpation & inspection: normal inspection of the chest Resp: Effort & Inspection: normal respiratory effort and able to speak in complete sentences Auscultation: clear to auscultation bilaterally, no crackles, no rales, no rhonchi and no wheezes Cardio: Rate: regular rate Rhythm: regular rhythm Heart sounds: S1 normal heart sound present and S2 normal heart sound present GI: Other: Abdomen is soft, nontender, nondistended Inspection: Yes normal to inspection Skin: General skin exam: no rashes or lesions noted Trauma: no lacerations or abrasions Wounds: no wounds Neuro: General: patient oriented x3 and moves all extremities Cranial nerves: Yes Equal, round and reactive pupils present Extrem: Other: Right leg is well perfused, with no overlying skin changes or warmth. No pitting edema noted. Patient has tenderness palpation along the right anterior hip, as well as right hip flexor. No palpable deformities or at normality. Strong femoral pulse. Compartments are soft. Full ROM. General: Yes normal to inspection Right upper extremity: normal to inspection Left upper extremity: normal to inspection Right lower extremity: normal to inspection Left lower extremity: normal to inspection Course Reevaluation(s) Reevaluation #1: X-ray revealing osteoarthrosis, discussed with patient. Given referral to Orthopedics. Given strict return precautions. Advised to take Tylenol as needed for pain. She understands and agrees with plan. Patient stable for discharge. Medical Decision Making Medical Decision Making MDM Narrative: This is an 88-year-old female who presents emergency department for evaluation of right-sided groin pain. On arrival, vital signs reveal patient is mildly hypertensive at 175/83, all other vital signs within normal limits. Right leg is well perfused, she was ambulatory with steady gait. Pain worsens with ambulation. No palpable abnormalities, no hernia appreciated. No overlying skin changes. Differential diagnoses include hernia, fracture-unlikely, osteoarthritis, bony lesion. Will obtain x-rays to rule out any bony abnormalities. Differential Diagnosis Differential Diagnoses: The differential diagnosis associated with the presentation includes See above Radiology Impression Discussion of test interpretation with radiology: I have reviewed the radiologist's reading. Radiologist Impression: [address] [address] XRay Report Signed Patient: Maryann Cannon MR#: [id number] : 1935 Acct:[id number] Age/Sex: 88 / F ADM Date: 06/29/24 Loc: HO.ED Attending Dr: Ordering Physician: Lani Frausto Date of Service: 06/29/24 Procedure(s): XR hip RT w PEL1V Accession Number(s): [id number] cc: Sunil Gastelum MD; Lani Frausto~ EXAMINATION: XR HIP, RIGHT CLINICAL INFORMATION: right pelvic pain COMPARISON: None available. TECHNIQUE: Two views of the right hip. AP pelvis. FINDINGS: Sclerosis along the articular surface of the right coxofemoral joint with asymmetric joint space narrowing. No acute cortical disruption or gross malalignment. No lytic or blastic lesions. Spondylosis L4-5 and L5-S1. Vascular calcifications. XR/XR hip RT w PEL1V IMPRESSION: Osteoarthrosis, mild to moderate, right coxofemoral joint. No acute fracture or dislocation. Electronically signed by: Honorio Falcon MD 06/29/2024 01:39 PM [facility] Dictated By: Honorio De Leon MD Discharge Plan Discharge Clinical Impression: Rt groin pain, Osteoarthrosis Patient Disposition: Home, Self-Care Instructions: Osteoarthritis (ED), Pelvic Pain (ED), Warm Compress or Soak (ED) Additional Instructions: You were seen in the emergency department due to right groin pain. Your x-ray shows [id number]-[id number] osteoarthrosis in the region that you are having pain. This is likely the source of your pain. Warm, moist heat can be helpful. Take Tylenol as needed for pain. Follow-up with the orthopedist, call to make an appointment. If any new or worsening symptoms occur including but not limited to severe chest pain, shortness for breath, worsening leg pain, please seek emergent care. Prescriptions: No Action fosfomycin tromethamine 3 gram packet 3 g PO Q3D 9 Days Qty: 3 0RF Rx Instructions: One dose (one packet) every 3 days fosfomycin tromethamine 3 gram packet 1 packet PO .weekly 84 Days Qty: 12 0RF Rx Instructions: One dose (one packet) every week for 12 weeks for UTI suppression vancomycin 125 mg capsule 125 mg PO TID 14 Days Qty: 42 0RF Rx Instructions: take along with bactrim and for 7 days after fosfomycin tromethamine 3 gram packet 3 g PO Q3D 9 Days Qty: 3 0RF Rx Instructions: One dose (one packet) every 3 days nitrofurantoin monohyd/m-cryst [Macrobid] 100 mg capsule 100 mg PO BID 7 Days Qty: 14 0RF Rx Instructions: must administer with a meal/food nitrofurantoin macrocrystal 50 mg capsule 50 mg PO BEDTIME 30 Days Qty: 30 1RF Rx Instructions: must administer with a meal/food FOR UTI SUPPRESSION phenazopyridine [Pyridium] 100 mg tablet 100 mg PO TID PRN (Reason: pain) 5 Days Qty: 15 0RF nitrofurantoin monohyd/m-cryst [Macrobid] 100 mg capsule 100 mg PO BID 5 Days Qty: 10 0RF Rx Instructions: must administer with a meal/food levothyroxine 50 mcg tablet 50 mcg PO DAILY vancomycin 125 mg capsule 125 mg PO .three times a week 30 Days Qty: 13 5RF vancomycin 125 mg capsule 125 mg PO QID 30 Days Qty: 120 0RF Rx Instructions: 125 mg po qid for 10 days and then 125 mg po every , , Friday thereafter vancomycin 125 mg capsule 125 mg PO QID 30 Days Qty: 120 0RF Referrals: [facility] [place] Orthopedic Surgeons [Provider Group] Interventions: ED Discharge Assessment Last Done: 06/29/24 14:21 Discharge Date/Time: 06/29/24 14:22 Print Language: Maltese
[2024-06-29 14:21] VITALS: BP 175/83; PULSE 73; RESP 16; TEMP 36; O2SAT 93
== END 2024-06-29 14:22 | disposition home or self-care (01) ==
PROVIDERS: Emergency Provider Emergency Medicine; PCP Internal Medicine
DX: R10.2 Pelvic and perineal pain (principal); M16.11 Unilateral primary osteoarthritis, right hip; R10.31 Right lower quadrant pain; Z79.899 Other long term (current) drug therapy
CPT/HCPCS: 73502; 99282; 99283

== ENCOUNTER → 2024-06-29 12:57 | Outpatient (BNV) | payer MEDICARE, SELFPAY | PROVIDERS: Emergency Provider Emergency Medicine; PCP Internal Medicine; Visit Provider Radiology Diagnostic Radiology | DX: M16.11 Unilateral primary osteoarthritis, right hip (principal) | CPT/HCPCS: 73502 ==

== ENCOUNTER 2024-07-15 13:19 | Outpatient (AMB) | payer MEDICARE, SELFPAY ==
[2024-07-15 13:27] VITALS: BP 122/70; PULSE 62; RESP 14; TEMP 36.6; O2SAT 95; BMI 25.1
--- NOTE | 2024-07-15 13:27 | MHC.PC.OV ---
Vital Signs 07/15/24 13:27 Height 5 ft 1 in Weight 133 lb BMI 25.1 BP 122/70 Respiration 14 Pulse 62 Pulse Source Pulse Oximeter Temp 97.8 F Temp Source Temporal Artery Scan Pulse Oximetry (%) 95 Oxygen Delivery Method Room Air Intake Visit Reasons: Routine Sustainable Design Consultant Required: No Accompanied by: Brother Allergies No Known Allergies [No Known Allergies*] Allergy (Verified 07/15/24 13:27) Medication List - Last Reconciled 07/15/24 by Adela Dickerson MD levothyroxine 50 mcg PO DAILY rosuvastatin 10 mg PO DAILY vancomycin 125 mg PO TID 14 days Tobacco use date assessed: 07/15/24 Fall risk assessment: No Falls in past year Last assessed Fall Risk: 07/15/24 Dental Screening Dental Screen Date: 07/15/24 Did you have a dental visit in the last 12 months?: No Did you have a dental problem in the last 6 months where you did not have access to dental care?: No HPI HPI Comments History of Present Illness Details The patient is an 88 year old female with a past medical history of hypothyroid, hyperlipidemia, reurrent UTI presenting for follow up. Last visit 04/08/2024 with PCP Hypothyroid: On levothyroxine 50mcg daily. CV: On crestor 10mg daily. Takes ASA 81 mg daily Urology: Recurrent UTIs. following with urology Stopped mammograms, colonoscopy ROS CONSTITUTIONAL: Denies weight loss, fever and chills. HEENT: Denies changes in vision and hearing. RESPIRATORY: Denies SOB and cough. CV: Denies palpitations and CP GI: Denies abdominal pain, nausea, vomiting and diarrhea. : Denies dysuria and urinary frequency. MSK: Denies new myalgia and joint pain. SKIN: Denies rash and pruritus. NEUROLOGICAL: Denies headache PSYCHIATRIC: Denies recent changes in mood. PHYSICAL EXAM: GENERAL: Alert and oriented x 3. NAD EYES: EOMI. Anicteric. HENT: Moist mucous membranes. No scleral icterus. No cervical lymphadenopathy. LUNGS: Clear to auscultation bilaterally. CARDIOVASCULAR: Regular rate and rhythm. No murmur. No JVD. ABDOMEN: Soft, non-tender +bs EXTREMITIES: No edema. Non-tender. SKIN: No rashes or lesions. Warm. NEUROLOGIC: No focal neurological deficits. CN II-XII grossly intact PSYCHIATRIC: Cooperative. Appropriate mood and affect [facility] Medical History Clostridium difficile colitis High cholesterol Hypothyroid Surgical History History of bladder suspension procedure History of hysterectomy Family History (Updated 07/15/24 @ 13:38 by YANE Bailon) Father Colon cancer Mother Stroke Social History (Updated 07/15/24 @ 13:39 by YANE Bailon) Housing: Apartment Alcohol intake: never Patient Tobacco Use Status: Former Tobacco user service: No Current occupational status: retired Cognitive needs: No Hearing needs: No Vision needs: Yes (rx glasses) Questionnaire PHQ-9 Over the last 2 weeks, how often have you been bothered by any of the following problems? 1. Little interest or pleasure in doing things: not at all 2. Feeling down, depressed, or hopeless: not at all 3. Trouble falling or staying asleep, or sleeping too much: not at all 4. Feeling tired or having little energy: not at all 5. Poor appetite or overeating: not at all 6. Feeling bad about yourself - or that you are a failure or have let yourself or your family down: not at all 7. Trouble concentrating on things, such as reading the newspaper or watching television: not at all 8. Moving or speaking so slowly that other people could have noticed. Or the opposite - being so fidgety or restless that you have been moving around a lot more than usual: not at all 9. Thoughts that you would be better off or of hurting yourself in some way: not at all Total score: 0 Depression Screening Interpretation: Negative Depression Screening Done: Yes 28918 - PHQ-9 Billing: Yes Source: Developed by Drs. Julien Landrum, Natalia Mendoza, Sukh Sue and colleagues, with an educational alejandro from [employer]. Thrive Questionnaire Date Thrive assessed: 07/15/24 I am a: Patient What is your living situation today?: I have a steady place to live Within the past 12 months, did the food you bought not last and you didn't have the money to get more?: Never true Within the past 12 months, did you worry whether your food would run out before you got money to buy more?: Never true Do you have trouble paying for medicines?: No Do you have trouble getting transportation to medical appointments?: No Do you have trouble paying your heating and electricity bill?: No Do you have trouble taking care of your child, family member or friend?: No Do you have trouble with day-to-day activities such as bathing, preparing meals, shopping, managing finances, etc.?: No Are you currently unemployed and looking for a job?: No Are you interested in more education?: No THRIVE Score: 0 AUDIT C Alcohol Use Questionnaire (AUDIT-C) 1. How often do you have a drink containing alcohol?: Never 3. How often do you have six or more drinks on one occasion?: Never Total Score: 0 DOMENICO-7 AMB Questionnaire DOMENICO-7 Date DOMENICO - 7 assessed: 07/15/24 Feeling nervous, anxious, or on edge: 0 = Not at all Not being able to stop or control worryin = Not at all Worrying too much about different things: 0 = Not at all Trouble relaxin = Not at all Being so restless that it is hard to sit still: 0 = Not at all Becoming easily annoyed or irritable: 0 = Not at all Feeling afraid as if something awful might happen: 0 = Not at all Total DOMENICO-7 score (0-4 normal; 5-9 mild; 10-14 moderate; 15-21 severe): 0 Source: Developed by Drs. Julien Landrum, Natalia Mendoza, Sukh Sue and colleagues, with an educational alejandro from [employer]. Physical exam (Primary Care) Vital Signs: Last Vital Signs Temp 97.8 F 07/15/24 13:27 Pulse 62 07/15/24 13:27 Resp 14 07/15/24 13:27 BP 122/70 07/15/24 13:27 Pulse Ox 95 07/15/24 13:27 Oxygen Delivery Method Room Air 07/15/24 13:27 BMI result Body Mass Index 25.1 Tobacco/Smoking Status: Tobacco use Status Tobacco use date assessed 07/15/24 07/15/24 13:30 Patient Tobacco Use Status Former Tobacco user 07/15/24 13:39 PHQ-9: PHQ-9 Score PHQ-9: Total score 0 07/15/24 13:44 Depression Screening Interpretation: Negative Thrive Assessment: Date of Thrive Assessment Date Thrive assessed 07/15/24 07/15/24 13:30 Coding Level of Care Code Est Pt Level 4 (72126) Diagnoses Hypothyroidism, unspecified type E03.9 Hypothyroidism type: unspecified High cholesterol E78.00 Recurrent UTI N39.0 Additional Codes PHQ-9 - 42229 - PHQ-9 Billing: Yes ([id number]) Assessment & Plan Assessment & Plan (1) Hypothyroid: Code(s): E03.9 - Hypothyroidism, unspecified Category: Medical Qualifiers: Hypothyroidism type: unspecified Qualified Code(s): E03.9 - Hypothyroidism, unspecified Plan: Clinically and biochemically euthyroid (2) High cholesterol: Code(s): E78.00 - Pure hypercholesterolemia, unspecified Category: Medical Plan: stable on statin. (3) Recurrent UTI: Code(s): N39.0 - Urinary tract infection, site not specified Category: Medical Plan: continue urology follow up Orders: Orders TSH reflex Free T4 Today E03.9 - Hypothyroidism, unspecified, E78.00 - Pure hypercholesterolemia, unspecified, N39.0 - Urinary tract infection, site not specified MMR IgG Measles Mumps Rubella Today E03.9 - Hypothyroidism, unspecified, E78.00 - Pure hypercholesterolemia, unspecified, N39.0 - Urinary tract infection, site not specified
--- OUTSIDE RECORDS SUMMARY | 2024-07-15 16:52 | XMS_ITS ---
Author Organization [facility] Address [address] [place] [id number] Care Team Providers Care Multimedia Services Coordinator Name Role Phone Sunil Gastelum MD Primary Care Provider Anthony Tapia Jr Unavailable REASON FOR VISIT c diff infection , fecal transplant Encounters Encounter Location Date Provider Diagnosis [facility] [address] [place] [phone] 04/02/2023 Anthony Branham Jr Plan Of Treatment No Information Progress Notes * RICKIE DURÁN ADOB:[birth year] (88 yo F)Acc No.[id number]:04/02/2023 Progress Notes Patient:?RICKIE DURÁN Provider:?Anthony Branham MD :1935???Age:87 Y???Sex:Female D ate:04/02/2023 Address:[address] [place], [place] [id number] Pcp:Sunil Gastelum MD Subjective: * Chief Complaints: * ???1. C diff infection , fec al transplant. * Medical History:? Objective: * Vitals:? Assessment: Plan: * Treatment: * * The named appointment provid er may or may not be the originator of this progress note, and it is not deemed complete until electronically signed by the appointment provider. Sign off status: Pending * Provider:?Anthony Branham MD Date:?1 06/02/2022 Generated for Printi ng/Faxing/eTransmitting on:?07/15/2024 04:52 PM EDT
--- OUTSIDE RECORDS SUMMARY | 2024-07-15 16:52 | XMS_ITS | Patient Health Record ---
Author Organization [facility] Address [address] [place] [address] Care Team Providers Care Steam Hoist Operator Name Role Phone Sunil Gastelum MD Primary Care Provider Anthony Tapia Jr Unavailable Allergies No Known Allergies Reason For Referral No Information Medications Medication SIG (Take, Route, Frequency, Duration) [...] Calcium 10 MG Oral for 90 Active Immunizations Vaccine Route Administration Date Status Comme nts Influenza Unknown 02/21/2021 Administered Influenza Unknown 02/19/2022 Administered Influenza Unknown 03/11/2019 Refused Social History Tobacco Use: Social History Observation [...] Problem Status W/U Status Risk Notes Problem 067330722 Colon cancer screening (Z12.11) Active confirmed Problem 704316046 Abdominal bloati ng (R14.0) Active confirmed Problem 037212746 Rectal discharge (R19.8) Active confirmed Problem 73075021 Abdominal gas pa in (R14.1) Active confirmed Problem 507694984 Clostridioides difficile infection (A49.8) Active confirmed Plan Of Treatment No Information Insurance Providers Payer Name Payer Address Payer Phone Subscriber Number Group Number Insured Name Patient Relationship to Insured Coverage Start Date Coverage End Date MEDICARE OF [place] [address] [place] [id number] RICKIE DURÁN Self - patient is the insured [employer] ATT[employer] CLAIMS [address] [place] [phone] [id number] RICKIE DURÁN Self - patient is the insured Medical (General) History Medical History History ICD Code Hypothyroidism Hyperlipidemia Urinary tract infections C. difficile infections Surgical History Surgery Date(Month/Year) bladder prolapse 2015 hysterectomy
--- OUTSIDE RECORDS SUMMARY | 2024-07-15 16:52 | XMS_ITS ---
Author Organization [facility] Address [address] [place] [phone] Care Team Providers Care Print Room Worker Name Role Phone Sunil Gastelum MD Primary Care Provider Anthony Tapia Jr Unavailable Allergies No Known Allergies REASON FOR VISIT [...] Problem Status W/U Status Risk Notes Problem [id number] Colon cancer screening (Z12.11) Active confirmed Vital Signs Temperature 96.2 degrees Fahrenheit 07/10/19 24 Blood pressure systolic 00 mm Hg 07/10/19 24 Blood pressure diastolic 00 mm Hg 024 Height 62 in 07/10/2023 Weight 131 lbs 07/10/2023 BMI 23.96 kg/m2 07/10/2023 Encounters Encounter Location Date Provider Diagnosis [facility] [address] [place] [phone] 07/10/2023 Anthony Branham Jr Clostridioides difficile infection [...] * RICKIE DURÁN ADOB:[birth year] (87 yo F)Acc No.[id number]:07/10/2023 Progress Notes Patient:?RICKIE DURÁN A Provider:?Anthony Branham MD :[id number]???Age:87 Y???Sex:Female D ate:07/10/2023 Address:[address] [place], [place] [id number] Pcp:Sunil Gastelum MD Subjective: * Chief Complaints: * ???1. Patient presents today for followup. * HPI: ???New symptom(s):? Rickie is seen today in followup of [...] a day and are nonbloody. * Medical History:?Hypothyroid ism, Hyperlipidemia, Urinary tract infections, C. difficile infections. * Surgical History:?bladder pr olapse 2016, hysterectomy . * Family History:?Father: dece ased, diagnosed with Colon cancer.?Mother: .? * Social History:?Tobacco Use:?Tobacco Use/Smoking?Patient is a?former smoker,?When did you stop smoking??38 years ago,?How long has it been since you last smoked??> 10 years.?Drugs/Alcohol:?Alcohol Screen?Did you have a drink containing alcohol in the past year??No,?Points?0,?Interpretation?Negative.?Miscellaneous:?Marital status: . Occupation: retired. * Medications:?Taking Vitamin D (Cholecalciferol) 25 MCG (1000 UT) [...] reviewed and reconciled with the patient * Allergies:?N.K.D.A. Objective: * Vitals:?Wt: 131 lbs, Ht: 62 in, BMI:23.96 Index, BP: 00/00 mm Hg, Temp: 96.2. * Examination: ???General Examination: ???On examination today, she appears younger than her stated age. Skin is anicteric. Lungs are clear. Heart shows regular rate and rhythm. Abdomen is soft without focal masses or tenderness. Assessment: * Assessment: 1.?Clostridioides difficile infection - A49.8 (Primary)?2.?Colon cancer screening - Z12.11? At this time, Rickie is doi ng [...] this time. Plan: * Treatment: * Procedure Codes:?G9903 Pt sc rn tbco id as non user, G9745 DOC RSN FOR NOT SCREEN/REC F/U HBP * Preventive Medicine:? ??Urinary Incontinence:?Urinary Incontinence?Assessment:?Absent,?Plan of care documented:?No, reason not specified.? * Follow Up:?prn * * Sign off status: Completed true * Provider:?Anthony Branham MD Date:?0 07/10/2023 Generated for Kerrie noel/Erendira/Netosmitting on:?07/15/2024 04:51 PM EDT History and Physical Notes * [...] Category Not es General Examination On exami [facility] today, she appears younger than her stated age. Skin is anicteric. Lungs are clear. Heart shows regular rate and rhythm. Abdomen is soft without focal masses or tenderness.
== END 2024-07-15 14:27 | disposition home or self-care (01) ==
LOC: HO.HMCHD 13:19
PROVIDERS: PCP Internal Medicine; Visit Provider Internal Medicine
DX: E03.9 Hypothyroidism, unspecified (principal); E78.00 Pure hypercholesterolemia, unspecified; N39.0 Urinary tract infection, site not specified

== ENCOUNTER 2024-07-15 13:19 | Outpatient (REF) | payer MEDICARE, SELFPAY ==
[2024-07-15 15:51] LABS: TSH reflex Free T4 1.45 uIU/mL (0.32-4.0)
[2024-07-16 21:04] LABS: Rubeola IgG (Measles) >300.00 AU/mL
== END 2024-07-15 13:20 | disposition home or self-care (01) ==
LOC: HO.LAB 13:19
PROVIDERS: PCP Internal Medicine; Visit Provider Internal Medicine
DX: E78.00 Pure hypercholesterolemia, unspecified (principal); N39.0 Urinary tract infection, site not specified; E03.9 Hypothyroidism, unspecified; Z79.899 Other long term (current) drug therapy
CPT/HCPCS: 36415; 84443; 86735; 86762; 86765; 96127; 99212

== ENCOUNTER 2024-07-23 11:01 | Emergency (ER) | payer MEDICARE, SELFPAY ==
--- NOTE | ~2024-07-23 | XR_ITS ---
EXAMINATION: XR HIP, RIGHT CLINICAL INFORMATION: right hip pain COMPARISON: None available. TECHNIQUE: Two views of the right hip. AP pelvis one view. FINDINGS: Pelvis AP: There is mild to moderate loss of right hip joint space. The left hip joint space is maintained. No visible acute fracture or dislocation seen. SI joints are symmetrical. No bony abnormality. The soft tissues are normal. There is moderate loss of right hip joint space with mild acetabular lucency likely osteopenia. No fracture, loose bodies or dislocation seen. The soft tissues are normal. XR/XR hip RT w PEL1V IMPRESSION: Mild degenerative changes right hip joint. No visible acute fracture or dislocation seen. Electronically signed by: Jeff Del Rio MD 07/23/2024 11:44 AM EDT
--- NOTE | 2024-07-23 11:16 | ED_ITS ---
HPI - General Adult General Chief complaint: Extremity Injury, Lower Stated complaint: R hip pain Time Seen by Provider: 07/23/24 12:53 Source: patient Mode of arrival: ambulatory Limitations: no limitations History of Present Illness ED Provider: Rayne Ramirez PA-C HPI narrative: 88 yo female presents to the ER for evaluation of 2 months of nontraumatic right hip and groin pain. she reports being seen by her PCP a couple of weeks ago, had x-rays performed and had an orthopedic referral placed. She has an appointment with them in 1 week. She reports the last 3 nights she has been ishaan ble to sleep due to increased pain in the right groin. The pain is worse when she straightens her legs and tries to sleep at night. She has been taking Tylenol and ibuprofen with minimal relief. She reports her pain is very manageable during the day and is only worse when she lays down and tries to sleep. She denies any numbness, tingling, weakness. The pain does sometimes radiate down the front of her leg and is shooting in nature. She denies any falls or trauma. she denies any associated abdominal pain, nausea, vomiting, urinary symptoms MD complaint: Right hip and groin pain Onset (ago): month(s) Location: right Radiation: distal Severity: severe Quality: stabbing and aching Pain Consistency: intermittent Exacerbating factors: other (supine position, palpation) Associated symptoms: denies other symptoms Treatments prior to arrival: none Related Data Home Medications ?Medication ?Instructions ?Recorded ?Confirmed levothyroxine 50 mcg tablet 50 mcg PO DAILY 11/21/20 rosuvastatin 10 mg tablet 10 mg PO DAILY 07/15/24 Previous Rx's ?Medication ?Instructions ?Recorded vancomycin 125 mg capsule 125 mg PO TID 14 days #42 caps 11/21/23 diclofenac sodium 1 % topical gel 2 g topical QID PRN pain, moderate 07/23/24 (Arthritis Pain (diclofenac)) #100 grams tizanidine 2 mg tablet 2 mg PO BEDTIME PRN muscle 07/23/24 spasticity #10 tabs Allergies Allergy/AdvReac Type Severity Reaction Status Date / Time No Known Allergies Allergy Verified 07/23/24 11:45 [No Known Allergies*] Review of Systems Review of Systems: Yes all other systems are reviewed and are negative PMFSH Past Medical History Medical History Clostridium difficile colitis High cholesterol Hypothyroid Surgical History History of bladder suspension procedure History of hysterectomy Family History Family History (Updated 07/15/24 @ 13:38 by YANE Bailon) Father Colon cancer Mother Stroke Social History Social History (Updated 07/15/24 @ 13:39 by YANE Bailon) Housing: Apartment Alcohol intake: never Patient Tobacco Use Status: Former Tobacco user Smoked in Last 30 Days: No Use of substances other than those prescribed or required for medical reasons: No Advance Directives: No Advance Directives Information Provided: No Do you have a plan to hurt others: No Plan service: No Current occupational status: retired Cognitive needs: No Hearing needs: No Vision needs: Yes (rx glasses) Physical Exam ED Vital Signs: Vital Signs - 24 hr 07/23/24 11:44 07/23/24 12:43 07/23/24 13:14 Temperature 97.0 F 97.5 F Pulse Rate 79 69 66 Respiratory Rate 16 14 16 Blood Pressure 197/83 H 186/81 H Pulse Oximetry 95 93 92 Oxygen Delivery Method Room Air Room Air Room Air 07/23/24 13:22 07/23/24 13:53 07/23/24 14:50 Temperature 97.6 F Pulse Rate 66 Respiratory Rate 16 Blood Pressure 170/86 H 165/94 H 173/75 H Pulse Oximetry 99 Oxygen Delivery Method Room Air 07/23/24 14:50 Temperature 97.6 F Pulse Rate 66 Respiratory Rate 16 Blood Pressure 173/75 H Pulse Oximetry 99 Oxygen Delivery Method Room Air BMI result Body Mass Index 24.0 Appearance: Alert elderly female sitting on the chair. Oriented X3. No acute distress. HEENT: normal inspection CVS: Normal heart rate and rhythm. Pulses normal. Respiratory: No respiratory distress. Skin: Skin warm and dry. Normal skin color. Normal skin turgor. No rashes. Extremities: normal inspection of the bilateral lower extremities, no peripheral edema. there is anterior tenderness to the right hip/groin with soft tissue tenderness. no palpable hernia. no pain with passive flexion of the hip. nontender lateral hip. Neuro: Oriented X 3. No motor deficit. No sensory deficit. steady gait Course Course Course Narrative: RME performed by Antonette Sahu PA-C. Patient is an 88 year old assigned female at presenting to the emergency department with right hip pain. Patient states she has been having right hip pain that radiates down into the right knee. Patient states that she has had this pain for a month and has an appointment with her Orthopedist on September 02. Detailed physical exam and review of systems are deferred to the professor of floriculture. Imaging ordered. Patient placed back in the waiting room pending room availability and results. Medical Decision Making Medical Decision Making [facility] Narrative: 88-year-old female presents to the ER for evaluation of 2 months of right hip and groin pain. No trauma. She is ambulatory with no pain upon flexion. There is soft tissue tenderness /anterior tenderness of the right groin consistent with possible muscle strain / spasm. This can be reproduced with palpation and extension of the right hip. she may benefit from physical therapy. She has an appointment with orthopedics next week. Will start her on low-dose muscle relaxer q.h.s. as needed for pain. Will encourage her to continue with heat, rest, NSAIDs and Tylenol. Will prescribe topical NSAID as well. Comfortable discharge home with outpatient follow-up. Differential Diagnosis Differential Diagnoses: The differential diagnosis associated with the presentation includes osteoarthritis, groin strain, pubic rami fracture, hip fracture, Low suspicion for hernia Independent Interpretation I performed an independent interpretation of an: Plain X-Ray Interpretation: no acute fracture appreciated Radiology Impression Discussion of test interpretation with radiology: I have reviewed the radiologist's reading. External Record Review External record reviewed: Prior outpatient labs and Prior outpatient radiology Tests considered The following testing was considered but not selected: considered CT scan of her abdomen and pelvis to rule out occult fracture or hernia however given duration of symptoms and physical exam this does not need t o be emergently performed today Prescription Management I considered prescription management with: Pain Medication Critical Care Time Critical Care Time Critical Care Time: No Discharge Plan Discharge Clinical Impression: Strain of flexor muscle of right hip Qualifiers: Encounter type: initial encounter Qualified Code(s): S76.011A - Strain of muscle, fascia and tendon of right hip, initial encounter Patient Disposition: Home, Self-Care Instructions: Groin Strain (ED) Additional Instructions: Recommend taking a dose of ibuprofen 400 mg in the evening with dinner. Recommend taking 1000 mg of Tylenol before bed along with the prescribed muscle relaxer. Use the prescribed anti-inflammatory gel to the area as needed before bed. Follow-up with orthopedics in your primary care doctor. You may benefit from physical therapy. Your blood pressure was noted to be elevated today. This slowly improved on its own without any intervention. Follow-up with your primary care doctor for this. If you develop new or worsening symptoms call 911 or come back to the ER for further evaluation. XR/XR hip RT w PEL1V IMPRESSION: Mild degenerative changes right hip joint. No visible acute fracture or dislocation seen. Prescriptions: New tizanidine 2 mg tablet 2 mg PO BEDTIME PRN (Reason: muscle spasticity) Qty: 10 0RF diclofenac sodium [Arthritis Pain (diclofenac)] 1 % gel 2 g topical QID PRN (Reason: pain, moderate) Qty: 100 0RF Rx Instructions: apply to right hip as needed for pain No Action vancomycin 125 mg capsule 125 mg PO TID 14 Days Qty: 42 0RF Rx Instructions: take along with bactrim and for 7 days after levothyroxine 50 mcg tablet 50 mcg PO DAILY rosuvastatin 10 mg tablet 10 mg PO DAILY Interventions: ED Discharge Assessment Last Done: 07/23/24 14:50 Discharge Date/Time: 07/23/24 14:51 Print Language: Hebrew
[2024-07-23 11:44] VITALS: PULSE 79; RESP 16; TEMP 36.1; O2SAT 95; BMI 24.0
[2024-07-23 12:43] VITALS: BP 197/83; PULSE 69; RESP 14; TEMP 36.4; O2SAT 93
[2024-07-23 13:14] VITALS: BP 186/81; PULSE 66; RESP 16; O2SAT 92
[2024-07-23 13:22] VITALS: BP 170/86
[2024-07-23 13:53] VITALS: BP 165/94
[2024-07-23 14:50] VITALS: BP 173/75; PULSE 66; RESP 16; TEMP 36.4; O2SAT 99
== END 2024-07-23 14:51 | disposition home or self-care (01) ==
PROVIDERS: Emergency Provider Emergency Medicine; PCP Internal Medicine
DX: S76.011A Strain of muscle, fascia and tendon of right hip, initial encounter (principal); M25.551 Pain in right hip; R10.30 Lower abdominal pain, unspecified; M79.604 Pain in right leg; X58.XXXA Exposure to other specified factors, initial encounter; Y93.9 Activity, unspecified; Y92.9 Unspecified place or not applicable; Y99.8 Other external cause status; Z87.891 Personal history of nicotine dependence
CPT/HCPCS: 73502; 99283; 99284

== ENCOUNTER → 2024-07-23 11:17 | Outpatient (BNV) | payer MEDICARE, SELFPAY | PROVIDERS: Visit Provider Radiology Diagnostic Radiology | DX: M25.551 Pain in right hip (principal) | CPT/HCPCS: 73502 ==

== ENCOUNTER 2024-07-26 11:32 | Outpatient (REF) | payer MEDICARE, SELFPAY | END 2024-07-26 11:33 | disposition home or self-care (01) | LOC: HO.LAB 11:32 | PROVIDERS: PCP Internal Medicine | DX: M16.11 Unilateral primary osteoarthritis, right hip (principal); N39.0 Urinary tract infection, site not specified | CPT/HCPCS: 81003; 87086; 87088; 87186; 99212 ==

== ENCOUNTER 2024-07-26 11:32 | Outpatient (AMB) | payer MEDICARE, SELFPAY ==
[2024-07-26 13:14] VITALS: BP 110/74; PULSE 66; O2SAT 98
--- NOTE | 2024-07-26 13:14 | AM.OFFWIN_ITS ---
Intake Vital Signs 07/26/24 13:14 Weight 132 lb 8 oz BP 110/74 Blood Pressure Location Lt brachial Position Sitting Pulse 66 Pulse Source Pulse Oximeter Pulse Oximetry (%) 98 Oxygen Delivery Method Room Air Intake Visit Reasons: EP-rt hip pain & uti Intake Note: Patient here for right hip pain, and cloudy urine that has been present for a couple of days. Patient Tobacco Use Status: Former Tobacco user Allergies No Known Allergies [No Known Allergies*] Allergy (Verified 07/26/24 13:21) Do you need a note to return to daycare/school/sports/work: No HPI HPI Comments History of Present Illness Details History of Present Illness - The patient is an 88-year-old female p resenting with a urinary tract infection. She reports cloudy urine starting the morning of the visit, without associated pain on urination. No history of increased urination frequency, back pain, fever, or blood in urine was noted, and she has no known history of kidney stones. - Additionally, she reports chronic righ t hip pain related to osteoarthritis, causing significant discomfort and elevated blood pressure readings due to pain severity. On a recent emergency department visit, she was prescribed a muscle relaxant. Unfortunately, she struggles with sleep due to pain extending down her legs. The muscle relaxer helps her with the pain and sleep but she only has 2 tablets left and her Ortho appt isn't until Friday. Despite a scheduled orthopedic consultation for further evaluation, symptoms persist, indicating a potential future requirement for a hip replacement. Physical Exam General: Cooperative, healthy appearing, comfortable, no acute distress and well developed Orientation: Patient oriented x3 Limitations: No limitations Head: Normal to inspection Ears: Hearing grossly normal bilaterally Nose: Normal External nose present Face and sinus: Normal facial exam Eyes: Appearance normal, both eyes and all related structures Neck: Normal visual inspection and Yes full ROM Respiratory: Normal respiratory effort and able to speak in complete sentences. Skin: No rashes or lesions noted Neuro: Patient oriented x3 Extremities: Normal to inspection [facility] Medical History Clostridium difficile colitis High cholesterol Hypothyroid Surgical History History of bladder suspension procedure History of hysterectomy Family History (Updated 07/15/24 @ 13:38 by YANE Bailon) Father Colon cancer Mother Stroke Social History (Updated 07/15/24 @ 13:39 by YANE Bailon) Housing: Apartment Alcohol intake: never Patient Tobacco Use Status: Former Tobacco user service: No Current occupational status: retired Cognitive needs: No Hearing needs: No Vision needs: Yes (rx glasses) Review of Systems Const All systems reviewed & are unremarkable except as noted in HPI and below Physical Exam Vital Signs: Last Vital Signs Pulse 66 07/26/24 13:14 BP 110/74 07/26/24 13:14 Pulse Ox 98 07/26/24 13:14 Oxygen Delivery Method Room Air 07/26/24 13:14 Results AMB Urinalysis, Automated UA Leukoctes 500 Chilo/uL Last Edit by VIKRAM Serrano on 07/26/24 13: 34 UA Nitrite Positive Last Edit by Seven Wallace [facility] on 07/26/24 13:34 UA Urobilinogen 0.2 mg/dL Last Edit by Seven Wallace [facility] on 07/26/24 13:34 UA Protein 30 mg/dL Last Edit by Seven Wallace [facility] on 07/26/24 13:34 UA pH 6.0 Last Edit by Seven Wallace [facility] on 07/26/24 13:34 UA Blood 200 Nazario/uL Last Edit by Seven Wallace [facility] on 07/26/24 13:34 UA Specific [place] 1.015 Last Edit by Seven Wallace [facility] on 07/26/24 13:34 UA Ketone Negative Last Edit by Seven Wallace [facility] on 07/26/24 13:34 UA Bilirubin 0 mg/dL Last Edit by Seven Wallace [facility] on 07/26/24 13:34 UA Glucose 0 mg/dL Last Edit by Seven Wallace [facility] on 07/26/24 13:34 Results Reviewed Results Reviewed: Laboratory Last Values Urine pH (Auto) 6.0 07/26/24 13:33 Specific [place] (Auto) 1.015 07/26/24 13:33 Urine Protein (Auto) 30 mg/dL 07/26/24 13:33 Glucose (UA)(Auto) 0 mg/dL 07/26/24 13:33 Urine Ketones (Auto) Negative 07/26/24 13:33 Urine Blood (Auto) 200 Nazario/uL 07/26/24 13:33 Urine Nitrite (Auto) Positive 07/26/24 13:33 Urine Bilirubin (Auto) 0 mg/dL 07/26/24 13:33 Urine Urobilinogen (Auto) 0.2 mg/dL 07/26/24 13:33 Leukocyte Esterase (Auto) 500 Chilo/uL 07/26/24 13:33 Assessment & Plan Assessment & Plan (1) Recurrent UTI: Code(s): N39.0 - Urinary tract infection, site not specified Plan: VSS, pt well appearing, UA 3+ leuks, pos nitrites, 3+ blood, 1+ protein. I prescribed Cefuroxime to treat the urinary tract infection, based on susceptibility profiles from previous cultures. The urine sample will be cultured, and adjustments to the treatment will be made based on the results if needed. Patient was informed and verbally consented to the use of an ambient scribe for clinic note documentation during this visit. (2) Osteoarthrosis: Code(s): M19.90 - Unspecified osteoarthritis, unspecified site Qualifiers: Osteoarthritis location: hip Osteoarthritis type: unspecified Laterality: right Qualified Code(s): M16.11 - Unilateral primary osteoarthritis, right hip Plan: For the osteoarthritic pain, I advised continuing the muscle relaxant to manage the hypertensive response to pain until her scheduled orthopedic follow-up. Precautionary advice was given regarding the potential for medication-induced drowsiness, particularly at night. No further interventions were discussed for hypertension as it was WNL today. Orders: Orders AMB Urinalysis Automated Today Z13.9 - Encounter for screening, unspecified Urine Culture Today N39.0 - Urinary tract infection, site not specified Medications: New cefuroxime axetil 500 mg PO Q12H 10 tabs 0RF Refilled tizanidine 2 mg PO BEDTIME PRN 14 tabs 0RF muscle spasticity Coding Level of Care Code Est Pt Level 4 (04699) Diagnoses Recurrent UTI N39.0 Osteoarthritis of right hip, unspecified osteoarthritis type M16.11 Osteoarthritis location: hip Osteoarthritis type: unspecified Laterality: right
== END 2024-07-26 13:52 | disposition home or self-care (01) ==
PROVIDERS: PCP Internal Medicine; Visit Provider Physician Assistant
DX: N39.0 Urinary tract infection, site not specified (principal); M16.11 Unilateral primary osteoarthritis, right hip; Z13.9 Encounter for screening, unspecified

== ENCOUNTER 2024-07-30 12:37 | Outpatient (AMB) | payer MEDICARE, SELFPAY ==
--- NOTE | 2024-07-30 13:02 | A.OFFVIS_ITS ---
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 Patient was recently seen at the walk in clinic for her concerns. She was advised to take muscle relaxers. Her pain has been going for a couple months. Patient reports she thinks it can be her siactic nerve. Patient informed me that her pain is worse when is sitting. 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 She reports an onset about two to three months ago, not related to any specific event. The pain has a significant impact on her daily activities, such as prolonged standing, negotiating stairs, and exiting vehicles, which aggravate her symptoms. Additionally, the patient feels discomfort that radiates down to her buttocks and leg, indicative of potential lumbar nerve involvement. She denies any prior trauma or related inciting factors. The patient has noted anterior thigh and groin pain, for which she applies topical cream with some relief. Despite her active lifestyle, the pain persists, leading her to consider further evaluation and management. [facility] Medical History Clostridium difficile colitis High cholesterol Hypothyroid Surgical History History of bladder suspension procedure History of hysterectomy Family History (Updated 07/15/24 @ 13:38 by YANE Bailon) Father Colon cancer Mother Stroke Social History Housing: Apartment Alcohol intake: never Patient Tobacco Use Status: Former Tobacco user service: No Current occupational status: retired Cognitive needs: No Hearing needs: No Vision needs: Yes (rx glasses) Review of Systems Const All systems reviewed & are unremarkable except as noted in HPI and below Physical Exam Vital Signs: BMI result Body Mass Index 24.9 Const General: cooperative and no acute distress Orientation/consciousness: patient oriented x3 Resp Effort & Inspection: normal respiratory effort and able to speak in complete sentences Cardio Peripheral pulses: Peripheral pulses 2+ throughout Neuro General: patient oriented x3 Extrem Other: Right hip normal to inspection no pain with range of motion. Mild discomfort with hip flexion against resistance. Mild discomfort with palpation over the SI joint. Mild discomfort with straight leg raise. Results Reviewed Results Reviewed: xrays left hip 07/23/24 IMPRESSION: Mild degenerative changes right hip joint. No visible acute fracture or dislocation seen. Assessment & Plan Assessment & Plan (1) Osteoarthritis of right hip: Code(s): M16.11 - Unilateral primary osteoarthritis, right hip Category: Medical (2) Sciatica of right side without back pain: Code(s): M54.31 - Sciatica, right side Category: Medical Plan I discussed with the patient the presence of right hip osteoarthritis as identified in previous x-rays and emphasized the plan to begin with conservative management through physical therapy. We reviewed the potential benefits of this approach, including muscle strengthening, increased joint stability, and potent ial reduction of pain. We explored the option of hip replacement surgery as a future consideration if the arthritis progresses, but current indicators do not necessitate such an intervention. I explained that should the pain persist or if it proves to be more of a lumbar issue, evaluation by a petroleum supply specialist would be the next step. The patient expressed willingness to start therapy and understands the current plan. I provided information on how to initiate therapy and instructed on when to seek further evaluation. Orders: Orders PT Evaluation and Treatment Today M16.11 - Unilateral primary osteoarthritis, right hip, M54.31 - Sciatica, right side Coding Level of Care Code New Pt Level 3 (67223) Complex EM visit Add On G2211 Diagnoses Osteoarthritis of right hip M16.11 Sciatica of right side without back pain M54.31
[2024-07-30 13:08] VITALS: BMI 24.9
== END 2024-07-30 13:22 | disposition home or self-care (01) ==
LOC: HO.HOS 12:37
PROVIDERS: PCP Internal Medicine; Visit Provider Physician Assistant
DX: M16.11 Unilateral primary osteoarthritis, right hip (principal); M54.31 Sciatica, right side
CPT/HCPCS: 99203; G2211

== ENCOUNTER → 2024-07-30 12:37 | Outpatient (BNVA) | payer MEDICARE, SELFPAY | PROVIDERS: PCP Internal Medicine; Visit Provider Physician Assistant | DX: M16.11 Unilateral primary osteoarthritis, right hip (principal); M54.31 Sciatica, right side | CPT/HCPCS: 99202 ==

== ENCOUNTER 2024-08-02 12:19 | Outpatient (AMB) | payer MEDICARE, SELFPAY ==
--- NOTE | 2024-08-02 13:16 | AM.OFFWIN_ITS ---
Intake Vital Signs 08/02/24 13:23 Weight 133 lb BP 122/80 Blood Pressure Location Lt brachial Position Sitting Pulse 64 Pulse Source Pulse Oximeter Pulse Oximetry (%) 93 Oxygen Delivery Method Room Air Intake Visit Reasons: EP UTI is back? Intake Note: Patient here for burning on urination, full bladder feeling and frequent urination that has not improved since being put on antibiotics. Patient Tobacco Use Status: Former Tobacco user Allergies ibuprofen Allergy (Verified 07/30/24 13:07) upset stomach Do you need a note to return to daycare/school/sports/work: No HPI HPI Comments History of Present Illness Details 88 y/o female patient who presents to [facility] walk [facility] clinic with c/o Dsyuria and cloudy urine. She was seen here 07/26 for similar symptoms and was treated with Cefuroxim x 5 days. Pt reports that symptoms subsided for 3 days, but only to return later. Reports lower abdominal cramping with urination. Microbiology sen07/26 return positive for K.Pneumonie. She reports to have a history of bladder prolapse with surgical intervention approximately [address] Zayda Melchor. She also reports having had a hysterectomy at the age of [age] years old. she denies urinary urgency, urinary frequency, incontinence, nocturia, hematuria, foul smelling urine, changes to urinary stream, flank pain, fever, and or chills. [facility] Medical History Clostridium difficile colitis High cholesterol Hypothyroid Surgical History History of bladder suspension procedure History of hysterectomy Family History (Updated 07/15/24 @ 13:38 by YANE Bailon) Father Colon cancer Mother Stroke Social History Housing: Apartment Alcohol intake: never Patient Tobacco Use Status: Former Tobacco user service: No Current occupational status: retired Cognitive needs: No Hearing needs: No Vision needs: Yes (rx glasses) Review of Systems Const All systems reviewed & are unremarkable except as noted in HPI and below Physical Exam Vital Signs: Last Vital Signs Pulse 64 08/02/24 13:23 BP 122/80 08/02/24 13:23 Pulse Ox 93 08/02/24 13:23 Oxygen Delivery Method Room Air 08/02/24 13:23 Const General: no acute distress Orientation/consciousness: patient oriented x3 GI Inspection: No distended Palpation (GI): Soft to palpation, not firm, Tenderness to palpation present (GI) suprapubicly, no guarding and not rigid Rectal Exam - Female: deferred Other: Pelvic exam deferred. General: Yes no CVA tenderness Back/Spine/Pelvis Back: no CVA tenderness Neuro General: patient oriented x3, gait normal and moves all extremities Psych Speech and movement: Normal speech and movement present Assessment & Plan Assessment & Plan (1) Recurrent UTI: Code(s): N39.0 - Urinary tract infection, site not specified Plan: Ordered Cipro 500 mg BID, high Sensitivity for K.Pneumonie No need for C&S, recent results 07/26 Advised to f/u with Urology for proper management of her recurrent UTIs. Medications: New ciprofloxacin HCl 500 mg PO BID 7 days 14 tabs 0RF N39.0 - Urinary tract infection, site not specified Discontinued tizanidine Discontinued Reason: No Longer Medically Relevant 2 mg PO BEDTIME PRN 14 tabs 0RF muscle spasticity Coding Level of Care Code Est Pt Level 4 (03871) Diagnoses Recurrent UTI N39.0 Time Spent (min) 20
[2024-08-02 13:23] VITALS: BP 122/80; PULSE 64; O2SAT 93
--- OUTSIDE RECORDS SUMMARY | 2024-08-02 13:58 | XMS_ITS | Patient Health Record ---
Author Organization [facility] Address [address] [place] [address] Care Team Providers Care Caddy Name Role Phone Sunil Gastelum MD Primary Care Provider Anthony Tapia Jr Unavailable [phone] Allergies No Known Allergies Reason For Referral [...] Problem Status W/U Status Risk Notes Problem 883738190 Colon cancer screening (Z12.11) Active confirmed Problem 732956853 Abdominal bloati ng (R14.0) Active confirmed Problem 478120994 Rectal discharge (R19.8) Active confirmed Problem 47288467 Abdominal gas pa in (R14.1) Active confirmed Problem 170927865 Clostridioides difficile infection (A49.8) Active confirmed Plan Of Treatment No Information Insurance Providers Payer Name Payer Address Payer Phone Subscriber Number Group Number Insured Name Patient Relationship to Insured Coverage Start Date Coverage End Date MEDICARE OF [place] [address] N[place] J[place] [id number] RICKIE DURÁN Self - patient is the insured MEDEX ATTN CLAIMS [address] [place] [address] [phone] [id number] RICKIE DURÁN Self - patient is the insured Medical (General) History Medical History History ICD Code Hypothyroidism Hyperlipidemia Urinary tract infections C. difficile infections Surgical History Surgery Date(Month/Year) bladder prolapse 2015 hysterectomy
--- OUTSIDE RECORDS SUMMARY | 2024-08-02 13:58 | XMS_ITS ---
Author Organization [facility] Address [address] [place] [address] Care Team Providers Care Investor Relations Analyst Name Role Phone Sunil Gastelum MD Primary [...] Problem Status W/U Status Risk Notes Problem [id number] Colon cancer screening (Z12.11) Active confirmed Vital Signs Temperature 96.2 degrees Fahrenheit 07/10/19 24 Blood pressure systolic 00 mm Hg 07/10/19 24 Blood pressure diastolic 00 mm Hg 024 Height 62 in 07/10/2023 Weight 131 lbs 07/10/2023 BMI 23.96 kg/m2 07/10/2023 Encounters Encounter Location Date Provider Diagnosis [facility] [address] [place] [phone] 07/10/2023 Anthony Branahm Jr Clostridioides difficile infection A49.8 and Colon [...] * RICKIE DURÁN ADOB:[birth year] (87 yo F)Acc No.[id number]:07/10/2023 Progress Notes Patient:?RICKIE DURÁN A Provider:?Anthony Branham MD :1935???Age:87 Y???Sex:Female D ate:07/10/2023 Address:[address] [place], [place] [id number] Pcp:Sunil Gastelum MD Subjective: * Chief Complaints: [...] MD Date:?0 07/10/2023 Generated for Kerrie noel/Erendira/Netosmitting on:?08/02/2024 01:58 PM EDT History and Physical Notes * [...]
--- OUTSIDE RECORDS SUMMARY | 2024-08-02 13:59 | XMS_ITS ---
Author Organization [facility] Address [address] [place] [address] Care Team Providers Care Hand Cigar Maker Name Role Phone Sunil Gastelum MD Primary Care Provider Anthony Tapia Jr Unavailable REASON FOR VISIT c diff infection , fecal transplant Encounters Encounter Location Date Provider Diagnosis [facility] [address] [place] [phone] 04/02/2023 Anthony Branham Jr Plan Of Treatment No Information Progress Notes * RICKIE DURÁN ADOB:[birth year] (88 yo F)Acc No.[id number]:04/02/2023 Progress Notes Patient:?RICKIE DURÁN Provider:?Anthony Branham MD :1935???Age:87 Y???Sex:Female D ate:04/02/2023 Address:[address] [place], [place] [id number] Pcp:Sunil Gastelum MD Subjective: * Chief Complaints: [...] MD Date:?1 06/02/2022 Generated for Printi ng/Faxing/eTransmitting on:?08/02/2024 01:58 PM EDT
== END 2024-08-02 14:19 | disposition home or self-care (01) ==
PROVIDERS: PCP Internal Medicine; Visit Provider Nurse Practitioner Family
DX: N39.0 Urinary tract infection, site not specified (principal); Z13.9 Encounter for screening, unspecified

== ENCOUNTER → 2024-08-02 12:19 | Outpatient (BNVA) | payer MEDICARE, SELFPAY | PROVIDERS: PCP Internal Medicine; Visit Provider Nurse Practitioner Family | DX: N39.0 Urinary tract infection, site not specified (principal) | CPT/HCPCS: 81003; 99212 ==

== ENCOUNTER 2024-08-12 13:05 | Outpatient (AMB) | payer MEDICARE, SELFPAY ==
--- NOTE | 2024-08-12 13:16 | MHC.OFFVIS ---
Intake Visit Reasons: 6m/UA/recurrent UTI Intake Note: Patient is present for 6 month/recurrent UTI Urology Medication:none Antibiotic Allergy:none Blood Thinner:none PVR:0ml Secondary School Teacher Librarian Required: No Allergies ibuprofen Allergy (Verified 08/12/24 13:24) upset stomach HPI Comments Details: 08/12/24--Maryann is an 88-year-old female who presents to the office today for follow-up of her recurrent urinary tract infections. She has comorbidity of bowel disorder with symptoms of loose stools, h/o C. Diff followed by GI. H/O hyst and prolapse surgery x 2. UA today is within normal limits. The patient seen a few weeks ago by urgent care for UTI symptoms and treated with the antibiotics, Cipro 500 mg twice a day for 7 days. Urine culture 07/26/2024--E coli pansensitive. Because of her history of C diff I had discussed in the future, alternative options to consider such as bladder installations with gentamicin. The patient does not want to be catheterized. Continue to monitor follow-up in 6 months. Patient notes today that she has had some sciatica with referred pain to her right groin in has needed to use an assisted device during walking. 02/12/24--Maryann is an 88 year old female patient who presents to the office today for follow-up of her recurrent urinary tract infections. She has comorbidity of bowel disorder with symptoms of loose stools, h/o C. Diff followed by GI. H/O hyst and prolapse surgery x 2. UA today is within normal limits. She was treated with antibiotics on 08/02/24--- Cipro 500 mg twice a day for 7 days 09/15/23--Cystoscopy findings: Mild bladder wall thickening, no suspicious bladder lesions visualized Pelvic exam narrow introitus status post colposcopy. Cystoscopy findings: Mild bladder wall thickening, no suspicious bladder lesions visualized. Follow-up in 4-5 months. 05/27/23--Maryann is a pleasant 87 year old female patient of Dr. Gastelum. She has a past medical history of hypothyroidism and hypercholesteremia. She presents to the office today for follow-up of her recurrent urinary tract infections. She has problems with loose stools and is folowed by secondary school teacher librarian Dr. Branham. She is s/p hysterectomy and states she had bladder prolapse repair x 2, the last one about 7 years ago. Discussed using baby wipes (front/back) post BM's. Pt declined office cysto today, had questions, wants to resched, office cystoscopy in 6 wks. Renal US -- 01/2023-- Kidneys WNL, bilateral kidneys with no calculi, lesions, or hydronephrosis noted. The bladder is well distended and normal. Bilateral ureteral jets are demonstrated. Pre void bladder volume is approximately 225 mL. Postvoid bladder volume is approximately 50 mL. [facility] Medical History Clostridium difficile colitis High cholesterol Hypothyroid Surgical History History of bladder suspension procedure History of hysterectomy Family History Father Colon cancer Mother Stroke Social History Housing: Apartment Alcohol intake: never Patient Tobacco Use Status: Former Tobacco user service: No Current occupational status: retired Cognitive needs: No Hearing needs: No Vision needs: Yes (rx glasses) Review of Systems Const All systems reviewed & are unremarkable except as noted in HPI and below Reports no additional complaints Eyes Reports no additional complaints ENT Reports no additional complaints Card Reports no additional complaints Resp Reports no additional complaints GI Reports no additional complaints Reports as per HPI Musc Reports no additional complaints Skin/Breast Reports system reviewed and no additional complaints, except as documented Neuro Reports no additional complaints Psych Reports no additional complaints Endo Reports no additional complaints Avila/Lymph Reports no additional complaints Aller/Immun Reports no additional complaints Results Reviewed Results Reviewed: Date of Service: 01/14/23 EXAMINATION: US RETROPERITONEAL COMPLETE (RENAL) Collected: 07/26/24113 Status: COMP Req#: [id number] Received: 07/27/24-1015 Source: [facility] Sp Desc: Subm Dr: Pam Rivera PA-C Ordered: Urine Culture Procedure Result Verified Urine Culture Final 07/29/24 Organism 1 Escherichia coli Quant > 100,000 cfu/mL E coli M.I.C. RX --------- --- Ampicillin <=2 S Cefazolin (Urine) <=1 S Cefepime <=0.12 S Ceftriaxone <=0.25 S Ciprofloxacin <=0.06 S Gentamicin <=1 S Nitrofurantoin <=16 S Trimethoprim/Sulfamethoxazole <=20 S FINDINGS: RIGHT KIDNEY: 9.2 x 5.4 x 4.6 cm (SAG x AP x TRV). The kidney is normal in size, contour, and echogenicity. Renal cortical thickness is normal. No calculi or focal parenchymal lesions. No hydronephrosis. LEFT KIDNEY: 10.0 x 5.8 x 3.9 cm (SAG x AP x TRV). The kidney is normal in size, contour, and echogenicity. Renal cortical thickness is normal. No calculi or focal parenchymal lesions. No hydronephrosis. BLADDER: Well distended and normal. Bilateral ureteral jets are demonstrated. Prevoid bladder volume is 223.2 mL. Postvoid bladder volume is 48 mL. IMPRESSION: Small postvoid bladder residual of 48 mL. Otherwise unremarkable renal ultrasound. Assessment & Plan Assessment & Plan (1) Frequent loose stools: Code(s): R19.7 - Diarrhea, unspecified Category: Medical (2) Recurrent UTI: Code(s): N39.0 - Urinary tract infection, site not specified Category: Medical (3) History of Clostridium difficile colitis: Code(s): Z86.19 - Personal history of other infectious and parasitic diseases Category: Medical Plan The patient seen a few weeks ago by urgent care for UTI symptoms and treated with the antibiotics, Cipro 500 mg twice a day for 7 days. Urine culture 07/26/2024--E coli pansensitive. Because of her history of C diff I had discussed in the future, alternative options to consider such as bladder installations with gentamicin. The patient does not want to be catheterized. Continue to monitor follow-up in 6 months. Patient Instructions: The patient had an opportunity to ask questions regarding treatment plan. The patient expressed understanding and agreement with the above treatment plan. The patient is aware they should contact our office by phone for worsening of their current condition or the appearance of new symptoms. Compliance is encouraged with any medications and followup testing that is ordered. It is a privilege to be allowed the opportunity to participate in the urologic care of your patient. If you have any questions or concerns regarding treatment for the above conditions please do not hesitate to contact me. The office telephone contact is [phone]. This note is constructed in part using voice recognition software. While every effort has been made to ensure accuracy solutions architect consultant errors may have been included. Yours sincerely, Jamie Avalos MD Coding Level of Care Code Est Pt Level 3 (03945) Complex EM visit Add On G2211 Diagnoses Frequent loose stools R19.7 Recurrent UTI N39.0 History of Clostridium difficile colitis Z86.19
--- OUTSIDE RECORDS SUMMARY | 2024-08-12 15:48 | XMS_ITS ---
Author Organization [facility] Address [address] [place] [address] Care Team Providers Care Corporate Vp Advertising & Online Name Role Phone Sunil Gastelum MD Primary [...] Problem Status W/U Status Risk Notes Problem [id number] Colon cancer screening (Z12.11) Active confirmed Vital Signs Temperature 96.2 degrees Fahrenheit 07/10/19 24 Blood pressure systolic 00 mm Hg 07/10/19 24 Blood pressure diastolic 00 mm Hg 024 Height 62 in 07/10/2023 Weight 131 lbs 07/10/2023 BMI 23.96 kg/m2 07/10/2023 Encounters Encounter Location Date Provider Diagnosis [facility] [address] [place] [phone] 07/10/2023 Anthony Branham Jr Clostridioides difficile infection [...] * RICKIE DURÁN ADOB:[birth year] (87 yo F)Acc No.[id number]:07/10/2023 Progress Notes Patient:?RICKIE DURÁN A Provider:?Anthony Branham MD :1935???Age:87 Y???Sex:Female D ate:07/10/2023 Address:[address] [place], [place] [id number] Pcp:Sunli Gastelum MD Subjective: * Chief Complaints: * [...] MD Date:?0 07/10/2023 Generated for Kerrie noel/Erendira/Netosmitting on:?08/12/2024 03:47 PM EDT History and Physical Notes * [...] Not es General Examination On exami [facility] [place] today, she appears younger than her stated age. Skin is anicteric. Lungs are clear. Heart shows regular rate and rhythm. Abdomen is soft without focal masses or tenderness.
--- OUTSIDE RECORDS SUMMARY | 2024-08-12 15:48 | XMS_ITS ---
Author Organization [facility] Address [address] [place] [address] Care Team Providers Care Rope Cutter Name Role Phone Sunil Gastelum MD Primary Care Provider Anthony Tapia Jr Unavailable [phone] REASON FOR VISIT c diff infection , fecal transplant Encounters Encounter Location Date Provider Diagnosis [facility] [address] [place] [phone] 04/02/2023 Anthony Branham Jr Plan Of Treatment No Information Progress Notes * RICKIE DURÁN ADOB:[birth year] (88 yo F)Acc No.[id number]:04/02/2023 Progress Notes Patient:?RICKIE DURÁN Provider:?Anthony Branham MD :1935???Age:87 Y???Sex:Female D ate:04/02/2023 Address:[address] [place], [place] [id number] Pcp:Sunil Gastelum MD Subjective: * Chief Complaints: [...] MD Date:?1 06/02/2022 Generated for Printi ng/Faxing/eTransmitting on:?08/12/2024 03:48 PM EDT
--- OUTSIDE RECORDS SUMMARY | 2024-08-12 15:48 | XMS_ITS | Patient Health Record ---
Author Organization [facility] Address [address] [place] [address] Care Team Providers Care Administrative Services Coordinator Name Role Phone Sunil Gastelum MD Primary Care Provider Anthony Tapia Jr Unavailable [phone] Allergies No Known Allergies Reason For Referral [...] Problem Status W/U Status Risk Notes Problem [id number] Colon cancer screening (Z12.11) Active confirmed Problem 590073967 Abdominal bloati ng (R14.0) Active confirmed Problem 531168746 Rectal discharge (R19.8) Active confirmed Problem 14475522 Abdominal gas pa in (R14.1) Active confirmed Problem 996269585 Clostridioides difficile infection (A49.8) Active confirmed Plan Of Treatment No Information Insurance Providers Payer Name Payer Address Payer Phone Subscriber Number Group Number Insured Name Patient Relationship to Insured Coverage Start Date Coverage End Date MEDICARE OF [place] [address] [place] [id number] RICKIE DURÁN Self - patient is the insured MEDEX ATTN CLAIMS [address] [place] [address] [phone] [id number] RICKIE DURÁN Self - patient is the insured Medical (General) History Medical History History ICD Code Hypothyroidism Hyperlipidemia Urinary tract infections C. difficile infections Surgical History Surgery Date(Month/Year) bladder prolapse 2015 hysterectomy
== END 2024-08-12 13:51 | disposition home or self-care (01) ==
PROVIDERS: PCP Internal Medicine; Visit Provider Urology
DX: R19.7 Diarrhea, unspecified (principal); N39.0 Urinary tract infection, site not specified; Z86.19 Personal history of other infectious and parasitic diseases; Z13.9 Encounter for screening, unspecified
CPT/HCPCS: 99213; G2211

== ENCOUNTER → 2024-08-12 13:05 | Outpatient (BNVA) | payer MEDICARE, SELFPAY | PROVIDERS: PCP Internal Medicine; Visit Provider Urology | DX: R19.7 Diarrhea, unspecified (principal); N39.0 Urinary tract infection, site not specified; Z86.19 Personal history of other infectious and parasitic diseases | CPT/HCPCS: 81003; 99212 ==

== ENCOUNTER 2024-08-26 12:49 | Outpatient (REF) | payer MEDICARE, SELFPAY ==
[2024-08-26 14:12] LABS: Appearance Urine Cloudy; Color Urine Dark Yellow; Glucose Urine UA Negative (Negative); Leukocyte Esterase Urine Small (1+) (Negative); Nitrite Urine Negative (Negative); PH 5.5 (5.0-9.0); UMIC TRIGGER UA YES; Urine Blood Negative (Negative); Urine Ketones Trace mg/dL (Negative); Urine Protein Trace mg/dL (Neg-Trace)
[2024-08-26 14:38] LABS: Bacteria Urine 1+ (None Seen); RBC Urine 0-2 /HPF (0-2)
== END 2024-08-26 12:50 | disposition home or self-care (01) ==
LOC: HO.LAB 12:49
PROVIDERS: PCP Internal Medicine; Visit Provider Urology
DX: N39.0 Urinary tract infection, site not specified (principal)
CPT/HCPCS: 81001; 87086

== ENCOUNTER 2024-10-06 13:22 | Outpatient (AMB) | payer MEDICARE, SELFPAY ==
[2024-10-06 13:29] VITALS: PULSE 71; O2SAT 95
--- NOTE | 2024-10-06 13:29 | A.OFFVIS_ITS ---
Vital Signs 10/06/24 13:29 Height 5 ft 1 in Pulse 71 Pulse Source Pulse Oximeter Pulse Oximetry (%) 95 Oxygen Delivery Method Room Air Intake Visit Reasons: 6 month follow up vanco pills Allergies ibuprofen Allergy (Verified 10/06/24 13:29) upset stomach HPI HPI 6 month follow up vanco pills: Details: She reports no diarrhea She still takes Vancomycin 125 three times a week. [facility] Medical History Clostridium difficile colitis High cholesterol Hypothyroid Surgical History History of bladder suspension procedure History of hysterectomy Family History Father Colon cancer Mother Stroke Social History Housing: Apartment Alcohol intake: never Patient Tobacco Use Status: Former Tobacco user service: No Current occupational status: retired Cognitive needs: No Hearing needs: No Vision needs: Yes (rx glasses) Review of Systems Const All systems reviewed & are unremarkable except as noted in HPI and below Physical Exam Vital Signs: Last Vital Signs Pulse 71 10/06/24 13:29 Pulse Ox 95 10/06/24 13:29 Oxygen Delivery Method Room Air 10/06/24 13:29 Const General: cooperative Orientation/consciousness: patient oriented x3 HEENT Head: Yes normal to inspection Mouth: Normal oral and palatal mucosa present Eyes General: appearance normal, both eyes and all related structures Pupils: Equal, round and reactive pupils present Resp Effort & Inspection: normal respiratory effort Cardio Rate: regular rate Rhythm: regular rhythm GI Palpation (GI): Soft to palpation and nontender General: Yes no CVA tenderness Back/Spine/Pelvis Back: no CVA tenderness Skin General skin exam: no rashes or lesions noted Neuro General: patient oriented x3 Cranial nerves: Yes CN's II-XII intact bilaterally and Yes Equal, round and reactive pupils present Extrem General: Yes normal to inspection Psych Appearance: grossly normal Assessment & Plan Assessment & Plan (1) History of Clostridium difficile colitis: Comment: She has no recurrences Code(s): Z86.19 - Personal history of other infectious and parasitic diseases Category: Medical Plan: one year Vancomycin three times a week. She can try stopping or have PCP prescribe after this. Give Vancomycin po qid while on antibiotics and for 48 hours after. Medications: Changed From vancomycin take along with bactrim and for 7 days after 125 mg PO TID 14 days 42 caps 0RF To vancomycin take along with bactrim and for 7 days after 125 mg PO .every ,,Friday 13 caps 11RF 30 days Coding Level of Care Code Est Pt Level 3 (75922) Diagnoses History of Clostridium difficile colitis Z86.19
--- OUTSIDE RECORDS SUMMARY | 2024-10-06 13:36 | XMS_ITS ---
Author Organization [facility] Address [address] [place] [id number] Care Team Providers Care Refractory Products Supervisor Name Role Phone Sunil Gastelum MD Primary Care Provider Anthony Tapia Jr Unavailable [phone] Allergies No Known Allergies REASON FOR [...] Problem Status W/U Status Risk Notes Problem [id number] Colon cancer screening (Z12.11) Active confirmed Vital Signs Temperature 96.2 degrees Fahrenheit 07/10/19 24 Blood pressure systolic 00 mm Hg 07/10/19 24 Blood pressure diastolic 00 mm Hg 024 Height 62 in 07/10/2023 Weight 131 lbs 07/10/2023 BMI 23.96 kg/m2 07/10/2023 Encounters Encounter Location Date Provider Diagnosis [facility] [address] [place] [id number] 07/10/2023 Anthony Branham Jr Clostridioides difficile infection [...] * RICKIE DURÁN ADOB:[birth year] (87 yo F)Acc No.[id number]:07/10/2023 Progress Notes Patient:?RICKIE DURÁN A Provider:?Anthony Branham MD :1935???Age:87 Y???Sex:Female D ate:07/10/2023 Address:[address] [place], [place] [id number] Pcp:Sunil Gastelum MD Subjective: * Chief Complaints: [...] MD Date:?0 07/10/2023 Generated for Kerrie noel/Erendira/Netosmitting on:?10/06/2024 01:35 PM EDT History and Physical Notes * [...] Category Not es General Examination On exami [facility] today, she appears younger than her stated age. Skin is anicteric. Lungs are clear. Heart shows regular rate and rhythm. Abdomen is soft without focal masses or tenderness.
== END 2024-10-06 13:58 | disposition home or self-care (01) ==
LOC: HO.HID 13:22
PROVIDERS: PCP Internal Medicine; Visit Provider Internal Medicine
DX: Z86.19 Personal history of other infectious and parasitic diseases (principal)
CPT/HCPCS: 99213

== ENCOUNTER → 2024-10-06 13:22 | Outpatient (BNVA) | payer MEDICARE, SELFPAY | PROVIDERS: PCP Internal Medicine; Visit Provider Internal Medicine | DX: Z86.19 Personal history of other infectious and parasitic diseases (principal); Z79.2 Long term (current) use of antibiotics | CPT/HCPCS: 99212 ==

== ENCOUNTER 2024-10-08 14:37 | Outpatient (AMB) | payer MEDICARE, SELFPAY ==
[2024-10-08 14:31] VITALS: BP 130/70; PULSE 71; TEMP 36.8; O2SAT 92; BMI 25.2
--- NOTE | 2024-10-08 14:31 | A.OFFPC_ITS ---
Vital Signs 10/08/24 14:31 Height 5 ft Intake Visit Reasons: Routine Barrel Burner Required: No Accompanied by: Self / Same As Patient Allergies ibuprofen Allergy (Verified 10/08/24 14:32) upset stomach Tobacco use date assessed: 10/08/24 Fall risk assessment: No Falls in past year Last assessed Fall Risk: 10/08/24 Dental Screening Dental Screen Date: 10/08/24 Did you have a dental visit in the last 12 months?: Yes Did you have a dental problem in the last 6 months where you did not have access to dental care?: No PFSH Medical History Clostridium difficile colitis High cholesterol Hypothyroid Surgical History History of bladder suspension procedure History of hysterectomy Family History Father Colon cancer Mother Stroke Social History Housing: Apartment Alcohol intake: never Patient Tobacco Use Status: Former Tobacco user service: No Current occupational status: retired Cognitive needs: No Hearing needs: No Vision needs: Yes (rx glasses) Questionnaire PHQ-9 Over the last 2 weeks, how often have you been bothered by any of the following problems? 1. Little interest or pleasure in doing things: not at all 2. Feeling down, depressed, or hopeless: not at all 3. Trouble falling or staying asleep, or sleeping too much: not at all 4. Feeling tired or having little energy: not at all 5. Poor appetite or overeating: not at all 6. Feeling bad about yourself - or that you are a failure or have let yourself or your family down: not at all 7. Trouble concentrating on things, such as reading the newspaper or watching television: not at all 8. Moving or speaking so slowly that other people could have noticed. Or the opposite - being so fidgety or restless that you have been moving around a lot more than usual: not at all 9. Thoughts that you would be better off or of hurting yourself in some way: not at all Total score: 0 Source: Developed by Drs. Julien Natalia Santiago Kurt Kroenke and colleagues, with an educational alejandro from [employer]. Thrive Questionnaire Date Thrive assessed: 10/08/24 I am a: Patient Within the past 12 months, did the food you bought not last and you didn't have the money to get more?: Never true Within the past 12 months, did you worry whether your food would run out before you got money to buy more?: Never true Do you have trouble paying for medicines?: No Do you have trouble getting transportation to medical appointments?: No Do you have trouble paying your heating and electricity bill?: No Do you have trouble taking care of your child, family member or friend?: No Do you have trouble with day-to-day activities such as bathing, preparing meals, shopping, managing finances, etc.?: No Are you currently unemployed and looking for a job?: No Are you interested in more education?: No THRIVE Score: 0 AUDIT C Alcohol Use Questionnaire (AUDIT-C) 1. How often do you have a drink containing alcohol?: Never 3. How often do you have six or more drinks on one occasion?: Never Total Score: 0 DOMENICO-7 AMB Questionnaire DOMENICO-7 Date DOMENICO - 7 assessed: 10/08/24 Feeling nervous, anxious, or on edge: 0 = Not at all Not being able to stop or control worryin = Not at all Worrying too much about different things: 0 = Not at all Trouble relaxin = Not at all Being so restless that it is hard to sit still: 0 = Not at all Becoming easily annoyed or irritable: 0 = Not at all Feeling afraid as if something awful might happen: 0 = Not at all Total DOMENICO-7 score (0-4 normal; 5-9 mild; 10-14 moderate; 15-21 severe): 0 Source: Developed by Drs. Julien Landrum, Sukh Dunaway and colleagues, with an educational alejandro from [employer]. Physical exam (Primary Care) Tobacco/Smoking Status: Tobacco use Status Tobacco use date assessed 07/15/24 07/15/24 13:30 Patient Tobacco Use Status Former Tobacco user 08/02/24 13:24 Thrive Assessment: Date of Thrive Assessment Date Thrive assessed 07/15/24 07/15/24 13:30 Coding
--- OUTSIDE RECORDS SUMMARY | 2024-10-08 14:39 | XMS_ITS ---
Author Organization [facility] Address [address] [place] [phone] Care Team Providers Care Phys Ther Name Role Phone Sunil Gastelum MD Primary [...] Problem Status W/U Status Risk Notes Problem [id number] Colon cancer screening (Z12.11) Active confirmed Vital Signs Temperature 96.2 degrees Fahrenheit 07/10/19 24 Blood pressure systolic 00 mm Hg 07/10/19 24 Blood pressure diastolic 00 mm Hg 024 Height 62 in 07/10/2023 Weight 131 lbs 07/10/2023 BMI 23.96 kg/m2 07/10/2023 Encounters Encounter Location Date Provider Diagnosis [facility] [address] [place] [phone] 07/10/2023 Anthony Branham Jr Clostridioides difficile infection [...] * RICKIE DURÁN ADOB:[birth year] (87 yo F)Acc No.[id number]:07/10/2023 Progress Notes Patient:?RICKIE DURÁN A Provider:?Anthony Branham MD :1935???Age:87 Y???Sex:Female D ate:07/10/2023 Address:[address] [place], [place] [id number] Pcp:Sunil Gastelum MD Subjective: * Chief Complaints: [...] MD Date:?0 07/10/2023 Generated for Kerrie noel/Erendira/Netosmitting on:?10/08/2024 02:39 PM EDT History and Physical Notes * [...] Category Not es General Examination On exami [facility] today, she appears younger than her stated age. Skin is anicteric. Lungs are clear. Heart shows regular rate and rhythm. Abdomen is soft without focal masses or tenderness.
--- NOTE | 2024-10-08 14:46 | MHC.PC.OV ---
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 Required: No Accompanied by: Brother Allergies ibuprofen Allergy (Verified 10/08/24 14:32) upset stomach Tobacco use date assessed: 10/08/24 Fall risk assessment: No Falls in past year Last assessed Fall Risk: 10/08/24 Dental Screening Dental Screen Date: 10/08/24 Did you have a dental visit in the last 12 months?: Yes Did you have a dental problem in the last 6 months where you did not have access to dental care?: No HPI HPI Comments History of Present Illness Details The patient is an 88 year old female with a past medical history of hypothyroid, hyperlipidemia, reurrent UTI presenting for follow up Hypothyroid: On levothyroxine 50mcg daily. Last TSH wnl CV: On crestor 10mg daily. Takes ASA 81 mg daily Urology: Recurrent UTIs. following with urology. History of recurrent CDiff doing well on [facility] MWF. Has seen ID Having PT for right leg pain thought to be lumbar radiculopathy. Having trouble sleeping at night sometimes Stopped mammograms, colonoscopy ROS CONSTITUTIONAL: Denies weight loss, fever and chills. HEENT: Denies changes in vision and hearing. RESPIRATORY: Denies SOB and cough. CV: Denies palpitations and CP GI: Denies abdominal pain, nausea, vomiting and diarrhea. : Denies dysuria and urinary frequency. MSK: Denies new myalgia and joint pain. SKIN: Denies rash and pruritus. NEUROLOGICAL: Denies headache PSYCHIATRIC: Denies recent changes in mood. PHYSICAL EXAM: GENERAL: Alert and oriented x 3. NAD EYES: EOMI. Anicteric. HENT: Moist mucous membranes. No scleral icterus. No cervical lymphadenopathy. LUNGS: Clear to auscultation bilaterally. CARDIOVASCULAR: Regular rate and rhythm. No murmur. No JVD. ABDOMEN: Soft, non-tender +bs EXTREMITIES: No edema. Non-tender. SKIN: No rashes or lesions. Warm. NEUROLOGIC: No focal neurological deficits. CN II-XII grossly intact PSYCHIATRIC: Cooperative. Appropriate mood and affect [facility] Medical History Clostridium difficile colitis High cholesterol Hypothyroid Surgical History History of bladder suspension procedure History of hysterectomy Family History Father Colon cancer Mother Stroke Social History Housing: Apartment Alcohol intake: never Patient Tobacco Use Status: Former Tobacco user e-Cigarette/Vaping Use: Former Use service: No Current occupational status: retired Cognitive needs: No Hearing needs: No Vision needs: Yes (rx glasses) Questionnaire PHQ-9 Over the last 2 weeks, how often have you been bothered by any of the following problems? 1. Little interest or pleasure in doing things: not at all 2. Feeling down, depressed, or hopeless: not at all 3. Trouble falling or staying asleep, or sleeping too much: not at all 4. Feeling tired or having little energy: not at all 5. Poor appetite or overeating: not at all 6. Feeling bad about yourself - or that you are a failure or have let yourself or your family down: not at all 7. Trouble concentrating on things, such as reading the newspaper or watching television: not at all 8. Moving or speaking so slowly that other people could have noticed. Or the opposite - being so fidgety or restless that you have been moving around a lot more than usual: not at all 9. Thoughts that you would be better off or of hurting yourself in some way: not at all Total score: 0 Depression Screening Interpretation: Negative Depression Screening Done: Yes 73411 - PHQ-9 Billing: Yes Source: Developed by Drs. Julien Landrum, Natalia Mendoza, Sukh Sue and colleagues, with an educational alejandro from [employer]. Thrive Questionnaire Date Thrive assessed: 10/08/24 I am a: Patient Within the past 12 months, did the food you bought not last and you didn't have the money to get more?: Never true Within the past 12 months, did you worry whether your food would run out before you got money to buy more?: Never true Do you have trouble paying for medicines?: No Do you have trouble getting transportation to medical appointments?: No Do you have trouble paying your heating and electricity bill?: No Do you have trouble taking care of your child, family member or friend?: No Do you have trouble with day-to-day activities such as bathing, preparing meals, shopping, managing finances, etc.?: No Are you currently unemployed and looking for a job?: No Are you interested in more education?: No THRIVE Score: 0 AUDIT C Alcohol Use Questionnaire (AUDIT-C) 1. How often do you have a drink containing alcohol?: Never 3. How often do you have six or more drinks on one occasion?: Never Total Score: 0 DOMENICO-7 AMB Questionnaire DOMENICO-7 Date DOMENICO - 7 assessed: 10/08/24 Feeling nervous, anxious, or on edge: 0 = Not at all Not being able to stop or control worryin = Not at all Worrying too much about different things: 0 = Not at all Trouble relaxin = Not at all Being so restless that it is hard to sit still: 0 = Not at all Becoming easily annoyed or irritable: 0 = Not at all Feeling afraid as if something awful might happen: 0 = Not at all Total DOMENICO-7 score (0-4 normal; 5-9 mild; 10-14 moderate; 15-21 severe): 0 Source: Developed by Drs. Julien Landrum, Natalia Mendoza, Sukh Sue and colleagues, with an educational alejandro from [employer]. Physical exam (Primary Care) Vital Signs: Last Vital Signs Temp 98.2 F 10/08/24 14:31 Pulse 71 10/08/24 14:31 BP 130/70 10/08/24 14:31 Pulse Ox 92 10/08/24 14:31 Oxygen Delivery Method Room Air 10/08/24 14:31 BMI result Body Mass Index 25.2 Tobacco/Smoking Status: Tobacco use Status Tobacco use date assessed 10/08/24 10/08/24 14:51 Patient Tobacco Use Status Former Tobacco user 10/08/24 14:51 e-Cigarette/Vaping Use Former Use 10/08/24 14:51 PHQ-9: PHQ-9 Score PHQ-9: Total score 0 10/08/24 15:04 Depression Screening Interpretation: Negative Thrive Assessment: Date of Thrive Assessment Date Thrive assessed 10/08/24 10/08/24 14:51 Coding Level of Care Code Est Pt Level 3 (13427) Complex EM visit Add On G2211 Diagnoses Sciatica of right side without back pain M54.31 Clostridium difficile colitis A04.72 High cholesterol E78.00 Hypothyroidism, unspecified type E03.9 Hypothyroidism type: unspecified Additional Codes PHQ-9 - 40261 - PHQ-9 Billing: Yes ([id number]) Assessment & Plan Assessment & Plan (1) Sciatica of right side without back pain: Code(s): M54.31 - Sciatica, right side Category: Medical (2) Clostridium difficile colitis: Comment: She should conitinue suppressive treatment 125 M,W,Friday Code(s): A04.72 - Enterocolitis due to Clostridium difficile, not specified as recurrent Category: Medical (3) High cholesterol: Code(s): E78.00 - Pure hypercholesterolemia, unspecified Category: Medical (4) Hypothyroid: Code(s): E03.9 - Hypothyroidism, unspecified Category: Medical Qualifiers: Hypothyroidism type: unspecified Qualified Code(s): E03.9 - Hypothyroidism, unspecified Plan 88 year old follow up Hypothyroid is controlled Lumbar radiculopathy-gabapentin [facility] Orders: Orders Comprehensive Met. Panel Today E03.9 - Hypothyroidism, unspecified, E78.00 - Pure hypercholesterolemia, unspecified, M54.31 - Sciatica, right side, Z86.19 - Personal history of other infectious and parasitic diseases LDL Cholesterol Direct Today E03.9 - Hypothyroidism, unspecified, E78.00 - Pure hypercholesterolemia, unspecified, M54.31 - Sciatica, right side, Z86.19 - Personal history of other infectious and parasitic diseases TSH reflex Free T4 Today E03.9 - Hypothyroidism, unspecified, E78.00 - Pure hypercholesterolemia, unspecified, M54.31 - Sciatica, right side, Z86.19 - Personal history of other infectious and parasitic diseases Complete Blood Count Auto Diff Today E03.9 - Hypothyroidism, unspecified, E78.00 - Pure hypercholesterolemia, unspecified, M54.31 - Sciatica, right side, Z86.19 - Personal history of other infectious and parasitic diseases Hemoglobin A1c Today E03.9 - Hypothyroidism, unspecified, E78.00 - Pure hypercholesterolemia, unspecified, M54.31 - Sciatica, right side, Z86.19 - Personal history of other infectious and parasitic diseases Medications: New gabapentin 200 mg (2 x 100 mg) PO BEDTIME 180 caps 1RF
== END 2024-10-08 15:22 | disposition home or self-care (01) ==
LOC: HO.HMCHD 14:38
PROVIDERS: PCP Internal Medicine; Visit Provider Internal Medicine
DX: M54.31 Sciatica, right side (principal); A04.72 Enterocolitis due to Clostridium difficile, not specified as recurrent; E78.00 Pure hypercholesterolemia, unspecified; E03.9 Hypothyroidism, unspecified

== ENCOUNTER 2024-10-08 14:37 | Outpatient (REF) | payer MEDICARE, SELFPAY ==
[2024-10-08 15:41] LABS: MANUAL DIFF FLAG NO
[2024-10-08 16:38] LABS: Basophils Absolute Auto 0.1 X10*3/uL (0.0-0.2); Basophils Percent Auto 0.9 % (0-2); Eosinophils Absolute Auto 0.3 X10*3/uL (0.0-0.4); Eosinophils Percent Auto 3.7 % (0-4); Hematocrit 37.1 % (37.0-47.0); Hemoglobin 12.4 g/dl (12.0-16.0); Imm Gran Abs Auto 0.02 X10*3/uL (0.00-0.03); Imm Gran Pct Auto 0.2 % (0.0-0.4); Lymphocytes Absolute Auto 1.8 X10*3/uL (1.2-4.9); Mean Corpuscular HGB Conc 33.4 g/dl (31.0-35.0); Mean Corpuscular Hemoglobin 30.2 pg (27.0-33.0); Mean Corpuscular Volume 90.5 fL (80.0-98.0); Monocytes Absolute Auto 0.9 X10*3/uL (0.1-1.2); Monocytes Percent Auto 11.3 % (2-11); Neutrophils Percent Auto 61.9 % (45-73); Platelet Count 248 X10*3/uL (160-400); Red Cell Distribution Width 13.4 % (11.0-16.0); White Blood Count 8.1 X10*3/uL (4.8-10.8)
[2024-10-08 16:48] LABS: Estimated Average Glucose 114 mg/dL; Hemoglobin A1c % 5.6 % (<6.0)
[2024-10-08 18:09] LABS: Alanine Aminotransferase 26 U/L (0-31); Albumin Level 4.5 g/dL (3.5-5.0); Anion Gap 12 (12-20); Aspartate Amino Transferase 28 U/L (5-31); Bilirubin Total 0.5 mg/dL (0.0-1.0); Blood Urea Nitrogen 17 mg/dL (9-16); Calcium 9.6 mg/dL (8.4-10.2); Carbon Dioxide 29 mmol/L (22-29); Chloride 98 mmol/L (96-108); Estimated Glomerular Filt Rate 58; Glucose Random 86 mg/dL (60-115); Potassium 4.5 mmol/L (3.3-5.1); Sodium 134 mmol/L (135-145); Total Protein 7.4 g/dL (6.5-8.0)
[2024-10-08 18:26] LABS: TSH reflex Free T4 1.41 uIU/mL (0.32-4.0)
[2024-10-08 19:03] LABS: Alkaline Phosphatase 84 U/L (39-117)
[2024-10-10 23:58] LABS: LDL Cholesterol Direct 78 mg/dL (<100)
== END 2024-10-08 14:38 | disposition home or self-care (01) ==
LOC: HO.LAB 14:37
PROVIDERS: PCP Internal Medicine; Visit Provider Internal Medicine
DX: M54.31 Sciatica, right side (principal); A04.72 Enterocolitis due to Clostridium difficile, not specified as recurrent; E78.00 Pure hypercholesterolemia, unspecified; E03.9 Hypothyroidism, unspecified; N39.0 Urinary tract infection, site not specified; Z86.19 Personal history of other infectious and parasitic diseases; Z79.82 Long term (current) use of aspirin; Z79.899 Other long term (current) drug therapy
CPT/HCPCS: 36415; 80053; 83036; 83721; 84443; 85025; 96127; 99212

== ENCOUNTER 2024-10-20 13:21 | Outpatient (AMB) | payer MEDICARE, SELFPAY ==
--- OUTSIDE RECORDS SUMMARY | 2023-07-10 09:55 | XMS_ITS ---
Author Organization [facility] Address [address] [place] [phone] Care Team Providers Care Vb Net Developer Name Role Phone Sunil Gastelum MD Primary Care Provider Anthony Tapia Jr Unavailable [phone] Allergies No Known Allergies REASON FOR VISIT Patient presents today for followup Medications Medication SIG (Take, Route, Frequency, Duration) Notes Start Date End Date Status Vitamin D (Cholecalciferol) 25 MCG (1000 UT) 1 capsule Orally Once a day for 30 day(s) Active Aspirin Childrens 81 MG 1 tablet Orally Once a day for 30 day(s) Active Levothyroxine Sodium 50 MCG TAKE ONE TAB LET BY MOUTH EVERY DAY Oral for 30 Active Rosuvastatin Calcium 10 MG Oral for 90 Active Social History Tobacco Use: Social History Observation Description Date Details (start date - stop date) Former Smoker NA - NA Tobacco Use/Smoking Question Answer Notes Patient is a former smoker When did you stop smoking? 38 years ago How long has it been since you last smoked? > 10 years Alcohol Screen Question Answer Notes Did you have a drink containing alcohol in the p ast year? No Points 0 Interpretation Negative Problems Problem Type SNOMED Code ICD Code Onset Dates Problem Status W/U Status Risk Notes Problem 232088034 Colon cancer screening (Z12.11) Active confirmed Vital Signs Temperature 96.2 degrees Fahrenheit 07/10/19 24 Blood pressure systolic 00 mm Hg 07/10/19 24 Blood pressure diastolic 00 mm Hg 024 Height 62 in 07/10/2023 Weight 131 lbs 07/10/2023 BMI 23.96 kg/m2 07/10/2023 Encounters Encounter Location Date Provider Diagnosis [facility] [address] [place] [phone] 07/10/2023 Anthony Branham Jr Clostridioides difficile infection A49.8 and Colon cancer screening Z12.11 Assessments Encounter Date Diagnosis (ICD Code) Assessment Notes Treatment Notes Treatment Clinical Notes Section Notes 07/10/2023 Clostridioides difficile infection (ICD-10 - A49.8) Yaws material was printed At this time, Rickie is doing well. She will finish the taper as directed. We discussed with her avoiding antibiotics unless absolutely necessary. We'll see her in followup in the future as needed. She'll call if she has problems. We also discussed colon cancer screening is optional based on her age. She does not worse to pursue this at this time. 07/10/2023 Colon cancer screening (ICD-10 - Z12.11) At this time, Rickie is doing well. She will finish the taper as directed. We discussed with her avoiding antibiotics unless absolutely necessary. We'll see her in followup in the future as needed. She'll call if she has problems. We also discussed colon cancer screening is optional based on her age. She does not worse to pursue this at this time. Plan Of Treatment Treatment Notes Assessment Notes Clostridioides difficile infection Yaws material was printed Next Appt Details Follow Up: prn, Reason: Progress Notes * RICKIE DURÁN ADOB:[birth year] (87 yo F)Acc No.[id number]:07/10/2023 Progress Notes Patient: RICKIE MULLEN Provider: Sheridan Branham MD :1935 A ge:87 Y S ex:Female Date:07/10/2023 Address:[address] [place], [place] [id number] Pcp:Sunil Gastelum MD Subjective: * Chief Complaints: * 1 . Patient presents today for followup. * HPI: N ew symptom(s): Rickie is seen today in followup of recurrent C. difficile infection. She was last seen in January. Since that time she's done well. She is finishing up to 3 months vancomycin taper and is currently taking it 3 times per week. She has about 2 weeks left. She has been followed by Dr. Esqueda and has followup with her in september. She hasn't required antibiotic in over a month for urinary tract infection. Weight and appetite are good. She has no abdominal pain. Bowel movements are once a day and are nonbloody. * Medical History: H ypothyroidism, Hyperlipidemia, Urinary tract infections, C. difficile infections. * Surgical History: b ladder prolapse 2016, hysterectomy . * Family History: F ather: , diagnosed with Colon cancer. M other: . * Social History: T obacco Use: T obacco Use/Smoking P atient is a f ormer smoker, W hen did you stop smoking??38 years ago, H ow long has it been since you last smoked? > 10 years. D rugs/Alcohol: A lcohol Screen D id you have a drink containing alcohol in the past year? N o, P oints 0 , I nterpretation N egative. M iscellaneous: M arital status: . Occupation: retired. * Medications: T aking Vitamin D (Cholecalciferol) 25 MCG (1000 UT) Capsule 1 capsule Orally Once a day, Taking Aspirin Childrens 81 MG Tablet Chewable 1 tablet Orally Once a day, Taking Levothyroxine Sodium 50 MCG Tablet TAKE ONE TABLET BY MOUTH EVERY DAY Oral , Taking Rosuvastatin Calcium 10 MG Tablet Oral , Discontinued metroNIDAZOLE 500 MG Tablet TAKE ONE TABLET BY MOUTH THREE TIMES A DAY FOR 14 DAYS Oral , Medication List reviewed and reconciled with the patient * Allergies: N .K.D.A. Objective: * Vitals: W t: 131 lbs, Ht: 62 in, BMI:23.96 Index, BP: 00/00 mm Hg, Temp: 96.2. * Examination: G eneral Examination: O n examination today, she appears younger than her stated age. Skin is anicteric. Lungs are clear. Heart shows regular rate and rhythm. Abdomen is soft without focal masses or tenderness. Assessment: * Assessment: 1. C lostridioides difficile infection - A49.8 (Primary) 2 . C olon cancer screening - Z12.11 At this time, Rickie is doi ng well. She will finish the taper as directed. We discussed with her avoiding antibiotics unless absolutely necessary. We'll see her in followup in the future as needed. She'll call if she has problems. We also discussed colon cancer screening is optional based on her age. She does not worse to pursue this at this time. Plan: * Treatment: * Procedure Codes: G 9903 Pt scrn tbco id as non user, G9745 DOC RSN FOR NOT SCREEN/REC F/U HBP * Preventive Medicine: Urinary Incontinence: U rinary Incontinence A ssessment: A bsent, P osvaldo of care documented: N o, reason not specified. * Follow Up: p rn * * Sign off status: Completed true * Provider: Sheridan Branham MD Date: 0 07/10/2023 Generated for Printi ng/Fafayeg/eTransmitting on: 0 10/20/2024 03:14 PM EDT History and Physical Notes * HPI (History of Present Illness) Category Sub-Category Detail Notes Category Not es New symptom(s) Rickie is se en today in followup of recurrent C. difficile infection. She was last seen in January. Since that time she's done well. She is finishing up to 3 months vancomycin taper and is currently taking it 3 times per week. She has about 2 weeks left. She has been followed by Dr. Esqueda and has followup with her in september. She hasn't required antibiotic in over a month for urinary tract infection. Weight and appetite are good. She has no abdominal pain. Bowel movements are once a day and are nonbloody. Examination Category Sub-Category Detail Notes Category Not es General Examination On exami [facility] today, she appears younger than her stated age. Skin is anicteric. Lungs are clear. Heart shows regular rate and rhythm. Abdomen is soft without focal masses or tenderness.
--- NOTE | 2024-10-20 13:22 | A.OFFVIS_ITS ---
Vital Signs 10/20/24 13:29 Height 5 ft Weight 129 lb BMI 25.2 Intake Visit Reasons: OV-right hip osteoarthritis-Follow up Intake Note: Maryann is an 88 year old female who presents today a for a follow up of right hip pain. At her last visit her options were discussed and she was referred to physical therapy. Patient reports she attended physical therapy which had prov ided her with relief. States when she has pain it has been tolerable and finds relief with taking Tylenol. Allergies ibuprofen Allergy (Verified 10/20/24 13:29) upset stomach Medication List - Last Reconciled 10/20/24 by Cordelia Duval PA-C levothyroxine 50 mcg PO DAILY rosuvastatin 10 mg PO DAILY vancomycin 125 mg PO .every ,,Friday 30 days HPI HPI OV-right hip osteoarthritis-Follow up: Details: 89 yo female returns to the office today f/u rt hip pain with sciatica. She states she has been doing PT and has seen progress. She continues to ambulate with cane prn. She has no concerns today. [facility] Medical History Clostridium difficile colitis High cholesterol Hypothyroid Surgical History History of bladder suspension procedure History of hysterectomy Family History Father Colon cancer Mother Stroke Social History Housing: Apartment Alcohol intake: never Patient Tobacco Use Status: Former Tobacco user e-Cigarette/Vaping Use: Former Use service: No Current occupational status: retired Cognitive needs: No Hearing needs: No Vision needs: Yes (rx glasses) Review of Systems Const All systems reviewed & are unremarkable except as noted in HPI and below Physical Exam Vital Signs: BMI result Body Mass Index 25.2 Extrem Other: No pain with range of motion or hip flexion. Neurovascularly intact. Assessment & Plan Assessment & Plan (1) Osteoarthritis of right hip: Code(s): M16.11 - Unilateral primary osteoarthritis, right hip Category: Medical Plan: She will continue with her physical therapy program and home exercises. Increase activities as tolerated. If symptoms arise or there is any concerns she will contact our office otherwise follow up as needed. Coding Level of Care Code Est Pt Level 3 (50010) Complex EM visit Add On G2211 Diagnoses Osteoarthritis of right hip M16.11
[2024-10-20 13:29] VITALS: BMI 25.2
== END 2024-10-20 14:23 | disposition home or self-care (01) ==
LOC: HO.HOS 13:22
PROVIDERS: PCP Internal Medicine; Visit Provider Physician Assistant
DX: M16.11 Unilateral primary osteoarthritis, right hip (principal)
CPT/HCPCS: 99213; G2211

== ENCOUNTER → 2024-10-20 13:21 | Outpatient (BNVA) | payer MEDICARE, SELFPAY | PROVIDERS: PCP Internal Medicine; Visit Provider Physician Assistant | DX: M16.11 Unilateral primary osteoarthritis, right hip (principal) | CPT/HCPCS: 99212 ==

== ENCOUNTER 2024-10-27 11:39 | Outpatient (RCR) | payer MEDICARE, SELFPAY ==
--- NOTE | 2024-08-20 16:14 | MHC.PT.EP ---
[facility] Office [place] Office [place] Office [address] Ellis Garcia [address] [phone] F: [phone] F: [phone] F: [phone] F: [phone] Physical Therapy Plan of Care Date of Evaluation: 08/20/24 Date of Surgery: N/A Diagnosis: right hip pain; right sciatica without back pain (RL) Assessment: pt is a 88 y/o female presenting to physical therapy w/ referring diagnosis of right hip pain; right sciatica without back pain. Her signs and symptoms are consistent w/ L3-L4 radiculopathy +/- hip flexor strain. Impairments include pain, decreased range of motion, decreased strength, impaired functional mobility, impaired postural awareness, and altered ambulation mechanics. pt is a good candidate for skilled PT due to age, potential remediation of impairments, typical disease/condition progression and prognosis, comorbidities, and motivation. pt would benefit from skilled PT intervention to provide a tailored strengthening and stretching exercise program, functional training, gait training, postural re-training, neuromuscular re-education, modalities as needed for pain, equipment safety demonstration. Frequency and Duration: The patient will be seen 2x/wk for 4 wks Short Term Goals: pt will be I w/ HEP to promote self-management of condition. pt will improve L hip flexor strength by 1 MMT grade to promote ease in car transfers. Sponge Fisherman Goals: pt will report a statistically significant improvement in self-reported outcome measure, Shazia, to promote return to PLOF. pt will ambulate w/ LRAD and <2/10 R hip pain to promote return to community ambulation. Treatment Plan: Modalities to reduce pain, spasms and effusion. Manual therapy to restore motion and function. Therapeutic exercise to improve strength and flexibility. Neuromuscular re-education for posture and balance. Therapeutic activities to return to functional activities of daily living. Electronically signed by: Marlen Buchanan PT, DPT Please sign and return to therapist. Thank you for your referral.
--- NOTE | 2024-12-27 14:24 | MHC.PT.DC ---
[facility] [place] Office [place] Office [place] Office [address] Ellis Garcia 140 [facility] [phone] F: [phone] F: [phone] F: [phone] F: [phone] Physical Therapy Discharge Report Diagnosis: right hip pain; right sciatica without back pain (RL) Date of Surgery: N/A Date of Evaluation: 08/20/24 Date of Discharge: 12/27/24 Treatments to Date: 10 Cancellations to Date: 1 No Shows to Date: 0 Discharge Status: Improved Function Independent with HEP Discharge Summary: The patient overall made fair progress with physical therapy intervention at this time. She had fair carryover with instituting her home exercise program. She would often perform exercises not recommended or that would put more stress on her hip/groin regions. At this time, she has plateaued and is not making any further progress. The plan is to keep her chart open for 3 weeks. If I do not hear from her in that time I will discharge the chart. Electronically signed by: Marlen Buchanan PT, DPT Please sign and return to therapist. Thank you for your referral.
== END 2024-12-27 14:24 | disposition home or self-care (01) ==
LOC: HO.PT 11:39
PROVIDERS: PCP Internal Medicine; Visit Provider Physician Assistant
DX: M16.11 Unilateral primary osteoarthritis, right hip (principal); M54.31 Sciatica, right side
CPT/HCPCS: 97110; 97140; 97162

== ENCOUNTER 2025-02-10 12:44 | Outpatient (AMB) | payer MEDICARE, SELFPAY ==
--- NOTE | 2025-02-10 13:03 | A.OFFVIS_ITS ---
Intake Visit Reasons: 6m follow up Intake Note: Patient is present for 6 month/follow up Urology Medication:none Antibiotic Allergy:none Blood Thinner:none PVR:0ml Food And Beverage Outlets Manager Required: No Allergies ibuprofen Allergy (Verified 02/10/25 13:03) upset stomach Medication List - Last Reconciled 02/10/25 by Jamie Avalos MD levothyroxine 50 mcg PO DAILY rosuvastatin 10 mg PO DAILY vancomycin 125 mg PO .every ,,Friday 30 days HPI Comments Details: 02/10/2025-Maryann is an 89-year-old female who is followed for recurrent UTIs she has cool morbidity of disorder with symptoms niece history of C diff GI. History of Present Illness The patient is an 89-year-old female presenting with recurrent urinary tract infections. She has a history of bowel disorder characterized by loose stools and a previous infection with Clostridioides difficile, managed by the Infectious Disease team. The urinary tract infections have been recurrent, but the patient reports that she has not experienced an infection for a while, and her recent urinalysis showed no signs of infection. She is currently on suppressive therapy with vancomycin, which was initiated by an infectious disease specialist to prevent further infections. The patient has been advised by ID to continue the vancomycin therapy until she can consult with her primary care physician, whom she will see in March. Results - Urinalysis: Normal findings, no signs of infection Plan Recurrent Urinary Tract Infections - No recent UTI symptoms - Follow-up appointment scheduled for one year to monitor urinary health. 2. Bowel Disorder With Loose Stools - Comorbidity - Continue FU with GI 3. History Of Clostridioides Difficile Infection 08/12/24--Maryann is an 88-year-old female who presents to the office today for follow-up of her recurrent urinary tract infections. She has comorbidity of bowel disorder with symptoms of loose stools, h/o C. Diff followed by GI. H/O hyst and prolapse surgery x 2. UA today is within normal limits. The patient seen a few weeks ago by urgent care for UTI symptoms and treated with the antibiotics, Cipro 500 mg twice a day for 7 days. Urine culture 07/26/2024--E coli pansensitive. Because of her history of C diff I had discussed in the future, alternative options to consider such as bladder installations with gentamicin. The patient does not want to be catheterized. Continue to monitor follow-up in 6 months. Patient notes today that she has had some sciatica with referred pain to her right groin in has needed to use an assisted device during walking. 02/12/24--Maryann is an 88 year old female patient who presents to the office today for follow-up of her recurrent urinary tract infections. She has comorbidity of bowel disorder with symptoms of loose stools, h/o C. Diff followed by GI. H/O hyst and prolapse surgery x 2. UA today is within normal limits. She was treated with antibiotics on 08/02/24--- Cipro 500 mg twice a day for 7 days 09/15/23--Cystoscopy findings: Mild bladder wall thickening, no suspicious b ladder lesions visualized Pelvic exam narrow introitus status post colposcopy. Cystoscopy findings: Mild bladder wall thickening, no suspicious bladder lesions visualized. Follow-up in 4-5 months. 05/27/23--Maryann is a pleasant 87 year old female patient of Dr. Gastelum. She has a past medical history of hypothyroidism and hypercholesteremia. She presents to the office today for follow-up of her recurrent urinary tract infections. She has problems with loose stools and is folowed by outside food server Dr. Branham. She is s/p hysterectomy and states she had bladder prolapse repair x 2, the last one about 7 years ago. Discussed using baby wipes (front/back) post BM's. Pt declined office cysto today, had questions, wants to resched, office cystoscopy in 6 wks. Renal US -- 01/2023-- Kidneys WNL, bilateral kidneys with no calculi, lesions, or hydronephrosis noted. The bladder is well distended and normal. Bilateral ureteral jets are demonstrated. Pre void bladder volume is approximately 225 mL. Postvoid bladder volume is approximately 50 mL. [facility] Medical History Clostridium difficile colitis High cholesterol Hypothyroid Surgical History History of bladder suspension procedure History of hysterectomy Family History Father Colon cancer Mother Stroke Social History Housing: Apartment Alcohol intake: never Patient Tobacco Use Status: Former Tobacco user e-Cigarette/Vaping Use: Former Use service: No Current occupational status: retired Cognitive needs: No Hearing needs: No Vision needs: Yes (rx glasses) Review of Systems Const All systems reviewed & are unremarkable except as noted in HPI and below Reports no additional complaints Eyes Reports no additional complaints ENT Reports no additional complaints Card Reports no additional complaints Resp Reports no additional complaints GI Reports no additional complaints Reports as per HPI Musc Reports no additional complaints Skin/Breast Reports system reviewed and no additional complaints, except as documented Neuro Reports no additional complaints Psych Reports no additional complaints Endo Reports no additional complaints Avila/Lymph Reports no additional complaints Aller/Immun Reports no additional complaints Assessment & Plan Assessment & Plan (1) Frequent loose stools: Code(s): R19.7 - Diarrhea, unspecified Category: Medical (2) Recurrent UTI: Code(s): N39.0 - Urinary tract infection, site not specified Category: Medical (3) History of Clostridium difficile colitis: Comment: She has no recurrences Code(s): Z86.19 - Personal history of other infectious and parasitic diseases Category: Medical Plan Plan Recurrent Urinary Tract Infections - No recent UTI symptoms - Follow-up appointment scheduled for one year to monitor urinary health. 2. Bowel Disorder With Loose Stools - Comorbidity - Continue FU with GI 3. History Of Clostridioides Difficile Infection Patient Instructions: The patient had an opportunity to ask questions regarding treatment plan. The patient expressed understanding and agreement with the above treatment plan. The patient is aware they should contact our office by phone for worsening of their current condition or the appearance of new symptoms. Compliance is encouraged with any medications and followup testing that is ordered. It is a privilege to be allowed the opportunity to participate in the urologic care of your patient. If you have any questions or concerns regarding treatment for the above conditions please do not hesitate to contact me. The office telephone contact is [phone]. This note is constructed in part using voice recognition software. While every effort has been made to ensure accuracy supervisor picking crew errors may have been included. Yours sincerely, Jamie Avalos MD Scribe Plan - Not visible on output: Patient was informed and verbally consented to the use of an ambient scribe for clinic note documentation during this visit. Coding Level of Care Code Est Pt Level 3 (19455) Complex EM visit Add On G2211 Diagnoses Frequent loose stools R19.7 Recurrent UTI N39.0 History of Clostridium difficile colitis Z86.19
== END 2025-02-10 13:48 | disposition home or self-care (01) ==
LOC: HO.HUSH 12:45
PROVIDERS: PCP Internal Medicine; Visit Provider Urology
DX: R19.7 Diarrhea, unspecified (principal); N39.0 Urinary tract infection, site not specified; Z86.19 Personal history of other infectious and parasitic diseases; R31.29 Other microscopic hematuria
CPT/HCPCS: 99213; G2211

== ENCOUNTER → 2025-02-10 12:44 | Outpatient (BNVA) | payer MEDICARE, SELFPAY | PROVIDERS: PCP Internal Medicine; Visit Provider Urology | DX: N39.0 Urinary tract infection, site not specified (principal); R19.7 Diarrhea, unspecified; Z86.19 Personal history of other infectious and parasitic diseases; Z87.891 Personal history of nicotine dependence | CPT/HCPCS: 81003; 99212 ==

== ENCOUNTER 2025-02-18 12:23 | Outpatient (REF) | payer MEDICARE, SELFPAY ==
--- NOTE | ~2025-02-18 | XR_ITS ---
EXAMINATION: XR CHEST CLINICAL INFORMATION: J20.9 - Acute bronchitis, unspecified COMPARISON: November 02, 2022. TECHNIQUE: PA and lateral views. FINDINGS: Hyperinflated lungs. Pulmonary reticular pattern. Probable bronchiectasis, lung bases and right middle lung lobe. No pleural effusion or pneumothorax. Cardiomediastinal silhouette size is normal. Calcified plaque aorta. Multilevel thoracolumbar stenosis. XR/XR chest 2V IMPRESSION: Chronic interstitial lung disease with likely bronchiectasis, lung bases right middle lung lobe and lingula. Electronically signed by: Honorio Falcon MD 02/25/2025 09:18 AM EDT
[2025-02-18 17:12] LABS: Resp Syncy Virus RNA Qual PCR NEGATIVE (Negative); SARS COV2 PCR INHOUSE NEGATIVE (Negative)
== END 2025-02-18 12:24 | disposition home or self-care (01) ==
LOC: HO.HMGCX 12:23
PROVIDERS: PCP Student in an Organized Health Care Education/Training Program; Visit Provider Physician Assistant Medical
DX: J20.9 Acute bronchitis, unspecified (principal); Z87.891 Personal history of nicotine dependence
CPT/HCPCS: 71046; 87637; 99212

== ENCOUNTER 2025-02-18 12:23 | Outpatient (AMB) | payer MEDICARE, SELFPAY ==
[2025-02-18 12:33] VITALS: BP 138/72; PULSE 74; TEMP 37.2; O2SAT 93; BMI 25.6
--- NOTE | 2025-02-18 12:33 | MHC.OFFWIV ---
Intake Vital Signs 02/18/25 12:33 Height 5 ft Weight 131 lb BMI 25.6 BP 138/72 Blood Pressure Location Lt brachial Position Sitting Pulse 74 Pulse Source Pulse Oximeter Temp 98.9 F Temp Source Oral Pulse Oximetry (%) 93 Oxygen Delivery Method Room Air Intake Visit Reasons: EP upper respiratory issues Intake Note: Patient presents chest congestion, SOB/wheezing, cough x5 days - patient received Covid vac on 02/11/25 Patient Tobacco Use Status: Former Tobacco user Allergies ibuprofen Allergy (Verified 02/18/25 12:38) upset stomach HPI HPI Comments History of Present Illness Details This is an 89-year-old female who presented to the walk-in clinic accompanied by her daughter complaining of productive cough and shortness of breath x5 days. Patient states she received the COVID vaccination on 02/11/2025. She then started to develop viral URI symptoms such as nasal congestion, rhinorrhea, sore/itchy throat, fatigue/malaise, decreased appetite, and a productive cough about 2 days following the vaccine. She states she is coughing up yellow-brown sputum quite frequently throughout the day and night. She states that her nasal discharge is mostly clear but is occasionally green or yellow. She denies any fevers or chills. Patient states she also has associated shortness of breath, which occurs mostly with coughing fits but she does occasionally get short of breath while lying flat. She denies any lower extremity edema or sudden weight gain. She also reports wheezing. She the chest tightness, throat swelling, or rashes She denies any positive sick contacts. She denies history of asthma or COPD but she is a former smoker. [facility] Medical History Clostridium difficile colitis High cholesterol Hypothyroid Surgical History History of bladder suspension procedure History of hysterectomy Family History Father Colon cancer Mother Stroke Social History Housing: Apartment Alcohol intake: never Patient Tobacco Use Status: Former Tobacco user e-Cigarette/Vaping Use: Former Use service: No Current occupational status: retired Cognitive needs: No Hearing needs: No Vision needs: Yes (rx glasses) Review of Systems Const All systems reviewed & are unremarkable except as noted in HPI and below Reports no additional complaints Eyes Reports no additional complaints ENT Reports no additional complaints Card Reports no additional complaints Resp Reports no additional complaints GI Reports no additional complaints Reports no additional complaints Musc Reports no additional complaints Skin/Breast Reports system reviewed and no additional complaints, except as documented Neuro Reports no additional complaints Psych Reports no additional complaints Endo Reports no additional complaints Avila/Lymph Reports no additional complaints Aller/Immun Reports no additional complaints Physical Exam Exam Exam: Vital signs reviewed. Constitutional: Non-toxic appearing. No acute distress. Well-developed and well-nourished. HEENT: Normocephalic and atraumatic. There is cerumen in bilateral external auditory canals but visible tympanic membrane without erythema, edema, or bulging bilaterally. External auditory canals without erythema or edema bilaterally. Moist mucous membranes. No posterior pharyngeal erythema or exudates or swelling. Skin: Warm and dry. No rashes or lesions noted. Neck: Full and painless range of motion. No cervical lymphadenopathy. Cardio: Regular rate and rhythm. No murmurs, gallops, or rubs. No lower extremity edema. No JVD. Pulmonary: Patient has scattered wheezing and rhonchi throughout both lungs. No acute respiratory distress. No stridor. Gastrointestinal: Soft, nontender, and nondistended in all 4 quadrants. Musculoskeletal: Normal range of motion in joints throughout the body. No deformity or other signs of injury. Neuro: Alert and oriented x4. Cranial nerves 2-12 grossly intact. No focal deficits appreciated. Psych: Normal mood and affect. Vital Signs: Last Vital Signs Temp 98.9 F 02/18/25 12:33 Pulse 74 02/18/25 12:33 BP 138/72 02/18/25 12:33 Pulse Ox 93 02/18/25 12:33 Oxygen Delivery Method Room Air 02/18/25 12:33 BMI result Body Mass Index 25.6 Assessment & Plan Assessment & Plan (1) Acute bronchitis: Code(s): J20.9 - Acute bronchitis, unspecified Qualifiers: Bronchitis organism: unspecified organism Qualified Code(s): J20.9 - Acute bronchitis, unspecified Plan 89-year-old female who presented to the walk-in clinic accompanied by her daughter complaining of productive cough and shortness of breath x5 days. On physical examination, patient has expiratory wheezing and coarse rhonchi throughout both lungs but she is maintaining oxygen saturations well on room air without any acute respiratory distress. History and physical most consistent with an acute bronchitis with likely atypical/walking pneumonia. A chest x-ray was obtained, which was negative for acute pneumonic consolidation or infiltrate on my read but official read is still pending. Patient will be treated for acute bronchitis and suspected atypical pneumonia with p.o. prednisone 40 mg daily and p.o. azithromycin 500 mg today followed by 250 mg daily x4 days. Recommended continuing symptomatic management including rest, increased fluids, advil/tylenol for pain/fever, and over the counter throat lozenges/decongestants. Patient advised to follow up here or go to the emergency room for worsening/persistent symptoms such as worsening shortness of breath, increased sputum production/purulence, fever/chills, or hemoptysis. Orders: Orders XR chest 2V Today J20.9 - Acute bronchitis, unspecified SARS-CoV2/FLU/RSV Today J06.9 - Acute upper respiratory infection, unspecified Medications: New prednisone 40 mg (2 x 20 mg) PO DAILY 10 tabs 0RF azithromycin For 250 mg dose pack: take 500 mg today (day 1), then 250 mg for 4 days (days 2-5) PO 6 tabs 0RF Coding Level of Care Code Est Pt Level 3 (43036) Diagnoses Acute bronchitis, unspecified organism J20.9 Bronchitis organism: unspecified organism
--- OUTSIDE RECORDS SUMMARY | 2025-02-18 14:55 | XMS_ITS ---
Author Name [facility] Organization Unknown Care Team Organization Name Specialty Phone Email Start Date End Da te [facility] 03/12/2022 4
--- OUTSIDE RECORDS SUMMARY | 2025-02-18 14:55 | XMS_ITS | Patient Health Record ---
Author Organization [facility] Address [address] [place] [address] Care Team Providers Care Calibration Tester Name Role Phone Oriana (RETIRED) Sunil ROE Primary Care Provide r Anthony Craig Jr Unavailable Allergies No Known Allergies Reason For Referral No Information Medications Medication SIG (Take, Route, Frequency, Duration) Notes Start Date End Date Status Vitamin D (Cholecalciferol) 25 MCG (1000 UT) 1 capsule Orally Once a day; Duration: 30 day(s) Active Aspirin Childrens 81 MG 1 tablet Orally Once a day; Duration: 30 day(s) Active Levothyroxine Sodium 50 MCG TAKE ONE TAB LET BY MOUTH EVERY DAY Oral; Duration: 30 Active Rosuvastatin Calcium 10 MG Oral; Duration: 90 Active Immunizations Vaccine Route Administration Date [...] Problem Status W/U Status Risk Notes Problem Colon cancer screening (320607170) Colon cancer screening (Z12.11) Active confirmed Problem Abdominal bloating (644184946) Abdominal bloating (R14.0) Active confirmed Problem Rectal discharge (213223973) Rectal discharge (R19.8) Active confirmed Problem Flatulence, eructation and gas pain (367038346) Abdominal gas pain (R14.1) Active confirmed Problem Clostridioides difficile infection (448645074) Clostridioides difficile infection (A49.8) Active confirmed Plan Of Treatment No Information Insurance Providers Payer Name Payer Address Payer Phone Subscriber Number Group Number Insured Name Patient Relationship to Insured Coverage Start Date Coverage End Date MEDICARE OF [place] [address] [place] [address] [phone] [id number] RICKIE DURÁN Self - patient is the insured [employer] ATT[employer] CLAIMS [address] [place] [address] [id number] RICKIE DURÁN Self - patient is the insured Medical (General) History Medical History History ICD Code Hypothyroidism Hyperlipidemia Urinary tract infections C. difficile infections Surgical History Surgery Date(Month/Year) bladder prolapse 2016 hysterectomy
== END 2025-02-18 13:51 | disposition home or self-care (01) ==
PROVIDERS: PCP Internal Medicine; Visit Provider Physician Assistant Medical
DX: J20.9 Acute bronchitis, unspecified (principal)

== ENCOUNTER → 2025-02-18 13:32 | Outpatient (BNV) | payer MEDICARE, SELFPAY | PROVIDERS: PCP Student in an Organized Health Care Education/Training Program; Visit Provider Radiology Diagnostic Radiology | DX: J47.0 Bronchiectasis with acute lower respiratory infection (principal) | CPT/HCPCS: 71046 ==

== ENCOUNTER 2025-02-22 09:46 | Outpatient (AMB) | payer MEDICARE, SELFPAY ==
--- NOTE | 2025-02-22 09:49 | MHC.PC.OV ---
Vital Signs 02/22/25 09:54 Height 4 ft 11.06 in Weight 131 lb BMI 26.4 BP 154/78 H Blood Pressure Location Lt brachial Position Sitting Respiration 20 Pulse 76 Pulse Source Pulse Oximeter Temp 97.7 F Temp Source Temporal Artery Scan Pulse Oximetry (%) 94 Oxygen Delivery Method Room Air Intake Visit Reasons: Productive cough, after covid shot Php Developer Required: No Accompanied by: Self / Same As Patient Allergies ibuprofen Allergy (Verified 02/22/25 09:49) upset stomach Medication List - Last Reconciled 02/22/25 by Stanley Hedrick MD aspirin 81 mg PO DAILY cetirizine 10 mg PO DAILY levothyroxine 50 mcg PO DAILY mometasone 0.1% appl topical rosuvastatin 10 mg PO DAILY tacrolimus 0.1% topical PRN vancomycin 125 mg PO .every ,,Friday 30 days Tobacco use date assessed: 10/08/24 Dental Screening Dental Screen Date: 10/08/24 HPI HPI Comments History of Present Illness Details The patient is an 89-year-old female presenting with a follow-up visit after recent treatment for bacterial pneumonia. She was examined at urgent care five days ago and diagnosed with pneumonia after presenting symptoms of coughing up brown-colored sputum. A chest x-ray was performed, but the results were not definitive for pneumonia; however, clinical symptoms supported the diagnosis. She completed a course of antibiotics, specifically azithromycin, which ended today. She reports significant improvement in her symptoms with the resolution of coughing and no fevers or chills. She has also been taking Mucinex [id number] for symptomatic relief. Alongside this, the patient has a known history of recurrent Clostridium difficile infection, for which she is on a long-term prophylactic regimen of vancomycin, prescribed by her infection control doctor due to her recurrent C. diff history. Her blood pressure readings during the visit were noted to be elevated, reaching up to 178/???. The patient denies any history of chronic hypertension but acknowledges the recent acute elevation, likely due to her recent illness. Additionally, she manages hypercholesterolemia and hypothyroidism with rosuvastatin and levothyroxine, respectively. Medical History: - Bacterial Pneumonia - Clostridium difficile (C. diff) Infection with multiple recurrences - Hypertension (recent development) - Hypercholesterolemia - Hypothyroidism - Recurrent Urinary Tract Infections Medications: - Vancomycin for C. diff prophylaxis, to continue until October next year - Probiotic for gastrointestinal health - Rosuvastatin 10 mg for hypercholesterolemia - Levothyroxine 50 mcg for hypothyroidism - Mucinex for mucus thinning and symptom relief from pneumonia - Baby aspirin for heart health Diagnostic Results: - Labs, Tests and Diagnostics: - Recent chest x-ray showed some signs of pneumonia but not definitively convincing. Social History: - Engages in self-care and manages her health independently. - High level of daily activity and energy. - Does not wear compression stockings on hot days due to discomfort. [facility] Medical History (Updated 02/22/25 @ 10:43 by Stanley Hedrick MD) Hypertension URI (upper respiratory infection) Clostridium difficile colitis High cholesterol Hypothyroid Surgical History History of bladder suspension procedure History of hysterectomy Family History Father Colon cancer Mother Stroke Social History Housing: Apartment Alcohol intake: never Patient Tobacco Use Status: Former Tobacco user e-Cigarette/Vaping Use: Former Use service: No Current occupational status: retired Cognitive needs: No Hearing needs: No Vision needs: Yes (rx glasses) Questionnaire Thrive Questionnaire Date Thrive assessed: 10/08/24 DOMENICO-7 AMB Questionnaire DOMENICO-7 Date DOMENICO - 7 assessed: 10/08/24 Source: Developed by Drs. Julien Landrum, Natalia Mendoza, Sukh Sue and colleagues, with an educational alejandro from [employer]. Review of Systems Narrative - Respiratory: Denies ongoing cough, reports recent history of pneumonia with resolution of symptoms. - Cardiovascular: Denies history of hypertension, reports elevated blood pressure during visit. - Gastrointestinal: Reports history of frequent Clostridium difficile infection, currently managed with vancomycin. - Musculoskeletal: Denies joint pain. All systems reviewed & are unremarkable except as reviewed in HPI and above Physical exam (Primary Care) Vital Signs: Last Vital Signs Temp 97.7 F 02/22/25 09:54 Pulse 76 02/22/25 09:54 Resp 20 02/22/25 09:54 BP 154/78 H 02/22/25 09:54 Pulse Ox 94 02/22/25 09:54 Oxygen Delivery Method Room Air 02/22/25 09:54 BMI result Body Mass Index 26.4 Tobacco/Smoking Status: Tobacco use Status Tobacco use date assessed 10/08/24 02/22/25 09:51 Patient Tobacco Use Status Former Tobacco user 02/22/25 09:51 e-Cigarette/Vaping Use Former Use 02/22/25 09:51 Thrive Assessment: Date of Thrive Assessment Date Thrive assessed 10/08/24 02/22/25 09:51 Narrative General: +Alert and oriented, Well nourished, No acute distress. Eye: Pupils are equal, round and reactive to light, Intact accommodation, Extraocular movements are intact, Normal conjunctiva, Vision unchanged. HENT: Normocephalic, Atraumatic, Tympanic membranes are clear, Normal hearing, Oral mucosa is moist, No pharyngeal erythema, Ear canals patent. Respiratory: Lungs CTA bilaterally, No wheeze, Respirations are non-labored. Cardiovascular: Regular rate, Regular rhythm, S1 auscultated, S2 auscultated, No murmur, Good pulses equal in all extremities, Normal peripheral perfusion, No edema. Gastrointestinal: Soft, Non-tender, Non-distended, Normal bowel sounds, No organomegaly. Musculoskeletal: Normal range of motion, Normal strength, No tenderness, No swelling, No deformity, Normal gait. Integumentary: Warm, Dry, Purple Sage, Intact. Neurologic: Alert, Oriented, Normal sensory, Normal motor function, No focal defects, Cranial Nerves II-XII are grossly intact, Normal deep tendon reflexes. Psychiatric: Cooperative, Appropriate mood & affect, Normal judgment. Coding Level of Care Code Est Pt Level 4 (68998) Complex EM visit Add On G2211 Diagnoses Hypothyroidism, unspecified type E03.9 Hypothyroidism type: unspecified High cholesterol E78.00 History of Clostridium difficile colitis Z86.19 Upper respiratory tract infection, unspecified type J06.9 URI type: unspecified URI Hypertension, unspecified type I10 Hypertension type: unspecified Assessment & Plan Assessment & Plan (1) Hypothyroid: Comment: - Maintain current regimen of levothyroxine 50 mcg, noting stable thyroid levels. - Repeat TSH at next visit Code(s): E03.9 - Hypothyroidism, unspecified Category: Medical Qualifiers: Hypothyroidism type: unspecified Qualified Code(s): E03.9 - Hypothyroidism, unspecified (2) High cholesterol: Comment: - Continue rosuvastatin 10 mg daily and baby aspirin for continued management. Code(s): E78.00 - Pure hypercholesterolemia, unspecified Category: Medical (3) History of Clostridium difficile colitis: Comment: - Continue vancomycin three times a week for prophylactic management due to history of recurrent infection. - Plan to stop vancomycin therapy in October next year per ID and will have to be on Vancomycin QID if on further AB's Code(s): Z86.19 - Personal history of other infectious and parasitic diseases Category: Medical (4) URI (upper respiratory infection): Comment: - Treatment with azithromycin completed with significant improvement in symptoms. - Patient advised to continue using laec-yye-daoalka medications like Mucinex for symptomatic relief. Code(s): J06.9 - Acute upper respiratory infection, unspecified Category: Medical Qualifiers: URI type: unspecified URI Qualified Code(s): J06.9 - Acute upper respiratory infection, unspecified Plan: Healthcare Maintenance: - Continual use of probiotics as discussed for gastrointestinal health. - Regular use of prescribed medications for chronic conditions. - Reminder regarding the importance of compression stockings to prevent leg swelling. Patient was informed and verbally consented to the use of an ambient scribe for clinic note documentation during this visit. (5) Hypertension: Comment: Patient's pressure is elevated in clinic today over 150 with normal diastolic pressures. She has been on steroids for the past 5 days which may be possibly contributing to her elevated pressures. Advised continuous blood pressure monitoring for 1 week and to return to clinic with log as she is also hesitant to start medications. If they remain elevated will start on amlodipine 2.5 to start with. Code(s): I10 - Essential (primary) hypertension Category: Medical Qualifiers: Hypertension type: unspecified Qualified Code(s): I10 - Essential (primary) hypertension Plan I discussed the patient's recent treatment for bacterial pneumonia, issuing reassurance as she completed her antibiotic course with notable improvement. The vancomycin regimen continuation was reviewed, emphasizing its importance in light of recurrent C. diff infections, with future plans to reevaluate in October next year. We conversed about the recent hypertension record likely influenced by her recent illness, with recommendations to monitor and manage it through lifestyle adjustments. Patient's ongoing regimen for hypercholesterolemia and hypothyroidism was reaffirmed, confirming their effective current stability. We concluded with future follow-up arrangements barring any acute health concerns, arranging for blood work prior to the next visit for thorough evaluation. Medications: New aspirin 81 mg PO DAILY Patient Instructions: - Take probiotics with vancomycin as instructed. - Use Mucinex for ongoing relief from mucus congestion. - Monitor your blood pressure regularly and practice a heart-healthy lifestyle. - Continue taking rosuvastatin, levothyroxine, and baby aspirin as prescribed. - Wear compression stockings to manage leg swelling. - Reach out if experiencing any unusual symptoms or concerns.
[2025-02-22 09:54] VITALS: BP 154/78; PULSE 76; RESP 20; TEMP 36.5; O2SAT 94; BMI 26.4
== END 2025-02-22 10:27 | disposition home or self-care (01) ==
PROVIDERS: PCP Student in an Organized Health Care Education/Training Program; Visit Provider Student in an Organized Health Care Education/Training Program
DX: E03.9 Hypothyroidism, unspecified (principal); E78.00 Pure hypercholesterolemia, unspecified; Z86.19 Personal history of other infectious and parasitic diseases; J06.9 Acute upper respiratory infection, unspecified; I10 Essential (primary) hypertension

== ENCOUNTER → 2025-02-22 09:46 | Outpatient (BNVA) | payer MEDICARE, SELFPAY | PROVIDERS: PCP Internal Medicine; Visit Provider Student in an Organized Health Care Education/Training Program | DX: J06.9 Acute upper respiratory infection, unspecified (principal); E03.9 Hypothyroidism, unspecified; E78.00 Pure hypercholesterolemia, unspecified; I10 Essential (primary) hypertension; Z86.19 Personal history of other infectious and parasitic diseases; Z79.899 Other long term (current) drug therapy | CPT/HCPCS: 99212 ==

== ENCOUNTER 2025-03-01 13:19 | Outpatient (REF) | payer MEDICARE, SELFPAY | END 2025-03-01 13:20 | disposition home or self-care (01) | LOC: HO.LAB 13:19 | PROVIDERS: PCP Student in an Organized Health Care Education/Training Program; Visit Provider Student in an Organized Health Care Education/Training Program | DX: I10 Essential (primary) hypertension (principal); E03.9 Hypothyroidism, unspecified; E78.00 Pure hypercholesterolemia, unspecified; Z86.19 Personal history of other infectious and parasitic diseases; Z79.899 Other long term (current) drug therapy | CPT/HCPCS: 36415; 84443; 99212 ==

== ENCOUNTER 2025-03-01 13:19 | Outpatient (AMB) | payer MEDICARE, SELFPAY ==
--- NOTE | 2025-03-01 13:25 | MHC.PC.OV ---
Vital Signs 03/01/25 13:27 Height 5 ft Weight 126 lb 2 oz BMI 24.6 BP 120/58 L Blood Pressure Location Lt brachial Position Sitting Respiration 16 Pulse 72 Pulse Source Pulse Oximeter Temp 97.5 F Temp Source Oral Pulse Oximetry (%) 98 Oxygen Delivery Method Room Air Intake Visit Reasons: BP rechk General Assembler Installer Required: No Accompanied by: Brother Allergies ibuprofen Allergy (Verified 03/01/25 13:25) upset stomach Medication List - Last Reconciled 03/01/25 by Stanley Hedrick MD aspirin 81 mg PO DAILY cetirizine 10 mg PO DAILY levothyroxine 50 mcg PO DAILY mometasone 0.1% appl topical rosuvastatin 10 mg PO DAILY tacrolimus 0.1% topical PRN vancomycin 125 mg PO .every ,,Friday 30 days Tobacco use date assessed: 10/08/24 Dental Screening Dental Screen Date: 10/08/24 HPI HPI Comments History of Present Illness Details The patient is an 89-year-old female presenting for a follow-up visit. Her blood pressure has decreased to the 120s, an improvement she attributes to the discontinuation of prednisone. She also reports that her previous runny nose has resolved. The patient was recently evaluated for suspected pneumonia, but she was informed that imaging studies were negative for pneumonia. She believes her recent illness was a post-vaccination reaction to the COVID-19 shot. Her medical history includes hypothyroidism, for which she takes levothyroxine 50 mcg daily, with her last thyroid check in October. She also has hypercholesterolemia, managed with rosuvastatin 10 mg, and a history of a C. difficile infection in October, which was treated with vancomycin. The patient reports feeling well and states her joints feel beautiful following a prednisone injection. She maintains a healthy diet, eating soup almost daily, and sleeps for approximately nine hours each night. Medical History: - Hypothyroidism - Hypercholesterolemia - History of C. difficile colitis in October - Hypertension - Recent suspected pneumonia, ruled out via imaging - Post-COVID vaccination reaction Medications: - Aspirin for cardiac health - Cetirizine for allergies - Levothyroxine 50 mcg once daily for hypothyroidism - Rosuvastatin 10 mg for hypercholesterolemia - Vancomycin for C. difficile (completed in October) Diagnostic Results: - Imaging: Recent chest imaging showed no evidence of pneumonia. - Prior Labs: Thyroid levels were last checked in October. Social History: - Diet: Reports eating well, including soup almost daily. - Sleep: Reports sleeping about nine hours every night. - Activity: Reports she keeps herself active. [facility] Medical History (Updated 03/01/25 @ 13:57 by Stanley Hedrick MD) Hypertension URI (upper respiratory infection) Clostridium difficile colitis High cholesterol Hypothyroid Surgical History History of bladder suspension procedure History of hysterectomy Family History Father Colon cancer Mother Stroke Social History Housing: Apartment Alcohol intake: never Patient Tobacco Use Status: Former Tobacco user e-Cigarette/Vaping Use: Former Use service: No Current occupational status: retired Cognitive needs: No Hearing needs: No Vision needs: Yes (rx glasses) Questionnaire Thrive Questionnaire Date Thrive assessed: 10/08/24 DOMENICO-7 AMB Questionnaire DOMENICO-7 Date DOMENICO - 7 assessed: 10/08/24 Source: Developed by Drs. Julien Landrum, Natalia Mendoza, Sukh Sue and colleagues, with an educational alejandro from [employer]. Review of Systems Narrative - General: Reports feeling beautiful. - Reports feeling cold at times, especially in the winter. - Respiratory: Denies current symptoms; reports her prior runny nose has resolved. - Musculoskeletal: Reports her joint pain has resolved after a prednisone shot, stating they feel fine. All systems reviewed & are unremarkable except as reviewed in HPI and above Physical exam (Primary Care) Vital Signs: Last Vital Signs Temp 97.5 F 03/01/25 13:27 Pulse 72 03/01/25 13:27 Resp 16 03/01/25 13:27 BP 120/58 L 03/01/25 13:27 Pulse Ox 98 03/01/25 13:27 Oxygen Delivery Method Room Air 03/01/25 13:27 BMI result Body Mass Index 24.6 Tobacco/Smoking Status: Tobacco use Status Tobacco use date assessed 10/08/24 03/01/25 13:27 Patient Tobacco Use Status Former Tobacco user 03/01/25 13:27 e-Cigarette/Vaping Use Former Use 03/01/25 13:27 Thrive Assessment: Date of Thrive Assessment Date Thrive assessed 10/08/24 03/01/25 13:27 Narrative General: +Alert and oriented, Well nourished, No acute distress. Eye: Pupils are equal, round and reactive to light, Intact accommodation, Extraocular movements are intact, Normal conjunctiva, Vision unchanged. HENT: Normocephalic, Atraumatic, Tympanic membranes are clear, Normal hearing, Oral mucosa is moist, No pharyngeal erythema, Ear canals patent. Respiratory: Lungs CTA bilaterally, No wheeze, Respirations are non-labored, Heart and lungs sound really good. Cardiovascular: Regular rate, Regular rhythm, S1 auscultated, S2 auscultated, No murmur, Good pulses equal in all extremities, Normal peripheral perfusion, No edema. Gastrointestinal: Soft, Non-tender, Non-distended, Normal bowel sounds, No organomegaly. Musculoskeletal: Normal range of motion, Normal strength, No tenderness, No swelling, No deformity, Normal gait, Joints feeling fine after prednisone shot. Integumentary: Warm, Dry, Tobin, Intact, Hands are a little cold. Neurologic: Alert, Oriented, Normal sensory, Normal motor function, No focal defects, Cranial Nerves II-XII are grossly intact, Normal deep tendon reflexes. Psychiatric: Cooperative, Appropriate mood & affect, Normal judgment. Coding Level of Care Code Est Pt Level 4 (05312) Complex EM visit Add On G2211 Diagnoses Hypertension, unspecified type I10 Hypertension type: unspecified High cholesterol E78.00 Hypothyroidism, unspecified type E03.9 Hypothyroidism type: unspecified History of Clostridium difficile colitis Z86.19 Assessment & Plan Assessment & Plan (1) Hypertension: Comment: - The patient's blood pressure has improved to the 120s, likely secondary to stopping prednisone. - Continue to monitor off medications Code(s): I10 - Essential (primary) hypertension Category: Medical Qualifiers: Hypertension type: unspecified Qualified Code(s): I10 - Essential (primary) hypertension (2) High cholesterol: Comment: - The condition is managed with rosuvastatin 10 mg. - Continue current medication. Code(s): E78.00 - Pure hypercholesterolemia, unspecified Category: Medical (3) Hypothyroid: Comment: - The patient reports feeling cold, which could be a symptom of her thyroid condition. - Her thyroid levels were last checked in October. - Plan to check thyroid levels today and will adjust levothyroxine 50 mcg as needed, with follow-up via phone call. Code(s): E03.9 - Hypothyroidism, unspecified Category: Medical Qualifiers: Hypothyroidism type: unspecified Qualified Code(s): E03.9 - Hypothyroidism, unspecified (4) History of Clostridium difficile colitis: Comment: - Continue vancomycin three times a week for prophylactic management due to history of recurrent infection. - Plan to stop vancomycin therapy in October next year per ID and will have to be on Vancomycin QID if on further AB's Code(s): Z86.19 - Personal history of other infectious and parasitic diseases Category: Medical Plan: Health Maintenance: - Vaccinations: Advised the patient to continue receiving her influenza and COVID-19 shots, explaining that her previous mild reaction was a sign of a positive immune response and is preferable to a severe infection. - Lifestyle: The patient reports a healthy diet, including daily soup, and gets adequate sleep of about nine hours nightly. Patient was informed and verbally consented to the use of an ambient scribe for clinic note documentation during this visit. Plan I discussed with the patient that her blood pressure has nicely come down, likely after stopping prednisone. We reviewed her recent evaluation for pneumonia which was confirmed to be negative. In response to her concern about a reaction to the COVID-19 vaccine, I explained that it was a mild immune response, which is a good sign her body is building protection, and strongly recommended she continue with both her COVID and flu vaccinations to prevent severe illness. I informed her that we would be checking her thyroid levels today due to her symptom of feeling cold, and I will call her if any medication adjustments are needed based on the results. She was instructed to proceed to the lab for the blood draw. Orders: Orders TSH reflex Free T4 Today E03.9 - Hypothyroidism, unspecified Patient Instructions: - Please go to the lab across the street at the hospital to have your blood drawn today to check your thyroid levels. - No paperwork is needed. - We will call you if we need to make any changes to your thyroid medication based on the lab results. - Continue to take your medications as prescribed, including aspirin, cetirizine, levothyroxine, and rosuvastatin. - It is important to continue getting your flu and COVID-19 shots to protect you from getting very sick.
[2025-03-01 13:27] VITALS: BP 120/58; PULSE 72; RESP 16; TEMP 36.4; O2SAT 98; BMI 24.6
--- OUTSIDE RECORDS SUMMARY | 2025-03-01 17:04 | XMS_ITS | Patient Health Record ---
Author Organization [facility] Address [address] [place] [address] Care Team Providers Care Labor Economist Name Role Phone Oriana (RETIRED) Sunil ROE [...] Status Risk Notes Problem Colon cancer screening (207425383) Colon cancer screening (Z12.11) Active confirmed Problem Abdominal bloating (266526053) Abdominal bloating (R14.0) Active confirmed Problem Rectal discharge (133859757) Rectal discharge (R19.8) Active confirmed Problem Flatulence, eructation and gas pain (442213332) Abdominal gas pain (R14.1) Active confirmed Problem Clostridioides difficile infection (861170422) Clostridioides difficile infection (A49.8) Active confirmed Plan Of Treatment No Information Insurance Providers Payer Name Payer Address Payer Phone Subscriber Number Group Number Insured Name Patient Relationship to Insured Coverage Start Date Coverage End Date MEDICARE OF [place] [address] [place] [address] [id number] RICKIE DURÁN Self - patient is the insured [employer] ATT[employer] CLAIMS [address] [place] [phone] [id number] RICKIE DURÁN Self - patient is the insured Medical (General) History Medical History History ICD Code Hypothyroidism Hyperlipidemia Urinary tract infections C. difficile infections Surgical History Surgery Date(Month/Year) bladder prolapse 2016 hysterectomy
== END 2025-03-01 13:53 | disposition home or self-care (01) ==
LOC: HO.HMCHD 13:19
PROVIDERS: PCP Student in an Organized Health Care Education/Training Program; Visit Provider Student in an Organized Health Care Education/Training Program
DX: I10 Essential (primary) hypertension (principal); E78.00 Pure hypercholesterolemia, unspecified; E03.9 Hypothyroidism, unspecified; Z86.19 Personal history of other infectious and parasitic diseases

== ENCOUNTER 2025-03-02 14:07 | Outpatient (REF) | payer MEDICARE, SELFPAY ==
[2025-03-02 15:03] LABS: Appearance Urine Cloudy; Glucose Urine UA Negative (Negative); PH 6.0 (5.0-9.0); Specific Gravity - Urine 1.010 (1.005-1.025); UMIC TRIGGER UA YES
--- OUTSIDE RECORDS SUMMARY | 2025-03-02 18:10 | XMS_ITS | Patient Health Record ---
Author Organization [facility] Address [address] [place] [address] Care Team Providers Care Alumni Relations Officer Name Role Phone Oriana (RETIRED) Sunil ROE [...] Status Risk Notes Problem Colon cancer screening (295559084) Colon cancer screening (Z12.11) Active confirmed Problem Abdominal bloating (613458987) Abdominal bloating (R14.0) Active confirmed Problem Rectal discharge (916079916) Rectal discharge (R19.8) Active confirmed Problem Flatulence, eructation and gas pain (047107395) Abdominal gas pain (R14.1) Active confirmed Problem Clostridioides difficile infection (786789765) Clostridioides difficile infection (A49.8) Active confirmed Plan Of Treatment No Information Insurance Providers Payer Name Payer Address Payer Phone Subscriber Number Group Number Insured Name Patient Relationship to Insured Coverage Start Date Coverage End Date MEDICARE OF [place] [address] [place] [address] [id number] RICKIE DURÁN Self - patient is the insured MED[employer] ATTN CLAIMS [address] [place] [address] [id number] RICKIE DURÁN Self - patient is the insured Medical (General) History Medical History History ICD Code Hypothyroidism Hyperlipidemia Urinary tract infections C. difficile infections Surgical History Surgery Date(Month/Year) bladder prolapse 2016 hysterectomy
== END 2025-03-02 14:08 | disposition home or self-care (01) ==
LOC: HO.LAB 14:07
PROVIDERS: PCP Student in an Organized Health Care Education/Training Program; Visit Provider Urology
DX: N39.0 Urinary tract infection, site not specified (principal)
CPT/HCPCS: 81001; 87086; 87088; 87186

== ENCOUNTER 2025-03-23 13:57 | Outpatient (REF) | payer MEDICARE, SELFPAY ==
[2025-03-23 15:47] LABS: Appearance Urine Cloudy; Glucose Urine UA Negative (Negative); PH 6.0 (5.0-9.0); Specific Gravity - Urine 1.010 (1.005-1.025); UMIC TRIGGER UA YES
--- OUTSIDE RECORDS SUMMARY | 2025-03-24 02:07 | XMS_ITS | Patient Health Record ---
Author Organization [facility] Address [address] [place] [address] Care Team Providers Care Planisher Name Role Phone Oriana (RETIRED) Sunil ROE Primary Care Provide r Anthony Craig Jr Unavailable [phone] Allergies No Known Allergies Reason For Referral No Information Medications Medication SIG (Take, Route, Frequency, Duration) Notes Start Date End Date Status Vitamin D (Cholecalciferol) 25 MCG (1000 UT) Capsule 1 capsule Orally Once a day; Duration: 30 day(s) Active Aspirin Childrens 81 MG Tablet Chewable 1 tablet Orally Once a day; Duration: 30 day(s) Active Levothyroxine Sodium 50 MCG Tablet TAKE ONE TABLET BY MOUTH EVERY DAY Oral; Duration: 30 Active Rosuvastatin Calcium 10 MG Tablet Oral; Duration: 90 Active Immunizations Vaccine Route Administration Date Status Comme nts Influenza Unknown 03/11/2019 Refused Influenza Unknown 02/21/2021 Administered Influenza Unknown 02/19/2022 Administered Social History Tobacco Use: Social History Observation Description Date Details (start date - stop date) Former Smoker NA - NA Social History Drugs/Alcohol: Social Info Question Answer Notes Alcohol Screen Did you have a drink containing alcohol in the past year? No Points 0 Interpretation Negative Tobacco Use: Social Info Question Answer Notes Tobacco Use/Smoking Patient is a former smoker When did you stop smoking? 38 years ago How long has it been since you last smoked? > 10 years Additional Details Category Social Info Options Details Miscellaneous: Marital status: Occupation: retired Problems Problem Type SNOMED Code ICD Code Onset Dates Problem Status W/U Status Risk Notes Problem Colon cancer screening (922335516) Colon cancer screening (Z12.11) Active confirmed Problem Abdominal bloating (045362407) Abdominal bloating (R14.0) Active confirmed Problem Rectal discharge (544398286) Rectal discharge (R19.8) Active confirmed Problem Flatulence, eructation and gas pain (491697093) Abdominal gas pain (R14.1) Active confirmed Problem Clostridioides difficile infection (848804631) Clostridioides difficile infection (A49.8) Active confirmed Encounters Encounter Location Date Provider Diagnosis [facility] [address] [place] [address] 03/16/2025 Anthony Branham Jr Plan Of Treatment No Information Insurance Providers Payer Name Payer Address Payer Phone Subscriber Number Group Number Insured Name Patient Relationship to Insured Coverage Start Date Coverage End Date MEDICARE OF [place] [address] [place] [id number] RICKIE DURÁN Self - patient is the insured MED[employer] ATTN CLAIMS [address] [place] [address] [id number] RICKIE DURÁN Self - patient is the insured Medical (General) History Medical History History ICD Code Hypothyroidism Hyperlipidemia Urinary tract infections C. difficile infections Surgical History Surgery Date(Month/Year) bladder prolapse 2016 hysterectomy
== END 2025-03-23 13:58 | disposition home or self-care (01) ==
LOC: HO.LAB 13:57
PROVIDERS: PCP Student in an Organized Health Care Education/Training Program; Visit Provider Urology
DX: N39.0 Urinary tract infection, site not specified (principal)
CPT/HCPCS: 81001; 87086; 87088; 87186

== ENCOUNTER 2025-04-08 12:22 | Outpatient (REF) | payer MEDICARE, SELFPAY ==
[2025-04-08 14:21] LABS: Appearance Urine Turbid; Glucose Urine UA Negative (Negative); PH 6.5 (5.0-9.0); Specific Gravity - Urine 1.010 (1.005-1.025); UMIC TRIGGER UA YES
== END 2025-04-08 12:23 | disposition home or self-care (01) ==
LOC: HO.LAB 12:22
PROVIDERS: Visit Provider Urology
DX: N39.0 Urinary tract infection, site not specified (principal)
CPT/HCPCS: 81001; 87086; 87088; 87186

== ENCOUNTER 2025-04-23 10:02 | Emergency (ER) | payer MEDICARE, SELFPAY ==
--- NOTE | ~2025-04-23 | XR_ITS ---
CLINICAL HISTORY: pain 3 view, pelvis and right hip Comparison: CR/SR - XR HIP 1 VIEW RIGHT WITH PELVIS - 07/23/24 11:40 EDT Findings: No acute fracture or dislocation. Severe narrowing of the acetabulofemoral joint with subchondral sclerosis in subchondral cysts, progressed since prior. Mild narrowing in the left hip joint. Prominent arterial calcifications. IMPRESSION: 1. No acute fracture or dislocation. 2. Advanced osteoarthritis in the right hip. 3. Mild osteoarthritis in the left hip. This document has been electronically signed by: Neida Patel DO on 04/23/2025 14:32:06
[2025-04-23 10:13] VITALS: BP 128/78; PULSE 77; RESP 18; TEMP 36.7; O2SAT 93; BMI 24.7
--- NOTE | 2025-04-23 12:19 | ED.GENADULT ---
HPI - General Adult General Chief complaint: General Medical Stated complaint: groin area issue Time Seen by Provider: 04/23/25 12:18 Source: patient and family (patient's daughter) Mode of arrival: ambulatory Limitations: no limitations History of Present Illness ED Provider: Antonette Sahu PA-C HPI narrative: Patient is an 89 year old female with a history of HTN, hypothyroidism, OA, sciatica, and c.diff colitis presenting to the emergency department today with right groin pain. Patient states that she has been having right groin pain. Patient states that she wakes up and her groin feels fine but as the day goes on and she is ambulatory, she develops pain. Patient states that she rests and it gets better. Patient states that she was told previously she has right hip arthritis and would like to get an x-ray to evaluate the level of arthritis now. Patient denies any other complaints at this time. Related Data Home Medications ?Medication ?Instructions ?Recorded ?Confirmed aspirin 81 mg tablet 81 mg PO DAILY 02/22/25 03/01/25 cetirizine 10 mg tablet 10 mg PO DAILY 02/22/25 03/01/25 mometasone 0.1 % topical cream appl topical 02/22/25 03/01/25 tacrolimus 0.1 % topical ointment topical PRN 02/22/25 03/01/25 Previous Rx's ?Medication ?Instructions ?Recorded rosuvastatin 10 mg tablet 10 mg PO DAILY #90 tabs 10/05/24 vancomycin 125 mg capsule 125 mg PO .every M,W,Friday10/06/24 days #13 caps levothyroxine 50 mcg tablet 50 mcg PO DAILY #90 tabs 01/27/25 amoxicillin 500 mg-potassium 1 tab PO BID 7 days #14 tabs 03/04/25 clavulanate 125 mg tablet (Augmentin) nitrofurantoin 100 mg PO BID 5 days #10 caps 04/11/25 monohydrate/macrocrystals 100 mg capsule (Macrobid) nitrofurantoin 100 mg PO DAILY 90 days #90 caps 04/11/25 monohydrate/macrocrystals 100 mg capsule (Macrobid) cyclobenzaprine 5 mg tablet 5 mg PO TID PRN muscle spasm 7 04/23/25 days #21 tabs Allergies Allergy/AdvReac Type Severity Reaction Status Date / Time ibuprofen Allergy upset Verified 04/23/25 10:14 stomach Review of Systems Constitutional: Constitutional: Reports as per HPI Eyes: Eyes: Reports as per HPI ENT: Reports as per HPI Cardiovascular: Cardiovascular: Reports as per HPI Respiratory: Respiratory: Reports as per HPI Gastrointestinal: Gastrointestinal: Reports as per HPI Genitourinary: Genitourinary: Reports as per HPI Musculoskeletal: Musculoskeletal: Reports as per HPI Integumentary/Breasts: Skin/Breast: Reports as per HPI Neurologic: Reports as per HPI Psychiatric: Psychiatric: Reports as per HPI Endocrine: Endocrine: Reports as per HPI Hematologic/Lymphatic: Hematologic/Lymphatic: Reports as per HPI Allergic/Immunologic: Allergic/Immunologic: Reports as per HPI [facility] Past Medical History Attestation statement: The following information was validated with the patient. (patient's daughter validated all information) Source: old records reviewed, obtained from family (patient's daughter provided additional history and confirmed the history provided by the patient. ) and nursing notes reviewed Medical History Hypertension URI (upper respiratory infection) Clostridium difficile colitis High cholesterol Hypothyroid Surgical History History of bladder suspension procedure History of hysterectomy Family History Family History Father Colon cancer Mother Stroke Social History Social History Housing: Apartment Alcohol intake: never Patient Tobacco Use Status: Former Tobacco user e-Cigarette/Vaping Use: Former Use service: No Current occupational status: retired Cognitive needs: No Hearing needs: No Vision needs: Yes (rx glasses) Physical Exam ED Vital Signs: Vital Signs - 24 hr 04/23/25 10:13 04/23/25 12:30 04/23/25 15:21 Temperature 98.0 F 97.7 F 97.7 F Pulse Rate 77 62 62 Respiratory Rate 18 18 18 Blood Pressure 128/78 180/62 H 180/62 H Pulse Oximetry 93 96 96 Oxygen Delivery Method Room Air Room Air Room Air BMI result Body Mass Index 24.7 Const General: cooperative, no acute distress, alert and awake Nutritional Appearance: well nourished Orientation/consciousness: patient oriented x3 HENMT Head: Yes normal to inspection and Yes atraumatic Ears: hearing grossly normal bilaterally and external ears normal General nose exam: Normal external nose present, no nasal discharge noted and no epistaxis Face and sinus: Yes normal facial exam, No abrasion and No laceration Mouth: Normal oral and palatal mucosa present, no drooling and no muffled voice Eyes General: appearance normal, both eyes and all related structures Periorbital: periorbital findings normal Eyelids: Yes eyelids normal Conjunctivae: conjunctivae normal Pupils: Equal, round and reactive pupils present EOM: EOMs intact bilaterally Neck Neck: Yes normal visual inspection and Yes full ROM Resp Effort & Inspection: normal respiratory effort and able to speak in complete sentences Other: pain with palpation of the right inguinal ligament Neuro General: patient oriented x3, moves all extremities and CN's II-XI intact bilaterally Cranial nerves: Yes Equal, round and reactive pupils present Cognition (Neuro): normal cognition Extrem General: Yes normal to inspection, Yes full ROM and Yes capillary refill normal Psych Appearance: grossly normal Mental Status: mental status grossly normal Affect: normal affect Attitude: cooperative Thought process: Normal thought process present Thought content: Normal thought content present Insight: Good insight present (Psych) Medical Decision Making Medical Decision Making MDM Narrative: Patient is an 89 year old female with a history of HTN, hypothyroidism, OA, sciatica, and c.diff colitis presenting to the emergency department today with right groin pain. Patient's physical exam was as noted in the physical exam portion of this note and consistent with a groin strain / sprain. Patient's right hip / pelvis x-ray showed no acute process and showed worsening arthritis. I explained my physical exam findings as well as all test results to the patient and the patient's daughter. I answered all questions asked by the patient and the patient's daughter. Patient's daughter states that the patient has tolerated muscle relaxers in the past. Patient prescribed flexeril. I stressed the importance of the patient taking her medication as directed (either prescribed or as the over the counter packaging recommends). I stressed the importance of the patient following up with her primary care provider and the orthopedic team. I stressed the importance of the patient returning to the emergency department immediately if her symptoms were to worsen or if she were to develop any dizziness, shortness of breath, difficulty breathing, chest pain, blurry vision, loss of vision, nausea, vomiting, abdominal pain, fever, chills, back pain, or any other complaints. Patient and the patient's daughter verbalized agreement and understanding with this treatment plan and discharge. Differential Diagnosis Differential Diagnoses: The differential diagnosis associated with the presentation includes Patient would have been admitted to the hospital had her work up had any findings where hospital admission was appropriate and her clinical presentation warranted hospital admission. Independent Interpretation I performed an independent interpretation of an: Plain X-Ray Interpretation: My interpretation is in agreement with the radiologist's impression of this imaging study as written below. CLINICAL HISTORY: pain 3 view, pelvis and right hip Comparison: CR/SR - XR HIP 1 VIEW RIGHT WITH PELVIS - 07/23/24 11:40 EDT Findings: No acute fracture or dislocation. Severe narrowing of the acetabulofemoral joint with subchondral sclerosis in subchondral cysts, progressed since prior. Mild narrowing in the left hip joint. Prominent arterial calcifications. IMPRESSION: 1. No acute fracture or dislocation. 2. Advanced osteoarthritis in the right hip. 3. Mild osteoarthritis in the left hip. This document has been electronically signed by: Neida Patel DO on 04/23/2025 14:32:06 Dictated By: Neida Patel MD Signed By: Electronically signed by Neida Patel MD 04/23/25 1433 Radiology Impression Discussion of test interpretation with radiology: I have reviewed the radiologist's reading. Independent Historian Clinical information obtained from an independent historian. History obtained from or confirmed by: Other (patient's daughter provided additional history and confirmed the history provided by the patient. ) Prescription Management I considered prescription management with: Pain Medication (patient prescribed flexeril, which she has tolerated in the past, as noted in the MDM Rationale portion of this note. ) Discharge Plan Discharge Clinical Impression: Muscle spasm, Groin strain Patient Disposition: Home, Self-Care Instructions: Muscle Spasm (ED), Groin Strain (ED) Additional Instructions: Your hip x-ray showed advanced arthritis However, I believe your pain is secondary to a right sided groin muscle vs. inguinal ligament strain given your pain is directly over the right inguinal ligament. You should follow up with the orthopedic team. IF you are prescribed home medications and/or you are taking over the counter medications at home - it is very important you continue to do so as prescribed / directed unless told otherwise by a healthcare provider. Follow up with your primary care provider. Do your best to stay well hydrated and rest. Return to the emergency department immediately if your symptoms worsen or if you develop any numbness, tingling, dizziness, shortness of breath, difficulty breathing, chest pain, blurry vision, loss of vision, nausea, vomiting, abdominal pain, fever, chills, back pain, or any other complaints. Please see the information below about our Patient Portal. If you are not yet enrolled in the [facility] Patient Portal, you will receive an enrollment email invitation following your visit to any [facility] [place] setting. You may also self-enroll in the Patient Portal by visiting our website: [email or web address] The following information is required to access the Patient Portal: - [place] [facility] [place] - Your personal home email address (must match what is in your electronic medical record, Registration staff can assist with this) - Name - Date of Capabilities of the Patient Portal: - Message some providers - View upcoming appointments - Access your health summary, medical history, and visit history - View current conditions and allergies - View procedure and lab results - View your medications, including guidelines, side effects, and precautions - Complete pre-appointment questionnaires requested by your provider - Ready summary reports of your office visits and procedures To access the Patient Portal Mobile Macie, follow these directions: - Search [employer] in the Macie Store or [email or web address] Store - Download the Macie - Search for [employer] - Enter your login/password Prescriptions: New cyclobenzaprine 5 mg tablet 5 mg PO TID PRN (Reason: muscle spasm) 7 Days Qty: 21 0RF No Action rosuvastatin 10 mg tablet 10 mg PO DAILY Qty: 90 3RF levothyroxine 50 mcg tablet 50 mcg PO DAILY Qty: 90 0RF amoxicillin-pot clavulanate [Augmentin] 500-125 mg tablet 1 tab PO BID 7 Days Qty: 14 0RF nitrofurantoin monohyd/m-cryst [Macrobid] 100 mg capsule 100 mg PO DAILY 90 Days Qty: 90 0RF Rx Instructions: Take one tablet daily for 90 days. Start this course once finished with 5 day course for active UTI. must administer with a meal/food nitrofurantoin monohyd/m-cryst [Macrobid] 100 mg capsule 100 mg PO BID 5 Days Qty: 10 0RF Rx Instructions: must administer with a meal/food vancomycin 125 mg capsule 125 mg PO .every ,,Friday 30 Days Qty: 13 11RF Rx Instructions: take along with bactrim and for 7 days after cetirizine 10 mg tablet 10 mg PO DAILY tacrolimus 0.1 % ointment topical PRN mometasone 0.1 % cream topical aspirin 81 mg tablet 81 mg PO DAILY Referrals: [facility] [place] [facility] [Provider Group] Referral Note: Call to establish and follow up with the orthopedic team. Stanley Hedrick MD [Primary Care Provider, Internal Medicine] Interventions: ED Discharge Assessment Last Done: 04/23/25 15:21 Discharge Date/Time: 04/23/25 15:22 Print Language: Citizen Of [place]
--- NOTE | 2025-04-23 12:27 | PC.NURSE ---
ambulatory with cane to Rm 17. States PT exercises have been helpful. Pain right hip has begun to effect thigh and now radiates to abd. Worse always at night. better with rest.
[2025-04-23 12:30] VITALS: BP 180/62; PULSE 62; RESP 18; TEMP 36.5; O2SAT 96
--- NOTE | 2025-04-23 12:32 | PC.NURSE ---
palpable pedal pulse on right. no swelling noted. axox4.
--- OUTSIDE RECORDS SUMMARY | 2025-04-23 12:38 | XMS_ITS | Patient Health Record ---
Author Organization [facility] Address [address] [place] [address] Care Team Providers Care Safety Administrator Name Role Phone Oriana (RETIRED) Sunil ROE [...] Status Risk Notes Problem Colon cancer screening (004664470) Colon cancer screening (Z12.11) Active confirmed Problem Abdominal bloating (951371470) Abdominal bloating (R14.0) Active confirmed Problem Rectal discharge (381896482) Rectal discharge (R19.8) Active confirmed Problem Flatulence, eructation and gas pain (891089548) Abdominal gas pain (R14.1) Active confirmed Problem Clostridioides difficile infection (247908086) Clostridioides difficile infection (A49.8) Active confirmed Encounters Encounter Location Date Provider Diagnosis [facility] [address] [place] [address] 03/16/2025 Anthony Branham Jr Plan Of Treatment No Information Insurance Providers Payer Name Payer Address Payer Phone Subscriber Number Group Number Insured Name Patient Relationship to Insured Coverage Start Date Coverage End Date MEDICARE OF [place] [address] [place] [id number] RICKIE DURÁN Self - patient is the insured MED[employer] ATTN CLAIMS [address] [place] [address] [id number] RICKIE DURÁN Self - patient is the insured Medical (General) History Medical History History ICD Code Hypothyroidism Hyperlipidemia Urinary tract infections C. difficile infections Surgical History Surgery Date(Month/Year) bladder prolapse 2016 hysterectomy
[2025-04-23 15:21] VITALS: BP 180/62; PULSE 62; RESP 18; TEMP 36.5; O2SAT 96
== END 2025-04-23 15:22 | disposition home or self-care (01) ==
PROVIDERS: Emergency Provider Emergency Medicine; PCP Student in an Organized Health Care Education/Training Program
DX: M62.838 Other muscle spasm (principal); R10.31 Right lower quadrant pain; I10 Essential (primary) hypertension; Z79.899 Other long term (current) drug therapy
CPT/HCPCS: 73502; 99283; 99284

== ENCOUNTER → 2025-04-23 13:16 | Outpatient (BNV) | payer MEDICARE, SELFPAY | PROVIDERS: Emergency Provider Emergency Medicine; PCP Student in an Organized Health Care Education/Training Program; Visit Provider Radiology Diagnostic Radiology | DX: M16.0 Bilateral primary osteoarthritis of hip (principal) | CPT/HCPCS: 73502 ==